=== PATIENT | male | born 1955 | race African-American/Black ===

== ENCOUNTER 2017-09-21 08:28 | Inpatient (IN) | payer OTHER ==
[2017-09-21 09:47] VITALS: BMI 32.2
--- NOTE | 2017-09-21 13:26 | HP ---
CIWA Score - CIWA Score Nausea/Vomitin Muscle Tremors: 3 Anxiety: 3 Agitation: 3 Paroxysmal Sweats: 1-Minimal Palms Moist Orientation: 0-Oriented Tacttile Disturbances: 1-Very Mild Itch/Numbness Auditory Disturbances: 1-Very Mild Visual Disturbances: 0-None Headache: 2-Mild CIWA-Ar Total Score: 17 Admission ROS BHS - HPI Chief Complaint: i need help to stop drinking alcohol Allergies/Adverse Reactions: Allergies Allergy/AdvReac Type Severity Reaction Status Date / Time No Known Allergies Allergy Verified 11/13/15 17:51 History of Present Illness: this 61 years old male with alcohol dependence,seeking detox,withdrawal symptom, last detox unknown 02/23 not completed mmtp 100 mgs /day,last medicated 09/20/17 seen in [place] in 09/19/17 hypertension nicotine dependence schizophrenia and depression longest period of sobriety 7 years Exam Limitations: No Limitations - Ebola screening Have you traveled outside of the country in the last 21 days: No Have you had contact with anyone from an Ebola affected area: No Have you been sick,other than usual withdrawal symptoms: No - Review of Systems Constitutional: Loss of Appetite, Malaise, Night Sweats, Changes in sleep, Weakness, Unintentional Wgt. Loss EENT: reports: Nose Congestion Respiratory: reports: No Symptoms reported Cardiac: reports: No Symptoms Reported GI: reports: Diarrhea, Nausea, Vomiting, Abdominal cramping : reports: No Symptoms Reported Musculoskeletal: reports: Back Pain, Muscle Pain Integumentary: reports: Dryness Neuro: reports: Headache, Tremors Endocrine: reports: No Symptoms Reported Hematology: reports: No Symptoms Reported Psychiatric: reports: No Sypmtoms Reported, Judgement Intact, Mood/Affect Appropiate, Orientated x3, other (schizophrenia with depression) Patient History - Patient Medical History Hx Anemia: No Hx Asthma: No Hx Chronic Obstructive Pulmonary Disease (COPD): No Hx Cancer: No Hx Cardiac Disorders: No Hx Congestive Heart Failure: No Hx Hypertension: Yes (on meds.) Hx Hypercholesterolemia: No Hx Pacemaker: No HX Cerebrovascular Accident: No Hx Seizures: Yes (etoh related last in 2015) Hx Dementia: No Hx Diabetes: No Hx Gastrointestinal Disorders: Yes (acid reflux) Hx Liver Disease: No Hx Genitourinary Disorders: No Hx Sexually Transmitted Disorders: No Hx Renal Disease (ESRD): No Hx Thyroid Disease: No Hx Human Immunodeficiency Virus (HIV): No Hx Hepatitis C: No Hx Depression: Yes Hx Suicide Attempt: No Hx Bipolar Disorder: Yes (hospitalized years) Hx Schizophrenia: Yes Other Medical History: no suicidal,no homicidal - Patient Surgical History Past Surgical History: Yes Hx Neurologic Surgery: No Hx Cataract Extraction: No Hx Cardiac Surgery: No Hx Lung Surgery: No Hx Breast Surgery: No Hx Breast Biopsy: No Hx Abdominal Surgery: No Hx Appendectomy: No Hx Cholecystectomy: No Hx Genitourinary Surgery: No Hx Section: No Hx Orthopedic Surgery: No Other Surgical History: bilateral inguinal hernia repair, AT AGE 22 Anesthesia Reaction: No - PPD History Previous Implant?: Yes Documented Results: Negative w/o proof Implanted On Prior [facility] Admission?: Yes Date: 06/29/15 Results: 0 MM PPD to be Administered?: Yes - Smoking Cessation Smoking history: Current every day smoker Have you smoked in the past 12 months: Yes Aproximately how many cigarettes per day: 20 Hx Chewing Tobacco Use: No Initiated information on smoking cessation: Yes 'Breaking Loose' booklet given: 09/21/17 - Substance & Tx. History Hx Alcohol Use: Yes Hx Substance Use Treatment: Yes (unknown 02/23 not completed) - Substances Abused Alcohol Route: Oral Frequency: Daily Amount used: 2 1/2 [place] Age of first use: 15 Date of Last Use: 09/20/17 Family Disease History - Family Disease History Family Disease History: CA: Brother (four - one cancer), Other: Father ( living, RECOVERING ALCOHOLIC), Mother (living, HTN), Brother, Sister (one ' crib '), Son (four- healthy), Daughter (two -heatlhy) Admission Physical Exam BHS - Vital Signs Vital Signs: Vital Signs - 24 hr 09/21/17 09:42 Temperature 98 F Pulse Rate 75 Respiratory 20 Rate Blood Pressure 133/86 - Physical General Appearance: Yes: Moderate Distress, Tremorous, Irritable, Sweating, Anxious HEENTM: Yes: Normal ENT Inspection, STACEY, Pharynx Normal Respiratory: Yes: Within Normal Limits, Lungs Clear, Normal Breath Sounds Neck: Yes: Within Normal Limits, Supple, Trachea in good position Breast: Yes: Within Normal Limits Cardiology: Yes: Within Normal Limits, Regular Rhythm, Regular Rate, S1, S2 Abdominal: Yes: Within Normal Limits, Normal Bowel Sounds, Flat, Soft Genitourinary: Yes: Within Normal Limits Back: Yes: Within Normal Limits Musculoskeletal: Yes: full range of Motion, Back pain, Muscle Pain Extremities: Yes: Within Normal Limits, Normal Range of Motion, Tremors Neurological: Yes: leasing agent II-XII NML intact, Alert, Motor Strength 5/5 Integumentary: Yes: Dry Lymphatic: Yes: Within Normal Limits - Diagnostic (1) Alcohol dependence with uncomplicated withdrawal Current Visit: Yes Status: Acute (2) Asthma Current Visit: Yes Status: Acute Qualifiers: Asthma severity: mild Asthma persistence: intermittent Asthma complication type: uncomplicated Qualified Code(s): J45.20 - Mild intermittent asthma, uncomplicated (3) Dehydration Current Visit: Yes Status: Acute (4) HTN (hypertension) Current Visit: Yes Status: Chronic Qualifiers: Hypertension type: essential hypertension Qualified Code(s): I10 - Essential (primary) hypertension (5) Methadone maintenance therapy patient Current Visit: Yes Status: Chronic (6) Nicotine dependence Current Visit: Yes Status: Acute Qualifiers: Nicotine product type: cigarettes Substance use status: in withdrawal Qualified Code(s): F17.213 - Nicotine dependence, cigarettes, with withdrawal Cleared for Admission S - Detox or Rehab [facility] Level of Care: Medically Managed Detox Regimen/Protocol: Librium [facility] Breath Alcohol Content Breath Alcohol Content: 0 Urine Drug Screen - Results Drug Screen Negative: No Urine Drug Screen Results: BZO-Benzodiazepines, MTD-Methadone
[2017-09-21] MEDS ORDERED: MENTHOL/PHENOL 1 EACH UD MM PRN (13:36)
[2017-09-21] MEDS ORDERED: P-EPHED 60MG/TRIPROLIDI 2.5MG TABLET PO PRN (13:36)
[2017-09-21] MEDS ORDERED: IBUPROFEN 400 MG TABLET (FP) PO PRN (13:36)
[2017-09-21] MEDS ORDERED: ACETAMINOPHEN 325 MG TABLET (FP) PO PRN (13:36)
[2017-09-21] MEDS ORDERED: LOPERAMIDE HCL 2 MG CAPSULE PO PRN (13:36)
[2017-09-21] MEDS ORDERED: MAGNESIUM HYDROX 2400MG/30ML ORAL SUSPENSION 30 ML CUP PO PRN (13:36)
[2017-09-21] MEDS ORDERED: hydrOXYzine PAMOATE 50 MG CAPSULE (FP) PO PRN (13:36)
[2017-09-21] MEDS ORDERED: MAG HYDROX/AL HYDROX/SIMETH 30 ML UNIT-DOSE CUP PO PRN (13:36)
[2017-09-21] MEDS ORDERED: chlordiazePOXIDE HCL 25 MG CAPSULE PO PRN (13:36)
[2017-09-21] MEDS ORDERED: MAGNESIUM CITRATE 300 ML BOTTLE PO PRN (13:36)
[2017-09-21] MEDS ORDERED: METHADONE HCL 10 MG TABLET PO SCH (13:45)
[2017-09-21] MEDS ORDERED: METHADONE 80 MG, METHADONE 20 MG PO ONE (14:30)
[2017-09-21] MEDS ORDERED: chlordiazePOXIDE HCL 25 MG CAPSULE PO ONE (14:30)
[2017-09-21] MEDS ORDERED: METHADONE HCL 40 MG DISPERSABLE TABLET ONE (14:52)
[2017-09-21] MEDS ORDERED: METHADONE HCL 10 MG TABLET ONE (14:52)
[2017-09-21] MEDS: NICOTINE 21 MG/24 HOURS TOPICAL PATCH TD SCH (15:02)
[2017-09-21] MEDS: guaiFENesin/D-METHORPHAN HB 10 ML UNIT-DOSE CUPS PO PRN (15:02)
--- NOTE | 2017-09-21 17:09 | EKG ---
Test Reason : Blood Pressure : / mmHG Vent. Rate : 068 BPM Atrial Rate : 068 BPM P-R Int : 172 ms QRS Dur : 088 ms QT Int : 408 ms P-R-T Axes : 067 065 047 degrees QTc Int : 433 ms NORMAL SINUS RHYTHM NORMAL ECG NO PREVIOUS ECGS AVAILABLE Confirmed by MD SHELIA, HECTOR ([id number]) on 09/21/2017 5:08:56 PM Referred By: Confirmed By:HECTOR BASS MD
[2017-09-21] MEDS: chlordiazePOXIDE HCL 25 MG CAPSULE PO SCH ×2 (17:42→22:23)
[2017-09-21] MEDS ORDERED: MELATONIN 5 MG TABLETS PO PRN (22:00)
[2017-09-21] MEDS: THIAMINE HCL 100 MG TABLET (FP) PO SCH (22:23)
[2017-09-21 23:16] LABS: URINE APPEARANCE CLEAR; URINE BILIRUBIN NEGATIVE (<2.0 mg/dL); URINE COLOR DKYELLOW; URINE GLUCOSE (UA) NEGATIVE (NEGATIVE); URINE KETONE NEGATIVE (NEGATIVE); URINE LEUK ESTERASE TRACE (NEGATIVE); URINE NITRITE NEGATIVE (NEGATIVE); URINE UROBILINOGEN 4.0 E.U/dl mg/dL (0.2-1.0)
[2017-09-21 23:23] LABS: URINE PROTEIN 1+ (NEGATIVE)
[2017-09-21 23:27] LABS: EPI CELLS RARE /HPF (FEW)
[2017-09-22] MEDS ORDERED: METHADONE HCL 10 MG TABLET ONE (04:43)
[2017-09-22] MEDS ORDERED: METHADONE HCL 40 MG DISPERSABLE TABLET ONE (04:43)
[2017-09-22] MEDS: chlordiazePOXIDE HCL 25 MG CAPSULE PO SCH ×4 (05:18→22:32)
[2017-09-22] MEDS: METHADONE 80 MG, METHADONE 20 MG PO SCH (05:18)
--- NOTE | 2017-09-22 09:59 | CONSULT ---
[facility] Psychiatric Consult - Data Date of interview: 09/22/17 Admission source: Self-referred Identifying data: Mr Chase is a 61 years old Black male, father of 6 children, unemployed on SSI, domiciled seeking detox treatment for alcohol Substance Abuse History: Reports history of alcohol use. Refer to addiction counselor's note for further information Medical History: Significant for history of hypertension, GERD and history of alcohol-related seizue, pancreatitis and bilateral inguinal hernia repair. Patient is on methadone 100 mg/day. Smokes cigarettes 1 ppd Psychiatric History: Patient is known to senior writer from a previous admission in August 2015. History is consistent with previous one provided. Reports history of Paranoid Schizophrenia diagnosed at age 18 and has had multiple psychiatric hospitalizations to various facilities including [facility]( [facility], [facility]. Most recently in 2014 at [facility]. Denies history of suicidal attempt. Reports still seeing a therapist at [facility] in [place], [place] and he is prescribed Zoloft 100 mg po daily, Seroquel 400 mg po HS. At present, reports feeling depressed and sleping poorly Physical/Sexual Abuse/Trauma History: Denies history of emotional, physical or sexual abuse as well as DV relationship Additional Comment: Reports history of 4 previous arrests including one felony conviction. Denies being on parole/probation at present Mental Status Exam - Mental Status Exam Alert and Oriented to: Time, Place, Person Cognitive Function: Fair Patient Appearance: Well Groomed Mood: Depressed Affect: Appropriate Patient Behavior: Cooperative Speech Pattern: Clear Voice Loudness: Normal Thought Process: Intact, Goal Oriented Thought Disorder: Not Present Hallucinations: Denies Suicidal Ideation: Denies Homicidal Ideation: Denies Insight/Judgement: Poor Sleep: Poorly Appetite: Good Muscle strength/Tone: Normal Gait/Station: Normal Psychiatric Findings - Problem List ([place] 1, 2,3) (1) Paranoid schizophrenia Current Visit: No Status: Chronic (2) Alcohol-induced mood disorder Current Visit: Yes Status: Acute (3) Alcohol-induced sleep disorder Current Visit: Yes Status: Acute (4) Alcohol dependence with uncomplicated withdrawal Current Visit: Yes Status: Acute (5) Nicotine dependence Current Visit: Yes Status: Acute Qualifiers: Nicotine product type: cigarettes Substance use status: in withdrawal Qualified Code(s): F17.213 - Nicotine dependence, cigarettes, with withdrawal (6) Opioid dependence on agonist therapy Current Visit: Yes Status: Chronic (7) Obesity (BMI 30.0-34.9) Current Visit: Yes Status: Chronic (8) HTN (hypertension) Current Visit: Yes Status: Chronic Qualifiers: Hypertension type: essential hypertension Qualified Code(s): I10 - Essential (primary) hypertension - Initial Treatment Plan Initial Treatment Plan: 1) Continue Zoloft 100 mg po daily and Seroquel 400 mg po HS. 2) Continue inpatient detoxification
[2017-09-22 10:22] LABS: HEMATOCRIT 46.6 % (35.4-49); HEMOGLOBIN 15.8 GM/dL (11.7-16.9); MCH 34.3 pg (25.7-33.7); MCHC 33.9 g/dl (32.0-35.9); MEAN CELL VOLUME 100.9 fl (80-96); MEAN PLT VOLUME 11.3 fl (7.5-11.1); PLATELET COUNT 110 K/MM3 (134-434); RBC 4.62 M/mm3 (4.00-5.60); RDW 15.4 % (11.9-15.9); WHITE BLOOD COUNT 7.9 K/mm3 (4.0-10.0)
[2017-09-22 10:23] LABS: CHLORIDE 98 mmol/L (98-107); POTASSIUM 4.2 mmol/L (3.5-5.1); SODIUM 141 mmol/L (136-145)
[2017-09-22] MEDS: HYDROCHLOROTHIAZIDE 25 MG TABLET (FP) PO SCH (10:28)
[2017-09-22] MEDS: PRENATAL VITAMINS W/ FOLIC ACID TABLET (FP) PO SCH (10:28)
[2017-09-22] MEDS: NICOTINE 21 MG/24 HOURS TOPICAL PATCH TD SCH (10:28)
[2017-09-22] MEDS: guaiFENesin/D-METHORPHAN HB 10 ML UNIT-DOSE CUPS PO PRN (10:29)
[2017-09-22 11:07] LABS: ALBUMIN 4.3 g/dl (3.4-5.0); ALK PHOS 70 U/L (45-117); ANION GAP 10 (8-16); BILIRUBIN,TOTAL 1.6 mg/dL (0.2-1.0); BLOOD UREA NITROGEN 10 mg/dL (7-18); CALCIUM 9.6 mg/dL (8.5-10.1); CO2 33 mmol/L (21-32); CREATININE 0.8 mg/dL (0.7-1.3); GLUCOSE,RANDOM 104 mg/dL (74-106); SGOT/AST 247 U/L (15-37); SGPT/ALT 104 U/L (12-78)
[2017-09-22] MEDS: SERTRALINE HCL 50 MG TABLET (FP) PO SCH (11:16)
--- NOTE | 2017-09-22 11:30 | PN ---
S CIWA - CIWA Score Nausea/Vomitin-No Nausea/No Vomiting Muscle Tremors: 4-Moderate,w/Arms Extend Anxiety: 4-Mod. Anxious/Guarded Agitation: 4-Moderately Restless Paroxysmal Sweats: 1-Minimal Palms Moist Orientation: 0-Oriented Tacttile Disturbances: 0-None Auditory Disturbances: 0-None Visual Disturbances: 0-None Headache: 0-None Present CIWA-Ar Total Score: 13 BHS Progress Note (SOAP) Subjective: ANXIETY, SWEATS, IRRITABILITY,FATIGUE. OOB AMBULATING WITH STEADY GAIT. Objective: 09/22/17 11:29 Vital Signs 09/22/17 09/22/17 09/22/17 03:30 06:17 06:51 Temperature 97.4 F L Pulse Rate 75 Respiratory 18 18 18 Rate Blood Pressure 140/82 09/22/17 09:40 Temperature Pulse Rate 70 Respiratory 18 Rate Blood Pressure 115/77 Laboratory Tests 09/21/17 09/22/17 09/22/17 23:03 06:00 06:00 WBC 7.9 RBC 4.62 Hgb 15.8 D Hct 46.6 MCV 100.9 H MCH 34.3 H MCHC 33.9 RDW 15.4 Plt Count 110 L D MPV 11.3 H D Sodium 141 Potassium 4.2 Chloride 98 Carbon Dioxide 33 H Anion Gap 10 BUN 10 Creatinine 0.8 Creat Clearance w eGFR > 60 Random Glucose 104 Calcium 9.6 Total Bilirubin 1.6 H D AST 247 H D ALT 104 H Alkaline Phosphatase 70 Total Protein 8.0 D Albumin 4.3 Urine Color Dkyellow Urine Appearance Clear Urine pH 6.0 Ur Specific [place] 1.013 Urine Protein 1+ H Urine Glucose (UA) Negative Urine Ketones Negative Urine Blood Negative Urine Nitrite Negative Urine Bilirubin Negative Urine Urobilinogen 4.0 e.u/dl Ur Leukocyte Esterase Trace Urine WBC (Auto) <1 Urine RBC (Auto) 1 Ur Epithelial Cells Rare Assessment: 09/22/17 11:29 WITHDRAWAL SX Plan: CONTINUE DETOX
[2017-09-22] MEDS: THIAMINE HCL 100 MG TABLET (FP) PO SCH (22:32)
[2017-09-22] MEDS: QUEtiapine FUMARATE 400 MG TABLET PO SCH (22:38)
[2017-09-23] MEDS ORDERED: METHADONE HCL 10 MG TABLET ONE (04:39)
[2017-09-23] MEDS ORDERED: METHADONE HCL 40 MG DISPERSABLE TABLET ONE (04:39)
[2017-09-23] MEDS: chlordiazePOXIDE HCL 25 MG CAPSULE PO SCH ×2 (05:29→10:28)
[2017-09-23] MEDS: METHADONE 80 MG, METHADONE 20 MG PO SCH (05:29)
--- NOTE | 2017-09-23 09:51 | PN ---
S CIWA - CIWA Score Nausea/Vomitin-No Nausea/No Vomiting Muscle Tremors: 4-Moderate,w/Arms Extend Anxiety: 4-Mod. Anxious/Guarded Agitation: 4-Moderately Restless Paroxysmal Sweats: 1-Minimal Palms Moist Orientation: 0-Oriented Tacttile Disturbances: 0-None Auditory Disturbances: 0-None Visual Disturbances: 0-None Headache: 0-None Present CIWA-Ar Total Score: 13 BHS Progress Note (SOAP) Subjective: ANXIETY, SWEATS,FATIGUE. PT REPORTS COUGHING UP GREEN SPUTUM X 2 WEEKS. STATES HE DID NOT SEEK HELP ANY WHERE.STATES " I THOUGHT IT WAS FROM THE ALCOHOL BECAUSE I HAVE BEEN DRINKING SO I DECIDED TO COME TO DETOX". PT IS ALERT O X 3 WITH SLIGHT DROWSINESS. Objective: 09/23/17 09:51 Vital Signs 09/23/17 09/23/17 09/23/17 03:30 05:54 06:30 Temperature 96.7 F L Pulse Rate 68 Respiratory 18 18 18 Rate Blood Pressure 119/78 09/23/17 09:23 Temperature 97.0 F L Pulse Rate 73 Respiratory 20 Rate Blood Pressure 118/69 Laboratory Tests 09/21/17 09/22/17 09/22/17 23:03 06:00 06:00 WBC 7.9 RBC 4.62 Hgb 15.8 D Hct 46.6 MCV 100.9 H MCH 34.3 H MCHC 33.9 RDW 15.4 Plt Count 110 L D MPV 11.3 H D Sodium 141 Potassium 4.2 Chloride 98 Carbon Dioxide 33 H Anion Gap 10 BUN 10 Creatinine 0.8 Creat Clearance w eGFR > 60 Random Glucose 104 Calcium 9.6 Total Bilirubin 1.6 H D AST 247 H D ALT 104 H Alkaline Phosphatase 70 Total Protein 8.0 D Albumin 4.3 Urine Color Dkyellow Urine Appearance Clear Urine pH 6.0 Ur Specific [place] 1.013 Urine Protein 1+ H Urine Glucose (UA) Negative Urine Ketones Negative Urine Blood Negative Urine Nitrite Negative Urine Bilirubin Negative Urine Urobilinogen 4.0 e.u/dl Ur Leukocyte Esterase Trace Urine WBC (Auto) <1 Urine RBC (Auto) 1 Ur Epithelial Cells Rare RPR Titer 09/22/17 06:00 WBC RBC Hgb Hct MCV MCH MCHC RDW Plt Count MPV Sodium Potassium Chloride Carbon Dioxide Anion Gap BUN Creatinine Creat Clearance w eGFR Random Glucose Calcium Total Bilirubin AST ALT Alkaline Phosphatase Total Protein Albumin Urine Color Urine Appearance Urine pH Ur Specific [place] Urine Protein Urine Glucose (UA) Urine Ketones Urine Blood Urine Nitrite Urine Bilirubin Urine Urobilinogen Ur Leukocyte Esterase Urine WBC (Auto) Urine RBC (Auto) Ur Epithelial Cells RPR Titer Nonreactive LUNGS:CLEAR TO AUSCULTATE, NO WHEEZING, CRACKLES OR RHONCHI EKG:NSR NORMAL ECG Assessment: 09/23/17 09:51 WITHDRAWAL SX ACUTE BRONCHITIS Plan: CONTINUE DETOX BACTRIM DS 1 TAB PO BID X 5 DAYS INCREASE PO FLUIDS
[2017-09-23] MEDS: NICOTINE 21 MG/24 HOURS TOPICAL PATCH TD SCH (10:28)
[2017-09-23] MEDS: PRENATAL VITAMINS W/ FOLIC ACID TABLET (FP) PO SCH (10:28)
[2017-09-23] MEDS: HYDROCHLOROTHIAZIDE 25 MG TABLET (FP) PO SCH (10:28)
[2017-09-23] MEDS: SERTRALINE HCL 50 MG TABLET (FP) PO SCH (10:28)
[2017-09-23] MEDS: SULFAMETHOXAZOLE/TRIMETHOPRIM 800MG/160MG D.S. TABLET PO SCH ×2 (10:30→22:22)
[2017-09-23] MEDS: guaiFENesin/D-METHORPHAN HB 10 ML UNIT-DOSE CUPS PO PRN (10:46)
[2017-09-23] MEDS: chlordiazePOXIDE 5 MG CAPSULE PO SCH ×2 (17:41→22:22)
[2017-09-23] MEDS: THIAMINE HCL 100 MG TABLET (FP) PO SCH (22:22)
[2017-09-23] MEDS: QUEtiapine FUMARATE 400 MG TABLET PO SCH (23:02)
[2017-09-24] MEDS ORDERED: METHADONE HCL 10 MG TABLET ONE (04:32)
[2017-09-24] MEDS ORDERED: METHADONE HCL 40 MG DISPERSABLE TABLET ONE (04:32)
[2017-09-24] MEDS: METHADONE 80 MG, METHADONE 20 MG PO SCH (05:25)
[2017-09-24] MEDS: chlordiazePOXIDE 5 MG CAPSULE PO SCH ×2 (05:25→10:20)
[2017-09-24] MEDS: guaiFENesin/D-METHORPHAN HB 10 ML UNIT-DOSE CUPS PO PRN (07:34)
[2017-09-24] MEDS: PRENATAL VITAMINS W/ FOLIC ACID TABLET (FP) PO SCH (10:20)
[2017-09-24] MEDS: SULFAMETHOXAZOLE/TRIMETHOPRIM 800MG/160MG D.S. TABLET PO SCH ×2 (10:20→22:26)
[2017-09-24] MEDS: HYDROCHLOROTHIAZIDE 25 MG TABLET (FP) PO SCH (10:20)
[2017-09-24] MEDS: NICOTINE 21 MG/24 HOURS TOPICAL PATCH TD SCH (10:20)
[2017-09-24] MEDS: SERTRALINE HCL 50 MG TABLET (FP) PO SCH (10:20)
--- NOTE | 2017-09-24 12:03 | PN ---
BHS Progress Note (SOAP) Subjective: ANXIETY, SWEATS AND FATIGUE. PT IS OOB AMBULATING WITH STEADY GAIT. DECREASED TREMORS. Objective: 09/24/17 12:03 Vital Signs 09/24/17 09/24/17 06:15 09:44 Temperature 97.6 F 95.1 F L Pulse Rate 69 85 Respiratory 20 20 Rate Blood Pressure 112/75 120/78 Laboratory Tests 09/21/17 09/22/17 09/22/17 23:03 06:00 06:00 WBC 7.9 RBC 4.62 Hgb 15.8 D Hct 46.6 MCV 100.9 H MCH 34.3 H MCHC 33.9 RDW 15.4 Plt Count 110 L D MPV 11.3 H D Sodium 141 Potassium 4.2 Chloride 98 Carbon Dioxide 33 H Anion Gap 10 BUN 10 Creatinine 0.8 Creat Clearance w eGFR > 60 Random Glucose 104 Calcium 9.6 Total Bilirubin 1.6 H D AST 247 H D ALT 104 H Alkaline Phosphatase 70 Total Protein 8.0 D Albumin 4.3 Urine Color Dkyellow Urine Appearance Clear Urine pH 6.0 Ur Specific [place] 1.013 Urine Protein 1+ H Urine Glucose (UA) Negative Urine Ketones Negative Urine Blood Negative Urine Nitrite Negative Urine Bilirubin Negative Urine Urobilinogen 4.0 e.u/dl Ur Leukocyte Esterase Trace Urine WBC (Auto) <1 Urine RBC (Auto) 1 Ur Epithelial Cells Rare RPR Titer 09/22/17 06:00 WBC RBC Hgb Hct MCV MCH MCHC RDW Plt Count MPV Sodium Potassium Chloride Carbon Dioxide Anion Gap BUN Creatinine Creat Clearance w eGFR Random Glucose Calcium Total Bilirubin AST ALT Alkaline Phosphatase Total Protein Albumin Urine Color Urine Appearance Urine pH Ur Specific [place] Urine Protein Urine Glucose (UA) Urine Ketones Urine Blood Urine Nitrite Urine Bilirubin Urine Urobilinogen Ur Leukocyte Esterase Urine WBC (Auto) Urine RBC (Auto) Ur Epithelial Cells RPR Titer Nonreactive Assessment: 09/24/17 12:03 WITHDRAWAL SX Plan: CONTINUE DETOX
[2017-09-24] MEDS: chlordiazePOXIDE HCL 10 MG CAPSULE PO SCH ×2 (17:45→22:26)
[2017-09-24] MEDS: QUEtiapine FUMARATE 400 MG TABLET PO SCH (22:27)
[2017-09-24] MEDS: THIAMINE HCL 100 MG TABLET (FP) PO SCH (22:27)
--- NOTE | 2017-09-24 23:12 | PN ---
BHS Progress Note Note: Patient schedule for discharge on 09/25 wants to leave at 7 am to ensure getting to their MMTP/OTP program before they close.
[2017-09-25] MEDS: guaiFENesin/D-METHORPHAN HB 10 ML UNIT-DOSE CUPS PO PRN (01:23)
[2017-09-25] MEDS ORDERED: METHADONE HCL 40 MG DISPERSABLE TABLET ONE (03:29)
[2017-09-25] MEDS ORDERED: METHADONE HCL 10 MG TABLET ONE (03:29)
[2017-09-25] MEDS: METHADONE 80 MG, METHADONE 20 MG PO SCH (05:58)
[2017-09-25] MEDS: chlordiazePOXIDE HCL 10 MG CAPSULE PO SCH (05:58)
[2017-09-25 06:17] VITALS: BP 110/69; PULSE 76; TEMP 97.6
--- NOTE | 2017-09-25 19:24 | PN ---
BHS Progress Note (SOAP) Subjective: Patient denies current Detox symptoms and reports that he feels well overall. Objective: PATIENT A & O X 3, OBSERVED AMBULATING ON UNIT. NO ACUTE DISTRESS. 09/25/17 19:23 Vital Signs Temperature 97.6 F 09/25/17 06:16 Pulse Rate 76 09/25/17 06:16 Respiratory Rate 18 09/25/17 06:16 Blood Pressure 110/69 09/25/17 06:16 O2 Sat by Pulse Oximetry (%) Laboratory Tests 09/21/17 09/22/17 09/22/17 23:03 06:00 06:00 WBC 7.9 RBC 4.62 Hgb 15.8 D Hct 46.6 MCV 100.9 H MCH 34.3 H MCHC 33.9 RDW 15.4 Plt Count 110 L D MPV 11.3 H D Sodium 141 Potassium 4.2 Chloride 98 Carbon Dioxide 33 H Anion Gap 10 BUN 10 Creatinine 0.8 Creat Clearance w eGFR > 60 Random Glucose 104 Calcium 9.6 Total Bilirubin 1.6 H D AST 247 H D ALT 104 H Alkaline Phosphatase 70 Total Protein 8.0 D Albumin 4.3 Urine Color Dkyellow Urine Appearance Clear Urine pH 6.0 Ur Specific [place] 1.013 Urine Protein 1+ H Urine Glucose (UA) Negative Urine Ketones Negative Urine Blood Negative Urine Nitrite Negative Urine Bilirubin Negative Urine Urobilinogen 4.0 e.u/dl Ur Leukocyte Esterase Trace Urine WBC (Auto) <1 Urine RBC (Auto) 1 Ur Epithelial Cells Rare RPR Titer 09/22/17 06:00 WBC RBC Hgb Hct MCV MCH MCHC RDW Plt Count MPV Sodium Potassium Chloride Carbon Dioxide Anion Gap BUN Creatinine Creat Clearance w eGFR Random Glucose Calcium Total Bilirubin AST ALT Alkaline Phosphatase Total Protein Albumin Urine Color Urine Appearance Urine pH Ur Specific [place] Urine Protein Urine Glucose (UA) Urine Ketones Urine Blood Urine Nitrite Urine Bilirubin Urine Urobilinogen Ur Leukocyte Esterase Urine WBC (Auto) Urine RBC (Auto) Ur Epithelial Cells RPR Titer Nonreactive LABS NOTED. Assessment: 09/25/17 19:24 COMPLETION OF DETOX REGIMEN. Plan: PATIENT SCHEDULED FOR DISCHARGE FROM DETOX UNIT TODAY.
--- NOTE | 2017-09-25 19:29 | DS ---
[facility] Detox Discharge Summary Admission Date: 09/21/17 Discharge Date: 09/25/17 - History Present History: Alcohol Dependence, Opioid Dependence, MMTP Additional Comments: PATIENT RETURNING TO [facility] ([place] FOR AFTERCARE. PATIENT ALSO ADVISED TO CONSIDER LOCAL 12-STEP / NA/ [facility] OUTPATIENT SUPPORT [facility] PROGRAMS FOR AFTERCARE. Pertinent Past History: Asthma, HTN, MMTP, History of seizure (Due to Withdrawal), Paranoid Schizophrenia, Bipolar Disorder, Depression,, Acid Reflux, Nicotine Dependence. - Physical Exam Results Vital Signs: Vital Signs Temperature 97.6 F 09/25/17 06:16 Pulse Rate 76 09/25/17 06:16 Respiratory Rate 18 09/25/17 06:16 Blood Pressure 110/69 09/25/17 06:16 O2 Sat by Pulse Oximetry (%) Pertinent Admission Physical Exam Findings: WITHDRAWAL SYMPTOMS. Laboratory Tests 09/21/17 09/22/17 09/22/17 23:03 06:00 06:00 WBC 7.9 RBC 4.62 Hgb 15.8 D Hct 46.6 MCV 100.9 H MCH 34.3 H MCHC 33.9 RDW 15.4 Plt Count 110 L D MPV 11.3 H D Sodium 141 Potassium 4.2 Chloride 98 Carbon Dioxide 33 H Anion Gap 10 BUN 10 Creatinine 0.8 Creat Clearance w eGFR > 60 Random Glucose 104 Calcium 9.6 Total Bilirubin 1.6 H D AST 247 H D ALT 104 H Alkaline Phosphatase 70 Total Protein 8.0 D Albumin 4.3 Urine Color Dkyellow Urine Appearance Clear Urine pH 6.0 Ur Specific [place] 1.013 Urine Protein 1+ H Urine Glucose (UA) Negative Urine Ketones Negative Urine Blood Negative Urine Nitrite Negative Urine Bilirubin Negative Urine Urobilinogen 4.0 e.u/dl Ur Leukocyte Esterase Trace Urine WBC (Auto) <1 Urine RBC (Auto) 1 Ur Epithelial Cells Rare RPR Titer 09/22/17 06:00 WBC RBC Hgb Hct MCV MCH MCHC RDW Plt Count MPV Sodium Potassium Chloride Carbon Dioxide Anion Gap BUN Creatinine Creat Clearance w eGFR Random Glucose Calcium Total Bilirubin AST ALT Alkaline Phosphatase Total Protein Albumin Urine Color Urine Appearance Urine pH Ur Specific [place] Urine Protein Urine Glucose (UA) Urine Ketones Urine Blood Urine Nitrite Urine Bilirubin Urine Urobilinogen Ur Leukocyte Esterase Urine WBC (Auto) Urine RBC (Auto) Ur Epithelial Cells RPR Titer Nonreactive LABS NOTED. - Treatment Hospital Course: Detox Protocol Followed, Detoxed Safely, Responded well, Discharged Condition Good Patient has Accepted a Rehab Referral to: [facility] - Medication Discharge Medications: Ambulatory Orders Hydrochlorothiazide [Hctz -] 50 mg PO DAILY 09/21/17 Quetiapine Fumarate [Seroquel -] 400 mg PO HS #30 tablet 09/22/17 Sertraline HCl [Zoloft] 100 mg PO DAILY #30 tablet 09/22/17 - Diagnosis (1) Alcohol dependence with uncomplicated withdrawal Status: Acute (2) Alcohol-induced mood disorder Status: Acute (3) Alcohol-induced sleep disorder Status: Acute (4) Asthma Status: Acute Qualifiers: Asthma severity: mild Asthma persistence: intermittent Asthma complication type: uncomplicated Qualified Code(s): J45.20 - Mild intermittent asthma, uncomplicated (5) Dehydration Status: Acute (6) Nicotine dependence Status: Acute Qualifiers: Nicotine product type: cigarettes Substance use status: in withdrawal Qualified Code(s): F17.213 - Nicotine dependence, cigarettes, with withdrawal (7) HTN (hypertension) Status: Chronic Qualifiers: Hypertension type: essential hypertension Qualified Code(s): I10 - Essential (primary) hypertension (8) Methadone maintenance therapy patient Status: Chronic (9) Obesity (BMI 30.0-34.9) Status: Chronic (10) Opioid dependence on agonist therapy Status: Chronic (11) Paranoid schizophrenia Status: Chronic - AMA Did Patient Leave Against Medical Advice: No
== END 2017-09-25 06:40 | disposition home or self-care (01) | DRG 775 ==
LOC: YASAS 08:28 → Y3N 13:54
PROVIDERS: ADMIT Internal Medicine; ATTEND Internal Medicine
PROC: HZ2ZZZZ Detoxification Services for Substance Abuse Treatment (ICD-10-PCS; principal; 2017-09-21)
DX: F10.230 Alcohol dependence with withdrawal, uncomplicated (principal); F17.210 Nicotine dependence, cigarettes, uncomplicated; F10.24 Alcohol dependence with alcohol-induced mood disorder; F31.9 Bipolar disorder, unspecified; F20.0 Paranoid schizophrenia; I10 Essential (primary) hypertension; J45.20 Mild intermittent asthma, uncomplicated; E86.0 Dehydration; E66.9 Obesity, unspecified; Z68.32 Body mass index [BMI] 32.0-32.9, adult; J40 Bronchitis, not specified as acute or chronic
CPT/HCPCS: 36415; 80053; 81003; 81015; 85027; 86593; 93005; 93010

== ENCOUNTER 2018-07-28 13:28 | Inpatient (IN) | payer OTHER ==
[2018-07-28 15:54] VITALS: BMI 31.9
--- NOTE | 2018-07-28 16:31 | HP ---
CIWA Score Nausea/Vomitin Muscle Tremors: 4-Moderate,w/Arms Extend Anxiety: 4-Mod. Anxious/Guarded Agitation: 1-Slight > Activity Paroxysmal Sweats: No Perspiration Orientation: 0-Oriented Tacttile Disturbances: 0-None Auditory Disturbances: 0-None Visual Disturbances: 0-None Headache: 0-None Present CIWA-Ar Total Score: 15 - Admission Criteria OASAS Guidelines: Admission for Medically Managed Detox: Requires at least one of the followin. CIWA greater than 12 2. Seizures within the past 24 hours 3. Delirium tremens within the past 24 hours 4. Hallucinations within the past 24 hours 5. Acute intervention needed for co occurring medical disorder 6. Acute intervention needed for co occurring psychiatric disorder 7. Severe withdrawal that cannot be handled at a lower level of care (continued vomiting, continued diarrhea, abnormal vital signs) requiring intravenous medication and/or fluids 8. Admission ROS [facility] Chief Complaint: "I Want To Clean Up." Patient is here to Detox from Alcohol. Allergies/Adverse Reactions: Allergies Allergy/AdvReac Type Severity Reaction Status Date / Time No Known Allergies Allergy Verified 07/28/18 17:29 History of Present Illness: Patient is 62 YO male here for Detox from Alcohol. Patient has had several previous Detox / Rehab admissions at [facility] (Last: 09/2017). Patient is a Client at [facility] ([place] Last Day Medicated : 07/27/2018. VERIFICATION PENDING. NOTE: DUE TO TIME OF DAY IN WHICH DETOX ADMISSION H & P IS BEING PERFORMED, RN WILL BE UNABLE TO CONTACT [facility] TO VERIFY PATIENT'S DAILY [facility] DOSE PROGRAM IS CLOSED AT THIS TIME. PATIENT'S LAST DOSE OF METHADONE WAS YESTERDAY, 07/27/2018. PATIENT AWARE THAT HE WILL NOT RECEIVE HIS USUAL MAINTENANCE DOSE OF METHADONE FOR TODAY DOSE DUE TO INABILITY TO VERIFY DOSE A TTHIS TIME. DOSAGE CHAVA BE VERIFIED BY RN TOMORROW AM. PATIENT VERBALIZED UNDERSTANDING OF THIS. Confidential Drug Utilization Report Search Terms: Salvatore Mcdonough, 1955 Search Date: 07/28/2018 04:28:20 PM The Drug Utilization Report below displays all of the controlled substance prescriptions, if any, that your patient has filled in the last twelve months. The information displayed on this report is compiled from pharmacy submissions to the Department, and accurately reflects the information as submitted by the pharmacies. This report was requested by: Chris Thompson | Reference #: [id number] There are no results for the search terms that you entered. Exam Limitations: No Limitations - Ebola screening Have you traveled outside of the country in the last 21 days: No Have you had contact with anyone from an Ebola affected area: No Have you been sick,other than usual withdrawal symptoms: No Do you have a fever: No - Review of Systems Constitutional: Chills, Fever, Loss of Appetite, Malaise, Changes in sleep EENT: reports: Tearing Respiratory: reports: SOB with Exertion Cardiac: reports: No Symptoms Reported GI: reports: Nausea, Poor Appetite, Vomiting, Indigestion, Abdominal cramping : reports: No Symptoms Reported Musculoskeletal: reports: Joint Pain (Right Knee Pain X approx. 3 weeks. Patient denies known history of Previous Injury to Right Knee or of Knee disorder. No Erythema, Swelling, or wounds noted in right Knee area.), Joint Stiffness Integumentary: reports: No Symptoms Reported Neuro: reports: Tremors Endocrine: reports: No Symptoms Reported Hematology: reports: No Symptoms Reported Psychiatric: reports: Judgement Intact, Mood/Affect Appropiate, Orientated x3 Other Systems: Reviewed and Negative Patient History - Patient Medical History Hx Anemia: No Hx Asthma: No Hx Chronic Obstructive Pulmonary Disease (COPD): No Hx Cancer: No Hx Cardiac Disorders: No Hx Congestive Heart Failure: No Hx Hypertension: Yes (Takes HCTZ.) Hx Hypercholesterolemia: Yes (No Meds.) Hx Pacemaker: No HX Cerebrovascular Accident: No Hx Seizures: No Hx Dementia: No Hx Diabetes: No Hx Gastrointestinal Disorders: Yes (acid reflux; Has Taken Zantac in the Past.) Hx Liver Disease: No Hx Genitourinary Disorders: No Hx Sexually Transmitted Disorders: No Hx Renal Disease (ESRD): No Hx Thyroid Disease: No Hx Human Immunodeficiency Virus (HIV): No (Last Tested: Approx. 2 Years ago.) Hx Hepatitis C: No (Last Tested: Approx. 2 Years ago.) Hx Depression: Yes (Takes Seroquel.) Hx Suicide Attempt: No (PATIENT DENEIS CURRENT SI / HI.) Hx Bipolar Disorder: Yes (Takes Seroquel.) Hx Schizophrenia: Yes (No Medication.) Other Medical History: DENIES. - Patient Surgical History Past Surgical History: Yes Hx Neurologic Surgery: No Hx Cataract Extraction: No Hx Cardiac Surgery: No Hx Lung Surgery: No Hx Breast Surgery: No Hx Breast Biopsy: No Hx Abdominal Surgery: No Hx Appendectomy: No Hx Cholecystectomy: No Hx Genitourinary Surgery: No Hx Section: No Hx Orthopedic Surgery: No Other Surgical History: bilateral inguinal hernia repair, AT AGE 22 Anesthesia Reaction: No - PPD History Previous Implant?: Yes Documented Results: Negative w/proof Implanted On Prior [facility] Admission?: Yes Date: 09/23/17 Results: 0 MM PPD to be Administered?: No - Reproductive History Patient is a Female of Child Bearing Age (11 -55 yrs old): No (PATIENT IS MALE.) - Smoking Cessation Smoking history: Current every day smoker Have you smoked in the past 12 months: Yes Aproximately how many cigarettes per day: 10 Cigars Per Day: 0 Hx Chewing Tobacco Use: No Initiated information on smoking cessation: Yes 'Breaking Loose' booklet given: 07/28/18 (GIVEN ON UNIT.) - Substance & Tx. History Hx Alcohol Use: Yes Hx Substance Use: Yes Substance Use Type: Alcohol, Heroin, Prescribed (M.M.T.P. Methadone, 100 mg, Verification Pending.) Hx Substance Use Treatment: Yes (Previous Detox/Rehab at [facility] (Last: 09/24, Completed).) - Substances Abused Alcohol Route: Oral Frequency: Daily Amount used: 2 Pints Vodka. Age of first use: 14 Date of Last Use: 07/28/18 Heroin Route: Inhalation Frequency: Daily Amount used: 1 Bag. Age of first use: 17 Date of Last Use: 07/27/18 Family Disease History - Family Disease History Family Disease History: CA: Brother (Four - one from Throat Cancer), Other: Father (living, RECOVERING ALCOHOLIC), Brother, Sister (One ' crib '), Son (four- healthy), Daughter (two -heatlhy) Admission Physical Exam BHS - Vital Signs Vital Signs: Vital Signs - 24 hr 07/28/18 15:52 Temperature 97.3 F L Pulse Rate 82 Respiratory 18 Rate Blood Pressure 121/69 - Physical General Appearance: Yes: No Apparent Distress, Nourished, Appropriately Dressed , Tremorous, Anxious HEENTM: Yes: Hearing grossly Normal, Normocephalic, Normal Voice, STACEY, Pharynx Normal Respiratory: Yes: Chest Non-Tender, Lungs Clear, No Respiratory Distress, No Accessory Muscle Use Neck: Yes: No masses,lesions,Nodules, Supple, Trachea in good position Breast: Yes: Breast Exam Deferred Cardiology: Yes: Regular Rhythm, Regular Rate, S1, S2 Abdominal: Yes: Normal Bowel Sounds, Non Tender, Soft, Protuberent Genitourinary: Yes: Within Normal Limits Back: Yes: Normal Inspection Musculoskeletal: Yes: Gait Steady, Joint Stiffness (Right Knee, Patient Points Primarily To Patella Area. No erythema, Swelling, or Wounds noted in right Knee area.) Extremities: Yes: Normal Capillary Refill, Tremors Neurological: Yes: Fully Oriented, Alert, Normal Mood/Affect, Normal Response Integumentary: Yes: Normal Color, Dry, Warm Lymphatic: Yes: Within Normal Limits - Diagnostic (1) History of depression Current Visit: Yes Status: Chronic (2) History of bipolar disorder Current Visit: Yes Status: Chronic (3) History of schizophrenia Current Visit: Yes Status: Chronic (4) Right knee pain Current Visit: Yes Status: Acute Qualifiers: Chronicity: acute Qualified Code(s): M25.561 - Pain in right knee (5) Acid reflux Current Visit: Yes Status: Chronic Qualifiers: Esophagitis presence: esophagitis presence not specified Qualified Code(s) : K21.9 - Gastro-esophageal reflux disease without esophagitis (6) Alcohol dependence with uncomplicated withdrawal Current Visit: Yes Status: Acute (7) Nicotine dependence Current Visit: Yes Status: Chronic Qualifiers: Nicotine product type: cigarettes Substance use status: uncomplicated Qualified Code(s): F17.210 - Nicotine dependence, cigarettes, uncomplicated (8) HTN (hypertension) Current Visit: No Status: Chronic Qualifiers: Hypertension type: essential hypertension Qualified Code(s): I10 - Essential (primary) hypertension (9) Methadone maintenance therapy patient Current Visit: Yes Status: Chronic (10) Hypercholesterolemia Current Visit: Yes Status: Suspected Cleared for Admission S - Detox or Rehab [facility] Level of Care: Medically Managed Detox Regimen/Protocol: Librium [facility] Breath Alcohol Content Breath Alcohol Content: 0.138 Urine Drug Screen - Results Drug Screen Negative: No Urine Drug Screen Results: THC-Marijuana, OPI-Opiates, BZO-Benzodiazepines, MTD- Methadone, FEN-Fentanyl Inpatient Rehab Admission - Rehab Decision to Admit Inpatient rehab admission?: No
[2018-07-28] MEDS ORDERED: chlordiazePOXIDE HCL 25 MG CAPSULE PO ONE (17:47)
[2018-07-28] MEDS ORDERED: METHOCARBAMOL 500 MG TABLET PO PRN (17:47)
[2018-07-28] MEDS ORDERED: MAGNESIUM HYDROX 2400MG/30ML ORAL SUSPENSION 30 ML CUP PO PRN (17:47)
[2018-07-28] MEDS ORDERED: MAGNESIUM CITRATE 300 ML BOTTLE PO PRN (17:47)
[2018-07-28] MEDS ORDERED: chlordiazePOXIDE HCL 25 MG CAPSULE PO PRN (17:47)
[2018-07-28] MEDS ORDERED: DICYCLOMINE HCL 10 MG CAPSULE PO PRN (17:47)
[2018-07-28] MEDS ORDERED: MAG HYDROX/AL HYDROX/SIMETH 30 ML UNIT-DOSE CUP PO PRN (17:47)
[2018-07-28] MEDS ORDERED: MENTHOL/PHENOL 1 EACH UD MM PRN (17:47)
[2018-07-28] MEDS ORDERED: BISMUTH SUBSALICYLATE 524 MG/30 ML UD PO PRN (17:47)
[2018-07-28] MEDS ORDERED: NICOTINE POLACRILEX 2 MG GUM BUC PRN (17:47)
[2018-07-28] MEDS ORDERED: ACETAMINOPHEN 325 MG TABLET (FP) PO PRN (17:47)
[2018-07-28] MEDS: NICOTINE 21 MG/24 HOURS TOPICAL PATCH TD SCH (18:44)
[2018-07-28] MEDS: chlordiazePOXIDE HCL 25 MG CAPSULE PO SCH (22:15)
[2018-07-28] MEDS: RANITIDINE HCL 150 MG TABLET (FP) PO SCH (22:15)
[2018-07-28] MEDS: THIAMINE HCL 100 MG TABLET (FP) PO SCH (22:15)
[2018-07-28] MEDS: MELATONIN 5 MG TABLETS PO PRN (22:16)
[2018-07-29] MEDS: chlordiazePOXIDE HCL 25 MG CAPSULE PO SCH ×4 (05:16→22:00)
[2018-07-29] MEDS ORDERED: METHADONE HCL 10 MG TABLET PO ONE (08:32)
[2018-07-29] MEDS ORDERED: METHADONE 80 MG, METHADONE 20 MG PO ONE (08:40)
[2018-07-29] MEDS ORDERED: METHADONE HCL 40 MG DISPERSABLE TABLET ONE (09:17)
[2018-07-29] MEDS ORDERED: METHADONE HCL 10 MG TABLET ONE (09:18)
[2018-07-29] MEDS: PRENATAL VITAMINS W/ FOLIC ACID TABLET (FP) PO SCH (09:25)
[2018-07-29] MEDS: RANITIDINE HCL 150 MG TABLET (FP) PO SCH ×2 (09:25→22:00)
--- NOTE | 2018-07-29 09:40 | CONSULT ---
[facility] Psychiatric Consult - Data Date of interview: 07/29/18 Admission source: [facility] Identifying data: Patient is a 63 year old male, father of six, unemployed, domiciled, and is supported by [facility]. This is one of multiple admissions for patient. Patient admitted to for alcohol and opiate dependence. Substance Abuse History: Smoking Cessation. Smoking history: Current every day smoker. Have you smoked in the past 12 months: Yes. Aproximately how many cigarettes per day: 10. Cigars Per Day: 0. Hx Chewing Tobacco Use: No. Initiated information on smoking cessation: Yes. 'Breaking Loose' booklet given : 07/28/18 (GIVEN ON UNIT.). - Substance & Tx. History. Hx Alcohol Use: Yes. Hx Substance Use: Yes. Substance Use Type: Alcohol, Heroin, Prescribed ( M.M.T.P. Methadone, 100 mg, Verification Pending.). Hx Substance Use Treatment : Yes (Previous Detox/Rehab at [facility] (Last: 09/24, Completed).). - Substances Abused. Alcohol. Route: Oral. Frequency: Daily. Amount used: 2 Pints Vodka. Age of first use: 14. Date of Last Use: 07/28/18. Heroin. Route: Inhalation. Frequency: Daily. Amount used: 1 Bag. Age of first use: 17. Date of Last Use: 07/27/18 Medical History: hypertension, acid reflux, bilateral inguinal hernia repair at age 22 Psychiatric History: Patient reports h/o four psychiatric hospitalizations all at [facility]. Mr. Chase most recent psychiatric hospitalization was over ten years ago. He reports diagnosis of schizophrenia. Patient is asymtompatic, no psychosis noted. Mr. Chase receives outpatient psychiatric care from [facility] in the [place] and reports being prescribed Seroquel 400mg HS. Patient is also on methadone maintenance of 100mg daily. Mr. Chase denies h/o suicide attempt. At present, patient reports feeling fine but is experiencing difficulty sleeping. Physical/Sexual Abuse/Trauma History: denies. Mental Status Exam - Mental Status Exam Alert and Oriented to: Time, Place, Person Cognitive Function: Good Patient Appearance: Well Groomed Mood: Euthymic Affect: Appropriate Patient Behavior: Appropriate, Cooperative Speech Pattern: Clear, Appropriate Voice Loudness: Normal Thought Process: Intact, Goal Oriented Thought Disorder: Not Present Hallucinations: Denies Suicidal Ideation: Denies Homicidal Ideation: Denies Insight/Judgement: Poor Sleep: Poorly Appetite: Fair Muscle strength/Tone: Normal Gait/Station: Normal Psychiatric Findings - Problem List ([place] 1, 2,3) (1) Substance-induced sleep disorder Current Visit: Yes Status: Acute (2) Alcohol dependence with uncomplicated withdrawal Current Visit: Yes Status: Acute (3) Methadone maintenance therapy patient Current Visit: Yes Status: Chronic (4) Nicotine dependence Current Visit: Yes Status: Chronic Qualifiers: Nicotine product type: cigarettes Substance use status: uncomplicated Qualified Code(s): F17.210 - Nicotine dependence, cigarettes, uncomplicated (5) Schizophrenia Current Visit: Yes Status: Suspected Comment: Self reports. Patient is asymptomatic (6) Substance induced mood disorder Current Visit: Yes Status: Acute - Initial Treatment Plan Initial Treatment Plan: Psychoeduction provided. Detoxification in progress. [facility] pharmacy contacted with patient's permission at and able to speak to pharmacist. As per pharmacist patient has no prescription of seroquel. Stated his last prescription was for levoquin in December of 2017. Patient informed that he was never given a prescription of seroquel. Patient requesting assembly instructions writer call pharmacy again. [facility] pharmacy contacted again with patient present. Surplus Property [employer] able to speak to another pharmacy staff who stated patient does not receive seroquel but has received levoquin in december of 2017. Pharmacy staff member able to recall patient and informed assembly instructions writer of 's name which is Ms. Nicolle Frias. Patient also stated that the female whose name is Nicolle Serrano is his . As per the pharmacy staff, patient's is prescribed seroquel 400mg. The prescription is written out to patient's and not to him. After interaction with pharmacy staff, assembly instructions writer made multiple attempts to contact medical staff at [facility] for medication verification but attempts were unsuccessful. At this time it appears patient may be taking his 's seroquel 400mg dosaged which is not his medication. Will order Seroquel 100mg HS.
[2018-07-29] MEDS: NICOTINE 21 MG/24 HOURS TOPICAL PATCH TD SCH (10:08)
[2018-07-29] MEDS: ACETAMINOPHEN 325 MG TABLET (FP) PO PRN ×2 (10:09→17:20)
[2018-07-29 11:30] LABS: HEMATOCRIT 42.9 % (35.4-49); HEMOGLOBIN 14.6 GM/dL (11.7-16.9); MCH 32.7 pg (25.7-33.7); PLATELET COUNT 168 K/MM3 (134-434); RBC 4.47 M/mm3 (4.00-5.60); RDW 16.5 % (11.9-15.9); WHITE BLOOD COUNT 5.7 K/mm3 (4.0-10.0)
[2018-07-29 11:48] LABS: ALBUMIN 3.9 g/dl (3.4-5.0); ALK PHOS 76 U/L (45-117); ANION GAP 7 MMOL/L (8-16); BILIRUBIN,TOTAL 0.9 mg/dL (0.2-1); BLOOD UREA NITROGEN 9 mg/dL (7-18); CALCIUM 8.9 mg/dL (8.5-10.1); CHLORIDE 97 mmol/L (98-107); CO2 32 mmol/L (21-32); CREATININE 0.7 mg/dL (0.55-1.3); GLUCOSE,RANDOM 90 mg/dL (74-106); POTASSIUM 3.6 mmol/L (3.5-5.1); SGOT/AST 98 U/L (15-37); SGPT/ALT 78 U/L (13-61); SODIUM 136 mmol/L (136-145); TOT PROT 7.2 g/dl (6.4-8.2)
[2018-07-29 12:05] LABS: SICKLE CELL SCREEN NEGATIVE (NEGATIVE)
--- NOTE | 2018-07-29 14:23 | PN ---
S CIWA - CIWA Score Nausea/Vomitin Muscle Tremors: 2 Anxiety: 2 Agitation: 2 Paroxysmal Sweats: 2 Orientation: 0-Oriented Tacttile Disturbances: 1-Very Mild Itch/Numbness Auditory Disturbances: 1-Very Mild Visual Disturbances: 0-None Headache: 2-Mild CIWA-Ar Total Score: 14 S Progress Note (SOAP) Subjective: alert,irritable,anxious,interrupted sleep,tremor Objective: 07/29/18 14:22 Vital Signs Temperature 97.0 F L 07/29/18 13:50 Pulse Rate 106 H 07/29/18 13:50 Respiratory Rate 18 07/29/18 13:50 Blood Pressure 138/82 07/29/18 13:50 O2 Sat by Pulse Oximetry (%) 07/29/18 14:23 Laboratory Last Values WBC 5.7 K/mm3 (4.0-10.0) 07/29/18 07:00 RBC 4.47 M/mm3 (4.00-5.60) 07/29/18 07:00 Hgb 14.6 GM/dL (11.7-16.9) 07/29/18 07:00 Hct 42.9 % (35.4-49) 07/29/18 07:00 MCV 96.0 fl (80-96) 07/29/18 07:00 MCH 32.7 pg (25.7-33.7) 07/29/18 07:00 MCHC 34.0 g/dl (32.0-35.9) 07/29/18 07:00 RDW 16.5 % (11.9-15.9) H 07/29/18 07:00 Plt Count 168 K/MM3 (134-434) D 07/29/18 07:00 MPV 9.0 fl (7.5-11.1) D 07/29/18 07:00 Sickle Cell Screen Negative (NEGATIVE) 07/29/18 07:00 Sodium 136 mmol/L (136-145) 07/29/18 07:00 Potassium 3.6 mmol/L (3.5-5.1) 07/29/18 07:00 Chloride 97 mmol/L (98-107) L 07/29/18 07:00 Carbon Dioxide 32 mmol/L (21-32) 07/29/18 07:00 Anion Gap 7 MMOL/L (8-16) L 07/29/18 07:00 BUN 9 mg/dL (7-18) 07/29/18 07:00 Creatinine 0.7 mg/dL (0.55-1.3) 07/29/18 07:00 Creat Clearance w eGFR 115.04 (>60) 07/29/18 07:00 Random Glucose 90 mg/dL (74-106) 07/29/18 07:00 Calcium 8.9 mg/dL (8.5-10.1) 07/29/18 07:00 Total Bilirubin 0.9 mg/dL (0.2-1) 07/29/18 07:00 AST 98 U/L (15-37) H 07/29/18 07:00 ALT 78 U/L (13-61) H 07/29/18 07:00 Alkaline Phosphatase 76 U/L (45-117) 07/29/18 07:00 Total Protein 7.2 g/dl (6.4-8.2) 07/29/18 07:00 Albumin 3.9 g/dl (3.4-5.0) 07/29/18 07:00 RPR Titer Nonreactive (NONREACTIVE) 07/29/18 07:00 Assessment: 07/29/18 14:23 withdrawal symptom Plan: continue detox
[2018-07-29] MEDS: THIAMINE HCL 100 MG TABLET (FP) PO SCH (22:00)
[2018-07-29] MEDS: MELATONIN 5 MG TABLETS PO PRN (22:00)
[2018-07-29] MEDS: QUEtiapine FUMARATE 100 MG TABLET (FP) PO SCH (22:00)
[2018-07-30] MEDS ORDERED: METHADONE HCL 40 MG DISPERSABLE TABLET ONE (05:18)
[2018-07-30] MEDS ORDERED: METHADONE HCL 10 MG TABLET ONE (05:18)
[2018-07-30] MEDS: METHADONE 80 MG, METHADONE 20 MG PO SCH (05:47)
[2018-07-30] MEDS: chlordiazePOXIDE HCL 25 MG CAPSULE PO SCH ×3 (05:48→17:12)
[2018-07-30] MEDS ORDERED: METHADONE HCL 10 MG TABLET PO SCH (06:00)
[2018-07-30] MEDS: NICOTINE 21 MG/24 HOURS TOPICAL PATCH TD SCH (10:09)
[2018-07-30] MEDS: PRENATAL VITAMINS W/ FOLIC ACID TABLET (FP) PO SCH (10:10)
[2018-07-30] MEDS: RANITIDINE HCL 150 MG TABLET (FP) PO SCH ×2 (10:10→22:13)
--- NOTE | 2018-07-30 16:40 | PN ---
S CIWA - CIWA Score Nausea/Vomitin-No Nausea/No Vomiting Muscle Tremors: 2 Anxiety: 0-No Anxiety, at Ease Agitation: 0-Normal Activity Paroxysmal Sweats: 3 Orientation: 0-Oriented Tacttile Disturbances: 0-None Auditory Disturbances: 0-None Visual Disturbances: 0-None Headache: 0-None Present CIWA-Ar Total Score: 5 BHS Progress Note (SOAP) Subjective: no complaints offered Objective: 07/30/18 16:37 In bed sleeping but arousable to verbal stimuli No acute distress noted Vital Signs - 24 hr 07/29/18 07/29/18 07/30/18 17:59 22:17 00:30 Temperature 97.9 F 98.1 F Pulse Rate 64 72 Respiratory 18 18 18 Rate Blood Pressure 138/73 144/89 07/30/18 07/30/18 07/30/18 06:00 09:33 13:29 Temperature 97.7 F 97.0 F L 98.3 F Pulse Rate 73 83 85 Respiratory 18 18 18 Rate Blood Pressure 139/80 120/78 122/80 bp readings noted Assessment: 07/30/18 16:39 withdrawal sx Plan: continue detox HCTZ 50mg ordered from hx in view of pt's fluctuating Bp readings
[2018-07-30] MEDS ORDERED: HYDROCHLOROTHIAZIDE 50 MG TABLET PO SCH (16:45)
[2018-07-30] MEDS: IBUPROFEN 400 MG TABLET (FP) PO PRN (18:57)
[2018-07-30] MEDS: QUEtiapine FUMARATE 100 MG TABLET (FP) PO SCH (22:13)
[2018-07-30] MEDS: THIAMINE HCL 100 MG TABLET (FP) PO SCH (22:13)
[2018-07-30] MEDS: chlordiazePOXIDE HCL 10 MG CAPSULE PO SCH (22:13)
[2018-07-30] MEDS ORDERED: chlordiazePOXIDE HCL 10 MG CAPSULE PO PRN (23:00)
[2018-07-31] MEDS ORDERED: METHADONE HCL 40 MG DISPERSABLE TABLET ONE (03:05)
[2018-07-31] MEDS ORDERED: METHADONE HCL 10 MG TABLET ONE (03:05)
[2018-07-31] MEDS: METHADONE 80 MG, METHADONE 20 MG PO SCH (06:04)
[2018-07-31] MEDS: chlordiazePOXIDE HCL 10 MG CAPSULE PO SCH ×4 (06:04→22:17)
[2018-07-31] MEDS: NICOTINE 21 MG/24 HOURS TOPICAL PATCH TD SCH (10:12)
[2018-07-31] MEDS: RANITIDINE HCL 150 MG TABLET (FP) PO SCH ×2 (10:12→22:17)
[2018-07-31] MEDS: PRENATAL VITAMINS W/ FOLIC ACID TABLET (FP) PO SCH (10:12)
[2018-07-31] MEDS: HYDROCHLOROTHIAZIDE 25 MG TABLET (FP) PO SCH (10:12)
--- NOTE | 2018-07-31 15:38 | PN ---
BHS Progress Note (SOAP) Subjective: Tremor, interrupted sleep Objective: 07/31/18 15:37 Last Vital Signs Temp Pulse Resp BP Pulse Ox 98.3 F 110 H 18 128/82 07/31/18 13:12 07/31/18 13:12 07/31/18 13:12 07/31/18 13:12 Laboratory Tests 07/29/18 07/29/18 07/29/18 07:00 07:00 07:00 WBC 5.7 RBC 4.47 Hgb 14.6 Hct 42.9 MCV 96.0 MCH 32.7 MCHC 34.0 RDW 16.5 H Plt Count 168 D MPV 9.0 D Sickle Cell Screen Negative Sodium 136 Potassium 3.6 Chloride 97 L Carbon Dioxide 32 Anion Gap 7 L BUN 9 Creatinine 0.7 Creat Clearance w eGFR 115.04 Random Glucose 90 Calcium 8.9 Total Bilirubin 0.9 AST 98 H ALT 78 H Alkaline Phosphatase 76 Total Protein 7.2 Albumin 3.9 RPR Titer Nonreactive Labs reviewed Assessment: 07/31/18 15:37 Withdrawal symptoms Plan: Continue detox Encouraged PO water hydration
[2018-07-31] MEDS: IBUPROFEN 400 MG TABLET (FP) PO PRN (17:19)
[2018-07-31] MEDS: QUEtiapine FUMARATE 100 MG TABLET (FP) PO SCH (22:17)
[2018-07-31] MEDS: THIAMINE HCL 100 MG TABLET (FP) PO SCH (22:17)
[2018-07-31] MEDS: MELATONIN 5 MG TABLETS PO PRN (22:19)
[2018-08-01] MEDS ORDERED: METHADONE HCL 40 MG DISPERSABLE TABLET ONE (02:48)
[2018-08-01] MEDS ORDERED: METHADONE HCL 10 MG TABLET ONE (02:49)
[2018-08-01] MEDS: METHADONE 80 MG, METHADONE 20 MG PO SCH (05:15)
[2018-08-01 06:48] VITALS: TEMP 97.9
[2018-08-01 09:43] VITALS: BP 111/86; PULSE 86
[2018-08-01] MEDS: HYDROCHLOROTHIAZIDE 25 MG TABLET (FP) PO SCH (10:08)
[2018-08-01] MEDS: chlordiazePOXIDE HCL 10 MG CAPSULE PO SCH (10:08)
[2018-08-01] MEDS: RANITIDINE HCL 150 MG TABLET (FP) PO SCH (10:08)
[2018-08-01] MEDS: PRENATAL VITAMINS W/ FOLIC ACID TABLET (FP) PO SCH (10:08)
[2018-08-01] MEDS: NICOTINE 21 MG/24 HOURS TOPICAL PATCH TD SCH (10:09)
--- NOTE | 2018-08-01 15:49 | DS ---
[facility] Detox Discharge Summary Admission Date: 07/28/18 Discharge Date: 08/01/18 - History Present History: Alcohol Dependence, Opioid Dependence, MMTP Additional Comments: PATIENT GOING TO [facility] ([place], [place]) FOR AFTERCARE. PATIENT WAS DISCHARGED FROM DETOX UNIT TO BE TAKEN OVER TO REHAB UNIT IN STABLE MEDICAL CONDITION. Pertinent Past History: HTN, G.E.R.D., Hypercholesterolemia, M.M.T.P., History of Depression, History of Bipolar Disorder, History of Schizophrenia, Right Knee Pain, Nicotine Dependence. - Physical Exam Results Vital Signs: Vital Signs Temperature 97.9 F 08/01/18 09:42 Pulse Rate 86 08/01/18 09:42 Respiratory Rate 18 08/01/18 09:42 Blood Pressure 111/86 08/01/18 09:42 O2 Sat by Pulse Oximetry (%) Pertinent Admission Physical Exam Findings: WITHDRAWAL SYMPTOMS. Laboratory Tests 07/29/18 07/29/18 07/29/18 07:00 07:00 07:00 WBC 5.7 RBC 4.47 Hgb 14.6 Hct 42.9 MCV 96.0 MCH 32.7 MCHC 34.0 RDW 16.5 H Plt Count 168 D MPV 9.0 D Sickle Cell Screen Negative Sodium 136 Potassium 3.6 Chloride 97 L Carbon Dioxide 32 Anion Gap 7 L BUN 9 Creatinine 0.7 Creat Clearance w eGFR 115.04 Random Glucose 90 Calcium 8.9 Total Bilirubin 0.9 AST 98 H ALT 78 H Alkaline Phosphatase 76 Total Protein 7.2 Albumin 3.9 RPR Titer Nonreactive LABS NOTED. - Treatment Hospital Course: Detox Protocol Followed, Detoxed Safely, Responded well, Discharged Condition Good, Rehab Referral Accepted Patient has Accepted a Rehab Referral to: [facility] ([place], [place]). - Medication Discharge Medications: Ambulatory Orders Hydrochlorothiazide [Hctz -] 50 mg PO DAILY 09/21/17 Quetiapine Fumarate [Seroquel -] 400 mg PO HS #30 tablet 09/22/17 hydrOXYzine PAMOATE [Vistaril -] 50 mg PO BID 07/28/18 Albuterol Sulfate Inhaler - [Ventolin Hfa Inhaler -] 2 inh PO PRN 08/01/18 Ranitidine HCl [Zantac] 150 mg PO BID 08/01/18 - Diagnosis (1) History of depression Status: Chronic (2) History of bipolar disorder Status: Chronic (3) History of schizophrenia Status: Suspected (4) Right knee pain Status: Acute Qualifiers: Chronicity: acute Qualified Code(s): M25.561 - Pain in right knee (5) Acid reflux Status: Chronic Qualifiers: Esophagitis presence: esophagitis presence not specified Qualified Code(s) : K21.9 - Gastro-esophageal reflux disease without esophagitis (6) Alcohol dependence with uncomplicated withdrawal Status: Acute (7) Nicotine dependence Status: Chronic Qualifiers: Nicotine product type: cigarettes Substance use status: uncomplicated Qualified Code(s): F17.210 - Nicotine dependence, cigarettes, uncomplicated (8) HTN (hypertension) Status: Chronic Qualifiers: Hypertension type: essential hypertension Qualified Code(s): I10 - Essential (primary) hypertension (9) Methadone maintenance therapy patient Status: Chronic (10) Hypercholesterolemia Status: Suspected (11) Substance induced mood disorder Status: Acute (12) Substance-induced sleep disorder Status: Acute - AMA Did Patient Leave Against Medical Advice: No
== END 2018-08-01 14:42 | disposition other institution (70) | DRG 773 ==
LOC: YASAS 13:28 → Y6N 18:04
PROVIDERS: ADMIT Surgery; ATTEND Surgery
PROC: HZ2ZZZZ Detoxification Services for Substance Abuse Treatment (ICD-10-PCS; principal; 2018-07-28)
DX: F10.230 Alcohol dependence with withdrawal, uncomplicated (principal); F11.20 Opioid dependence, uncomplicated; F17.223 Nicotine dependence, chewing tobacco, with withdrawal; F19.24 Other psychoactive substance dependence with psychoactive substance-induced mood disorder; F19.282 Other psychoactive substance dependence with psychoactive substance-induced sleep disorder; I10 Essential (primary) hypertension; K21.9 Gastro-esophageal reflux disease without esophagitis; E78.00 Pure hypercholesterolemia, unspecified; M25.561 Pain in right knee; Z86.59 Personal history of other mental and behavioral disorders
CPT/HCPCS: 36415; 73564-TC-RT-FY; 80053; 85027; 85660; 86593

== ENCOUNTER 2018-08-01 14:47 | Inpatient (IN) | payer OTHER ==
[2018-08-01] MEDS ORDERED: MAGNESIUM CITRATE 300 ML BOTTLE PO PRN (15:51)
[2018-08-01] MEDS ORDERED: LOPERAMIDE HCL 2 MG CAPSULE PO PRN (15:51)
[2018-08-01] MEDS ORDERED: IBUPROFEN 400 MG TABLET (FP) PO PRN (15:51)
[2018-08-01] MEDS ORDERED: NICOTINE POLACRILEX 2 MG GUM BUC PRN (15:51)
[2018-08-01] MEDS ORDERED: P-EPHED 60MG/TRIPROLIDI 2.5MG TABLET PO PRN (15:51)
[2018-08-01] MEDS ORDERED: MAG HYDROX/AL HYDROX/SIMETH 30 ML UNIT-DOSE CUP PO PRN (15:51)
[2018-08-01] MEDS ORDERED: MAGNESIUM HYDROX 2400MG/30ML ORAL SUSPENSION 30 ML CUP PO PRN (15:51)
[2018-08-01] MEDS ORDERED: ALBUTEROL SO4 8 GM HFA INHALER IH PRN (15:52)
--- NOTE | 2018-08-01 16:00 | HP ---
[facility] Rehab Assess/Revision - Admission History Admitted to Rehab from: [facility] Date of Admission to Rehab: 08/01/2018 - Vital signs Vital Signs: NOTED; STABLE. - Findings Detox History & Physical reviewed: Yes Concur with findings: Yes Comments/Additional Findings: PATIENT'S MEDICAL / MEDICATION HISTORY REVIEWED PRIOR TO DISCHARGE FROM DETOX UNIT. PATIENT WAS DISCHARGED FROM DETOX UNIT TO BE TAKEN OVER TO REHAB UNIT IN STABLE MEDICAL CONDITION. Inpatient Rehab Admission - Rehab Decision to Admit Inpatient rehab admission?: Yes - Initial Determination Are CD services needed?: Yes Free of communicable disease: Yes Not in need of hospitalization: Yes - Rehab Admission Criteria Previous failed treatment: Yes Poor recovery environment: No Comorbidities: Yes Lacks judgement: Yes Patient is meeting Inpatient Rehab admission criteria:: Yes
[2018-08-01] MEDS: MELATONIN 5 MG TABLETS PO PRN (21:56)
[2018-08-01] MEDS: RANITIDINE HCL 150 MG TABLET (FP) PO SCH (21:56)
[2018-08-01] MEDS: THIAMINE HCL 100 MG TABLET (FP) PO SCH (21:56)
[2018-08-02] MEDS ORDERED: METHADONE HCL 10 MG TABLET PO SCH (06:00)
[2018-08-02] MEDS ORDERED: METHADONE HCL 10 MG TABLET ONE (06:36)
[2018-08-02] MEDS: METHADONE 80 MG, METHADONE 20 MG PO SCH (06:36)
[2018-08-02] MEDS ORDERED: METHADONE HCL 40 MG DISPERSABLE TABLET ONE (06:36)
[2018-08-02] MEDS: PRENATAL VITAMINS W/ FOLIC ACID TABLET (FP) PO SCH (10:31)
[2018-08-02] MEDS: NICOTINE 21 MG/24 HOURS TOPICAL PATCH TD SCH (10:31)
[2018-08-02] MEDS: RANITIDINE HCL 150 MG TABLET (FP) PO SCH ×2 (10:31→21:43)
[2018-08-02] MEDS: HYDROCHLOROTHIAZIDE 25 MG TABLET (FP) PO SCH (10:31)
--- NOTE | 2018-08-02 14:31 | CONSULT ---
[facility] Psychiatric Consult - Data Date of interview: 08/02/18 Admission source: 6N Identifying data: Mr Mcdonough is a 62 years old Black male, father of 6 children, unemployed receiving SSI, domiciled seeking inpatient rehab treatment for alcohol and opioid Substance Abuse History: Reports history of alcohol and heroin use. Refer to addiction counselor's summary for further information Medical History: Significant for history of hypertension, dyslipidemia, GERD and history of alcohol-related seizue, pancreatitis and bilateral inguinal hernia repair. Patient is on methadone 100 mg/day([facility]). Smokes 10 cigarettes Psychiatric History: Patient is known to investigative writer from a previous admission in August 2015. History is consistent with previous one provided. Reports history of Paranoid Schizophrenia diagnosed at age 18 and has had multiple psychiatric hospitalizations to various facilities including [facility]( [facility], [facility]. Most recently in 2014 at [facility]. Denies history of suicidal attempt. Reports still seeing a therapist at [facility] in the [place], [place] and he is prescribed Zoloft 100 mg po daily, Seroquel 400 mg po HS. At present, reports feeling depressed and sleping poorly Physical/Sexual Abuse/Trauma History: Denies history of emotional, physical or sexual abuse as well as DV relationship Additional Comment: Reports history of 4 previous arrests including one felony conviction. Denies being on parole/probation Mental Status Exam - Mental Status Exam Alert and Oriented to: Time, Place, Person Cognitive Function: Fair Patient Appearance: Well Groomed Mood: Irritable Affect: Appropriate Patient Behavior: Cooperative Speech Pattern: Clear Voice Loudness: Normal Thought Process: Intact Thought Disorder: Not Present Hallucinations: Denies Suicidal Ideation: Denies Homicidal Ideation: Denies Insight/Judgement: Fair Sleep: Poorly Appetite: Good Muscle strength/Tone: Normal Gait/Station: Normal Psychiatric Findings - Problem List ([place] 1, 2,3) (1) Paranoid schizophrenia Current Visit: No Status: Chronic (2) Substance induced mood disorder Current Visit: Yes Status: Acute (3) Substance-induced sleep disorder Current Visit: Yes Status: Acute (4) Alcohol dependence Current Visit: Yes Status: Acute (5) Opioid dependence on agonist therapy Current Visit: No Status: Chronic (6) Nicotine dependence Current Visit: No Status: Chronic Qualifiers: Nicotine product type: cigarettes Substance use status: uncomplicated Qualified Code(s): F17.210 - Nicotine dependence, cigarettes, uncomplicated (7) Asthma Current Visit: No Status: Chronic Qualifiers: Asthma severity: mild Asthma persistence: intermittent Asthma complication type: uncomplicated Qualified Code(s): J45.20 - Mild intermittent asthma, uncomplicated (8) Acid reflux Current Visit: No Status: Chronic Qualifiers: Esophagitis presence: esophagitis presence not specified Qualified Code(s) : K21.9 - Gastro-esophageal reflux disease without esophagitis (9) HTN (hypertension) Current Visit: No Status: Chronic Qualifiers: Hypertension type: essential hypertension Qualified Code(s): I10 - Essential (primary) hypertension (10) Obesity (BMI 30.0-34.9) Current Visit: No Status: Chronic (11) Hypercholesterolemia Current Visit: No Status: Chronic - Initial Treatment Plan Initial Treatment Plan: 1) Continue Seroquel 100 mg po HS pending verification of patient prescripton by staff at [facility]. 2) Continue inpatient rehabilitation
[2018-08-02] MEDS: guaiFENesin 200 MG/10 ML 10 ML UNIT-DOSE CUPS PO PRN (19:02)
[2018-08-02] MEDS: THIAMINE HCL 100 MG TABLET (FP) PO SCH (21:43)
[2018-08-02] MEDS: MELATONIN 5 MG TABLETS PO PRN (21:44)
[2018-08-03] MEDS ORDERED: METHADONE HCL 10 MG TABLET ONE (04:33)
[2018-08-03] MEDS ORDERED: METHADONE HCL 40 MG DISPERSABLE TABLET ONE (04:33)
[2018-08-03] MEDS: METHADONE 80 MG, METHADONE 20 MG PO SCH (06:15)
[2018-08-03] MEDS: guaiFENesin 200 MG/10 ML 10 ML UNIT-DOSE CUPS PO PRN (07:28)
[2018-08-03] MEDS: HYDROCHLOROTHIAZIDE 25 MG TABLET (FP) PO SCH (10:46)
[2018-08-03] MEDS: RANITIDINE HCL 150 MG TABLET (FP) PO SCH ×2 (10:46→21:29)
[2018-08-03] MEDS: NICOTINE 21 MG/24 HOURS TOPICAL PATCH TD SCH (10:46)
[2018-08-03] MEDS: PRENATAL VITAMINS W/ FOLIC ACID TABLET (FP) PO SCH (10:46)
--- NOTE | 2018-08-03 13:51 | PN ---
[facility] Progress Note Note: Patient's OPD, [facility] in [place]([phone] was contacted regarding information on patient's medications. Talked to VICE PRESIDENT INVESTOR RELATIONS, Sheldon Godoy, patient provider, he told card writer hand that he last saw patient on 06/03/18 and prescribed him Zoloft 200 mg po daily, Seroquel 400 mg po HS, Buspar 10 mg po BID and Vistaril 50 mg po BID. Will resume patient medications
[2018-08-03] MEDS ORDERED: hydrOXYzine PAMOATE 50 MG CAPSULE (FP) PO PRN (13:53)
[2018-08-03] MEDS: SERTRALINE HCL 50 MG TABLET (FP) PO SCH (14:19)
[2018-08-03] MEDS: busPIRone HCL 10 MG TABLET (FP) PO SCH ×2 (14:19→21:29)
[2018-08-03] MEDS: THIAMINE HCL 100 MG TABLET (FP) PO SCH (21:29)
[2018-08-03] MEDS: QUEtiapine FUMARATE 400 MG TABLET PO SCH (21:29)
[2018-08-03] MEDS ORDERED: QUEtiapine FUMARATE 100 MG TABLET (FP) PO SCH (22:00)
[2018-08-04] MEDS ORDERED: METHADONE HCL 10 MG TABLET ONE (03:31)
[2018-08-04] MEDS ORDERED: METHADONE HCL 40 MG DISPERSABLE TABLET ONE (03:32)
[2018-08-04] MEDS: METHADONE 80 MG, METHADONE 20 MG PO SCH (06:12)
[2018-08-04] MEDS: NICOTINE 21 MG/24 HOURS TOPICAL PATCH TD SCH (10:05)
[2018-08-04] MEDS: RANITIDINE HCL 150 MG TABLET (FP) PO SCH ×2 (10:05→21:46)
[2018-08-04] MEDS: HYDROCHLOROTHIAZIDE 25 MG TABLET (FP) PO SCH (10:05)
[2018-08-04] MEDS: PRENATAL VITAMINS W/ FOLIC ACID TABLET (FP) PO SCH (10:05)
[2018-08-04] MEDS: SERTRALINE HCL 50 MG TABLET (FP) PO SCH (10:05)
[2018-08-04] MEDS: busPIRone HCL 10 MG TABLET (FP) PO SCH ×2 (10:05→21:47)
[2018-08-04] MEDS: THIAMINE HCL 100 MG TABLET (FP) PO SCH (21:46)
[2018-08-04] MEDS: QUEtiapine FUMARATE 400 MG TABLET PO SCH (21:47)
[2018-08-04] MEDS: MELATONIN 5 MG TABLETS PO PRN (21:48)
[2018-08-05] MEDS ORDERED: METHADONE HCL 10 MG TABLET ONE (03:59)
[2018-08-05] MEDS ORDERED: METHADONE HCL 40 MG DISPERSABLE TABLET ONE (03:59)
[2018-08-05] MEDS: ACETAMINOPHEN 325 MG TABLET (FP) PO PRN (05:57)
[2018-08-05] MEDS: METHADONE 80 MG, METHADONE 20 MG PO SCH (05:58)
[2018-08-05] MEDS ORDERED: ALBUTEROL SO4 2.5/IPRATROPIUM 0.5 INH SOL 3 ML VIAL.NEB. NEB ONE (09:24)
[2018-08-05] MEDS ORDERED: ALBUTEROL SO4 2.5/IPRATROPIUM 0.5 INH SOL 3 ML VIAL.NEB. NEB PRN (09:25)
[2018-08-05] MEDS ORDERED: AMOX TR/POT CLAV 875MG/125MG TABLETS (FP) PO ONE (09:28)
--- NOTE | 2018-08-05 09:36 | PN ---
[facility] Progress Note (SOAP) Subjective: NURSE INFORMED THIS MARINE RIGGER ABOUT PT WITH FEVER AND DIFFICULTY BREATHING WHILE IN BED AND A LOT OF CONGESTION YESTERDAY AND LAST NIGHT. PT WAS SEEN THIS MORNING IN DAY ROOM. OOB AMBULATING Objective: 08/05/18 09:32 Vital Signs (72 hours) 08/03/18 08/03/18 08/03/18 00:30 03:30 06:58 Temperature 98.2 F Pulse Rate 94 H Respiratory 18 18 18 Rate Blood Pressure 121/76 08/03/18 08/04/18 08/04/18 10:00 00:30 03:30 Temperature Pulse Rate 80 Respiratory 18 18 Rate Blood Pressure 112/64 08/04/18 08/05/18 08/05/18 07:26 03:30 06:35 Temperature 98.8 F 101.3 F H Pulse Rate 111 H 111 H Respiratory 18 18 18 Rate Blood Pressure 127/74 132/67 08/05/18 07:22 Temperature 100.4 F H Pulse Rate Respiratory Rate Blood Pressure CARDIAC S1 S2 LUNGS:BILATERAL EXPIRATORY RHONCHI EXTREMITIES:NO SWELLING OR REDNESS; PEDAL PULES PRESENT (+2) Assessment: 08/05/18 09:36 ACUTE BRONCHITIS HX ASTHMA R/O PNEUMONIA Plan: PLAN:CXR TODAY R/O PNEUMONIA DO CBC, CMP,UA TODAY AUGMENTIN 875 MG PO BID X 10 DAYS, FIRST DOSE NOW. RESULTS OF CXR PENDING
[2018-08-05] MEDS: RANITIDINE HCL 150 MG TABLET (FP) PO SCH ×2 (09:49→21:33)
[2018-08-05] MEDS: SERTRALINE HCL 50 MG TABLET (FP) PO SCH (09:49)
[2018-08-05] MEDS: PRENATAL VITAMINS W/ FOLIC ACID TABLET (FP) PO SCH (09:49)
[2018-08-05] MEDS: HYDROCHLOROTHIAZIDE 25 MG TABLET (FP) PO SCH (09:50)
[2018-08-05] MEDS: busPIRone HCL 10 MG TABLET (FP) PO SCH ×2 (09:50→21:33)
[2018-08-05] MEDS: NICOTINE 21 MG/24 HOURS TOPICAL PATCH TD SCH (10:12)
[2018-08-05 12:05] LABS: ALBUMIN 3.6 g/dl (3.4-5.0); ALK PHOS 63 U/L (45-117); ANION GAP 8 MMOL/L (8-16); BILIRUBIN,TOTAL 0.5 mg/dL (0.2-1); BLOOD UREA NITROGEN 13 mg/dL (7-18); CALCIUM 8.8 mg/dL (8.5-10.1); CHLORIDE 94 mmol/L (98-107); CO2 30 mmol/L (21-32); CREATININE 0.9 mg/dL (0.55-1.3); GLUCOSE,RANDOM 131 mg/dL (74-106); POTASSIUM 3.7 mmol/L (3.5-5.1); SGOT/AST 36 U/L (15-37); SGPT/ALT 56 U/L (13-61); SODIUM 131 mmol/L (136-145); TOT PROT 7.4 g/dl (6.4-8.2)
[2018-08-05 12:08] LABS: HEMATOCRIT 41.4 % (35.4-49); HEMOGLOBIN 13.5 GM/dL (11.7-16.9); MCH 30.9 pg (25.7-33.7); MCHC 32.5 g/dl (32.0-35.9); MEAN CELL VOLUME 95.1 fl (80-96); MEAN PLT VOLUME 9.1 fl (7.5-11.1); PLATELET COUNT 230 K/MM3 (134-434); RBC 4.35 M/mm3 (4.00-5.60); RDW 15.4 % (11.9-15.9); WHITE BLOOD COUNT 9.4 K/mm3 (4.0-10.0)
[2018-08-05] MEDS: ALBUTEROL SO4 2.5/IPRATROPIUM 0.5 INH SOL 3 ML VIAL.NEB. NEB SCH ×3 (13:13→21:34)
[2018-08-05] MEDS: AMOX TR/POT CLAV 875MG/125MG TABLETS (FP) PO SCH (17:08)
[2018-08-05 17:19] LABS: URINE APPEARANCE CLEAR; URINE BILIRUBIN NEGATIVE (NEGATIVE); URINE COLOR DK YELLOW; URINE GLUCOSE (UA) NEGATIVE (NEGATIVE); URINE KETONE NEGATIVE (NEGATIVE); URINE LEUK ESTERASE NEGATIVE (NEGATIVE); URINE NITRITE NEGATIVE (NEGATIVE); URINE PROTEIN NEGATIVE (NEGATIVE)
[2018-08-05] MEDS: THIAMINE HCL 100 MG TABLET (FP) PO SCH (21:33)
[2018-08-05] MEDS: QUEtiapine FUMARATE 400 MG TABLET PO SCH (21:33)
[2018-08-06] MEDS ORDERED: METHADONE HCL 10 MG TABLET ONE (03:58)
[2018-08-06] MEDS ORDERED: METHADONE HCL 40 MG DISPERSABLE TABLET ONE (03:58)
[2018-08-06] MEDS: METHADONE 80 MG, METHADONE 20 MG PO SCH (06:15)
[2018-08-06] MEDS: AMOX TR/POT CLAV 875MG/125MG TABLETS (FP) PO SCH ×2 (07:08→17:54)
[2018-08-06] MEDS: ALBUTEROL SO4 2.5/IPRATROPIUM 0.5 INH SOL 3 ML VIAL.NEB. NEB SCH ×4 (07:09→20:39)
[2018-08-06] MEDS: busPIRone HCL 10 MG TABLET (FP) PO SCH ×2 (10:02→21:21)
[2018-08-06] MEDS: PRENATAL VITAMINS W/ FOLIC ACID TABLET (FP) PO SCH (10:03)
[2018-08-06] MEDS: SERTRALINE HCL 50 MG TABLET (FP) PO SCH (10:03)
[2018-08-06] MEDS: RANITIDINE HCL 150 MG TABLET (FP) PO SCH ×2 (10:03→21:20)
[2018-08-06] MEDS: HYDROCHLOROTHIAZIDE 25 MG TABLET (FP) PO SCH (10:03)
[2018-08-06] MEDS: NICOTINE 21 MG/24 HOURS TOPICAL PATCH TD SCH (10:03)
[2018-08-06] MEDS: QUEtiapine FUMARATE 400 MG TABLET PO SCH (21:20)
[2018-08-06] MEDS: THIAMINE HCL 100 MG TABLET (FP) PO SCH (21:20)
[2018-08-06] MEDS: MELATONIN 5 MG TABLETS PO PRN (21:21)
[2018-08-07] MEDS ORDERED: METHADONE HCL 40 MG DISPERSABLE TABLET ONE (03:37)
[2018-08-07] MEDS ORDERED: METHADONE HCL 10 MG TABLET ONE (03:37)
[2018-08-07] MEDS: ACETAMINOPHEN 325 MG TABLET (FP) PO PRN (04:25)
[2018-08-07] MEDS: METHADONE 80 MG, METHADONE 20 MG PO SCH (06:18)
[2018-08-07] MEDS: AMOX TR/POT CLAV 875MG/125MG TABLETS (FP) PO SCH ×2 (07:01→18:07)
[2018-08-07] MEDS: ALBUTEROL SO4 2.5/IPRATROPIUM 0.5 INH SOL 3 ML VIAL.NEB. NEB SCH ×4 (08:11→20:13)
[2018-08-07] MEDS: NICOTINE 21 MG/24 HOURS TOPICAL PATCH TD SCH (10:09)
[2018-08-07] MEDS: RANITIDINE HCL 150 MG TABLET (FP) PO SCH ×2 (10:09→21:53)
[2018-08-07] MEDS: SERTRALINE HCL 50 MG TABLET (FP) PO SCH (10:09)
[2018-08-07] MEDS: busPIRone HCL 10 MG TABLET (FP) PO SCH ×2 (10:09→21:53)
[2018-08-07] MEDS: HYDROCHLOROTHIAZIDE 25 MG TABLET (FP) PO SCH (10:09)
[2018-08-07] MEDS: PRENATAL VITAMINS W/ FOLIC ACID TABLET (FP) PO SCH (10:10)
[2018-08-07] MEDS: QUEtiapine FUMARATE 400 MG TABLET PO SCH (21:53)
[2018-08-07] MEDS: THIAMINE HCL 100 MG TABLET (FP) PO SCH (21:53)
[2018-08-07] MEDS: guaiFENesin 200 MG/10 ML 10 ML UNIT-DOSE CUPS PO PRN (21:55)
[2018-08-08] MEDS ORDERED: METHADONE HCL 10 MG TABLET ONE (04:13)
[2018-08-08] MEDS ORDERED: METHADONE HCL 40 MG DISPERSABLE TABLET ONE (04:13)
[2018-08-08] MEDS: METHADONE 80 MG, METHADONE 20 MG PO SCH (06:42)
[2018-08-08] MEDS: AMOX TR/POT CLAV 875MG/125MG TABLETS (FP) PO SCH ×2 (07:29→16:51)
[2018-08-08] MEDS: guaiFENesin 200 MG/10 ML 10 ML UNIT-DOSE CUPS PO PRN (08:53)
[2018-08-08] MEDS: ALBUTEROL SO4 2.5/IPRATROPIUM 0.5 INH SOL 3 ML VIAL.NEB. NEB SCH ×4 (09:34→21:50)
[2018-08-08] MEDS: SERTRALINE HCL 50 MG TABLET (FP) PO SCH (10:47)
[2018-08-08] MEDS: HYDROCHLOROTHIAZIDE 25 MG TABLET (FP) PO SCH (10:47)
[2018-08-08] MEDS: busPIRone HCL 10 MG TABLET (FP) PO SCH ×2 (10:47→21:49)
[2018-08-08] MEDS: PRENATAL VITAMINS W/ FOLIC ACID TABLET (FP) PO SCH (10:47)
[2018-08-08] MEDS: NICOTINE 21 MG/24 HOURS TOPICAL PATCH TD SCH (10:48)
[2018-08-08] MEDS: RANITIDINE HCL 150 MG TABLET (FP) PO SCH ×2 (10:48→21:49)
[2018-08-08] MEDS: MENTHOL/PHENOL 1 EACH UD MM PRN (13:09)
--- NOTE | 2018-08-08 13:55 | PN ---
[facility] Progress Note Note: CXR RESULT: PROMINENT RADHA WITH SOME INCREASED MARKINGS AT THE LEFT BASE SUGGESTIVE OF POSSIBLE EARLY INFILTRATE. AFEBRILE. Vital Signs (72 hours) 08/06/18 08/06/18 08/06/18 00:30 03:30 06:55 Temperature 98.1 F Pulse Rate 91 H Respiratory 18 18 20 Rate Blood Pressure 119/68 O2 Sat by Pulse Oximetry (%) 08/06/18 08/06/18 08/07/18 08:58 13:13 00:30 Temperature Pulse Rate 91 H 85 Respiratory 18 Rate Blood Pressure 105/66 O2 Sat by Pulse 89 L Oximetry (%) 08/07/18 08/07/18 08/07/18 03:30 06:44 08:50 Temperature 98.3 F Pulse Rate 86 85 Respiratory 18 18 Rate Blood Pressure 106/58 L 101/67 O2 Sat by Pulse Oximetry (%) 08/07/18 08/08/18 08/08/18 11:37 00:30 03:30 Temperature Pulse Rate 84 Respiratory 18 18 Rate Blood Pressure O2 Sat by Pulse 89 L Oximetry (%) 08/08/18 08/08/18 07:12 10:04 Temperature 97.9 F Pulse Rate 80 84 Respiratory 18 Rate Blood Pressure 122/74 O2 Sat by Pulse Oximetry (%) Laboratory Tests 08/05/18 08/05/18 08/05/18 10:00 10:25 11:00 WBC 9.4 RBC 4.35 Hgb 13.5 Hct 41.4 MCV 95.1 MCH 30.9 MCHC 32.5 RDW 15.4 Plt Count 230 D MPV 9.1 Sodium 131 L Potassium 3.7 Chloride 94 L Carbon Dioxide 30 Anion Gap 8 BUN 13 Creatinine 0.9 Creat Clearance w eGFR 86.08 Random Glucose 131 H Calcium 8.8 Total Bilirubin 0.5 AST 36 ALT 56 Alkaline Phosphatase 63 Total Protein 7.4 Albumin 3.6 Urine Color Dk yellow Urine Appearance Clear Urine pH 5.0 Ur Specific [place] 1.018 Urine Protein Negative Urine Glucose (UA) Negative Urine Ketones Negative Urine Blood Negative Urine Nitrite Negative Urine Bilirubin Negative Urine Urobilinogen 1.0 Ur Leukocyte Esterase Negative A:LEFT BASE INFILTRATE PLAN:CONTINUE WITH AUGMENTIN 875 MG PO BID DIRECTED AND PRESENT RESPIRATORY CARE.
[2018-08-08] MEDS: QUEtiapine FUMARATE 400 MG TABLET PO SCH (21:49)
[2018-08-08] MEDS: THIAMINE HCL 100 MG TABLET (FP) PO SCH (21:49)
[2018-08-09] MEDS: guaiFENesin 200 MG/10 ML 10 ML UNIT-DOSE CUPS PO PRN ×3 (01:13→21:50)
[2018-08-09] MEDS ORDERED: METHADONE HCL 10 MG TABLET ONE (03:19)
[2018-08-09] MEDS ORDERED: METHADONE HCL 40 MG DISPERSABLE TABLET ONE (03:19)
[2018-08-09] MEDS: METHADONE 80 MG, METHADONE 20 MG PO SCH (06:34)
[2018-08-09] MEDS: MENTHOL/PHENOL 1 EACH UD MM PRN (06:37)
[2018-08-09] MEDS: ALBUTEROL SO4 2.5/IPRATROPIUM 0.5 INH SOL 3 ML VIAL.NEB. NEB SCH ×4 (07:15→21:19)
[2018-08-09] MEDS: AMOX TR/POT CLAV 875MG/125MG TABLETS (FP) PO SCH ×2 (07:15→17:33)
[2018-08-09] MEDS: busPIRone HCL 10 MG TABLET (FP) PO SCH ×2 (10:41→21:49)
[2018-08-09] MEDS: SERTRALINE HCL 50 MG TABLET (FP) PO SCH (10:41)
[2018-08-09] MEDS: RANITIDINE HCL 150 MG TABLET (FP) PO SCH ×2 (10:41→21:49)
[2018-08-09] MEDS: PRENATAL VITAMINS W/ FOLIC ACID TABLET (FP) PO SCH (10:41)
[2018-08-09] MEDS: HYDROCHLOROTHIAZIDE 25 MG TABLET (FP) PO SCH (10:41)
[2018-08-09] MEDS: NICOTINE 21 MG/24 HOURS TOPICAL PATCH TD SCH (10:42)
[2018-08-09] MEDS: QUEtiapine FUMARATE 400 MG TABLET PO SCH (21:49)
[2018-08-09] MEDS: THIAMINE HCL 100 MG TABLET (FP) PO SCH (21:49)
[2018-08-09] MEDS: MELATONIN 5 MG TABLETS PO PRN (21:50)
[2018-08-10] MEDS: MENTHOL/PHENOL 1 EACH UD MM PRN ×3 (01:53→21:34)
[2018-08-10] MEDS ORDERED: METHADONE HCL 40 MG DISPERSABLE TABLET ONE (04:21)
[2018-08-10] MEDS ORDERED: METHADONE HCL 10 MG TABLET ONE (04:21)
[2018-08-10] MEDS: METHADONE 80 MG, METHADONE 20 MG PO SCH (06:19)
[2018-08-10] MEDS: AMOX TR/POT CLAV 875MG/125MG TABLETS (FP) PO SCH ×2 (07:10→16:50)
[2018-08-10] MEDS: ALBUTEROL SO4 2.5/IPRATROPIUM 0.5 INH SOL 3 ML VIAL.NEB. NEB SCH ×4 (08:05→21:32)
[2018-08-10] MEDS: busPIRone HCL 10 MG TABLET (FP) PO SCH ×2 (10:30→21:32)
[2018-08-10] MEDS: HYDROCHLOROTHIAZIDE 25 MG TABLET (FP) PO SCH (10:30)
[2018-08-10] MEDS: guaiFENesin 200 MG/10 ML 10 ML UNIT-DOSE CUPS PO PRN ×2 (10:30→21:34)
[2018-08-10] MEDS: NICOTINE 21 MG/24 HOURS TOPICAL PATCH TD SCH (10:30)
[2018-08-10] MEDS: RANITIDINE HCL 150 MG TABLET (FP) PO SCH ×2 (10:30→21:32)
[2018-08-10] MEDS: PRENATAL VITAMINS W/ FOLIC ACID TABLET (FP) PO SCH (10:30)
[2018-08-10] MEDS: SERTRALINE HCL 50 MG TABLET (FP) PO SCH (10:30)
--- NOTE | 2018-08-10 16:10 | PN ---
[facility] Progress Note Note: PT REPORTS "I'M FEELING MUCH BETTER". PT IS COUGHING LESS THAN BEFORE AND PRODUCTIVE. PT IS OOB AMBULATING WITH STEADY GAIT WITH ASSISTANCE OF A CANE. DENIES ANY DISCOMFORT OR SOB. ALERT O X 3. Home Medications Medication Instructions Recorded Quetiapine Fumarate [Seroquel -] 400 mg PO HS #30 tablet 09/22/17 hydrOXYzine PAMOATE [Vistaril -] 50 mg PO BID 07/28/18 Albuterol Sulfate Inhaler - 2 inh PO PRN #1 inhaler 08/10/18 [Ventolin HFA Inhaler -] Amox-Tr/K Cl [Augmentin 875-125mg 1 tab PO BID@0800,1730 #5 tablet 08/10/18 Tablet -] Hydrochlorothiazide [Hctz -] 25 mg PO DAILY #30 tablet 08/10/18 Ranitidine HCl [Zantac] 150 mg PO BID #30 tablet 08/10/18 Vital Signs - 24 hr 08/10/18 08/10/18 08/10/18 00:30 03:30 07:06 Temperature 97.7 F Pulse Rate 67 Respiratory 18 18 18 Rate Blood Pressure 123/67 Laboratory Tests 08/05/18 08/05/18 08/05/18 10:00 10:25 11:00 WBC 9.4 RBC 4.35 Hgb 13.5 Hct 41.4 MCV 95.1 MCH 30.9 MCHC 32.5 RDW 15.4 Plt Count 230 D MPV 9.1 Sodium 131 L Potassium 3.7 Chloride 94 L Carbon Dioxide 30 Anion Gap 8 BUN 13 Creatinine 0.9 Creat Clearance w eGFR 86.08 Random Glucose 131 H Calcium 8.8 Total Bilirubin 0.5 AST 36 ALT 56 Alkaline Phosphatase 63 Total Protein 7.4 Albumin 3.6 Urine Color Dk yellow Urine Appearance Clear Urine pH 5.0 Ur Specific [place] 1.018 Urine Protein Negative Urine Glucose (UA) Negative Urine Ketones Negative Urine Blood Negative Urine Nitrite Negative Urine Bilirubin Negative Urine Urobilinogen 1.0 Ur Leukocyte Esterase Negative LUNGS:CLEAR TO A/P;NO WHEEZING, RHONCHI OR CRACKLES. PLAN:PT MIGHT BE SCHEDULED TO DISCHARGE ON Wednesday08/12/18. HOME MEDS AND AUGMENTIN ELECTRONICALLY SENT TO PREFERRED PHARMACY FOR PORTFOLIO ACCOUNTANT AFTER DISCHARGE.
[2018-08-10] MEDS: QUEtiapine FUMARATE 400 MG TABLET PO SCH (21:32)
[2018-08-10] MEDS: THIAMINE HCL 100 MG TABLET (FP) PO SCH (21:32)
[2018-08-11] MEDS ORDERED: METHADONE HCL 40 MG DISPERSABLE TABLET ONE (03:33)
[2018-08-11] MEDS ORDERED: METHADONE HCL 10 MG TABLET ONE (03:33)
[2018-08-11] MEDS: METHADONE 80 MG, METHADONE 20 MG PO SCH (06:29)
[2018-08-11] MEDS: AMOX TR/POT CLAV 875MG/125MG TABLETS (FP) PO SCH ×2 (08:01→17:50)
[2018-08-11] MEDS: ALBUTEROL SO4 2.5/IPRATROPIUM 0.5 INH SOL 3 ML VIAL.NEB. NEB SCH ×4 (08:30→21:43)
[2018-08-11] MEDS: RANITIDINE HCL 150 MG TABLET (FP) PO SCH ×2 (10:14→21:42)
[2018-08-11] MEDS: SERTRALINE HCL 50 MG TABLET (FP) PO SCH (10:14)
[2018-08-11] MEDS: busPIRone HCL 10 MG TABLET (FP) PO SCH ×2 (10:14→21:42)
[2018-08-11] MEDS: PRENATAL VITAMINS W/ FOLIC ACID TABLET (FP) PO SCH (10:14)
[2018-08-11] MEDS: HYDROCHLOROTHIAZIDE 25 MG TABLET (FP) PO SCH (10:14)
[2018-08-11] MEDS: NICOTINE 21 MG/24 HOURS TOPICAL PATCH TD SCH (10:15)
[2018-08-11] MEDS: MELATONIN 5 MG TABLETS PO PRN (21:42)
[2018-08-11] MEDS: THIAMINE HCL 100 MG TABLET (FP) PO SCH (21:42)
[2018-08-11] MEDS: QUEtiapine FUMARATE 400 MG TABLET PO SCH (21:42)
[2018-08-12] MEDS ORDERED: METHADONE HCL 40 MG DISPERSABLE TABLET ONE (05:57)
[2018-08-12] MEDS ORDERED: METHADONE HCL 10 MG TABLET ONE (05:57)
[2018-08-12] MEDS: METHADONE 80 MG, METHADONE 20 MG PO SCH (06:11)
[2018-08-12 07:05] VITALS: BP 109/75; PULSE 77; TEMP 97.8
[2018-08-12] MEDS: AMOX TR/POT CLAV 875MG/125MG TABLETS (FP) PO SCH (07:51)
[2018-08-12] MEDS: ALBUTEROL SO4 2.5/IPRATROPIUM 0.5 INH SOL 3 ML VIAL.NEB. NEB SCH (07:51)
[2018-08-12] MEDS: HYDROCHLOROTHIAZIDE 25 MG TABLET (FP) PO SCH (10:02)
[2018-08-12] MEDS: SERTRALINE HCL 50 MG TABLET (FP) PO SCH (10:02)
[2018-08-12] MEDS: RANITIDINE HCL 150 MG TABLET (FP) PO SCH (10:02)
[2018-08-12] MEDS: NICOTINE 21 MG/24 HOURS TOPICAL PATCH TD SCH (10:02)
[2018-08-12] MEDS: busPIRone HCL 10 MG TABLET (FP) PO SCH (10:02)
[2018-08-12] MEDS: PRENATAL VITAMINS W/ FOLIC ACID TABLET (FP) PO SCH (10:02)
--- NOTE | 2018-08-12 12:37 | PN ---
[facility] Progress Note Note: REHAB DISCHARGE NOTE: PATIENT COMPLETED REHAB TODAY AND DISCHARGED TO [facility]. AFTERCARE ARRANGED FOR HEALTH HOMES AT [facility]. PATIENT DID NOT WAIT TO SEE PROVIDER PRIOR TO DISCHARGE. DISCHARGE INSTRUCTIONS PROVIDED BY NURSING STAFF. Laboratory Tests 08/05/18 08/05/18 08/05/18 10:00 10:25 11:00 WBC 9.4 RBC 4.35 Hgb 13.5 Hct 41.4 MCV 95.1 MCH 30.9 MCHC 32.5 RDW 15.4 Plt Count 230 D MPV 9.1 Sodium 131 L Potassium 3.7 Chloride 94 L Carbon Dioxide 30 Anion Gap 8 BUN 13 Creatinine 0.9 Creat Clearance w eGFR 86.08 Random Glucose 131 H Calcium 8.8 Total Bilirubin 0.5 AST 36 ALT 56 Alkaline Phosphatase 63 Total Protein 7.4 Albumin 3.6 Urine Color Dk yellow Urine Appearance Clear Urine pH 5.0 Ur Specific [place] 1.018 Urine Protein Negative Urine Glucose (UA) Negative Urine Ketones Negative Urine Blood Negative Urine Nitrite Negative Urine Bilirubin Negative Urine Urobilinogen 1.0 Ur Leukocyte Esterase Negative Vital Signs Temperature 97.8 F 08/12/18 07:05 Pulse Rate 77 08/12/18 07:05 Respiratory Rate 20 08/12/18 07:05 Blood Pressure 109/75 08/12/18 07:05 Home Medications Medication Instructions Recorded Quetiapine Fumarate [Seroquel -] 400 mg PO HS #30 tablet 09/22/17 hydrOXYzine PAMOATE [Vistaril -] 50 mg PO BID 07/28/18 Albuterol Sulfate Inhaler - 2 inh PO PRN #1 inhaler 08/10/18 [Ventolin HFA Inhaler -] Amox-Tr/K Cl [Augmentin 875-125mg 1 tab PO BID@0800,1730 #5 tablet 08/10/18 Tablet -] Hydrochlorothiazide [Hctz -] 25 mg PO DAILY #30 tablet 08/10/18 Ranitidine HCl [Zantac] 150 mg PO BID #30 tablet 08/10/18
== END 2018-08-12 10:20 | disposition home or self-care (01) | DRG 772 ==
LOC: YASAS 14:47 → Y5N 14:48
PROVIDERS: ADMIT Neuromusculoskeletal Medicine & OMM; ATTEND Neuromusculoskeletal Medicine & OMM
PROC: HZ42ZZZ Group Counseling for Substance Abuse Treatment, Cognitive-Behavioral (ICD-10-PCS; principal; 2018-08-01)
DX: F10.20 Alcohol dependence, uncomplicated (principal); F11.20 Opioid dependence, uncomplicated; F17.210 Nicotine dependence, cigarettes, uncomplicated; F20.0 Paranoid schizophrenia; F19.282 Other psychoactive substance dependence with psychoactive substance-induced sleep disorder; F19.24 Other psychoactive substance dependence with psychoactive substance-induced mood disorder; I10 Essential (primary) hypertension; J20.9 Acute bronchitis, unspecified; E78.00 Pure hypercholesterolemia, unspecified; K21.9 Gastro-esophageal reflux disease without esophagitis; E66.9 Obesity, unspecified; Z68.35 Body mass index [BMI] 35.0-35.9, adult
CPT/HCPCS: 36415; 71046-TC-FY; 80053; 81003; 85027; 94640

== ENCOUNTER 2019-03-06 13:25 | Inpatient (IN) | payer OTHER ==
--- NOTE | 2019-03-06 14:33 | PDOC ---
History of Present Illness - General Chief Complaint: Pain, Acute Stated Complaint: ABD PAIN Time Seen by Provider: 03/06/19 14:01 - History of Present Illness Initial Comments: 03/06/19 14:41 63M sent from [facility] for evaluation of new hernia and abdominal pain for the past 2 weeks. Worsening abdominal pain over the past 2 week due to hernia. As per [facility] :"PMH of alcohol dependence with withdrawals, heroin dependence on MAT on methadone 100mg daily was on higher dose in the past. He drinks 1 pint of vodka daily, blacked out day before yesterday, last drank at 5:00Am this morning. He has has withdrawal seizures 2 days ago. He is still using heroin 2 bags of heroin intranasally but refuses to increase the dose of methadone. He smokes cigarettes less than 1 ppd for many years, smoked this morning. He denies other substances of abuse but occasionally smokes marijuana" PMH: Abdominal hernia, HTN, HLD, Asthma, GERD Psurg: Right and LEft inguinal herniorrhaphies in 1974 and 1977 Past History - Past Medical History Allergies/Adverse Reactions: Allergies Allergy/AdvReac Type Severity Reaction Status Date / Time No Known Allergies Allergy Verified 03/06/19 13:41 Home Medications: Ambulatory Orders Quetiapine Fumarate [Seroquel -] 400 mg PO HS #30 tablet 09/22/17 Albuterol Sulfate Inhaler - [Ventolin HFA Inhaler -] 2 inh NEB PRN 03/06/19 Hydrochlorothiazide [Hctz -] 25 mg PO BID 03/06/19 Anemia: No Asthma: Yes Cancer: No Cardiac Disorders: No CVA: No COPD: No CHF: No Dementia: No Diabetes: No GI Disorders: Yes (Acid reflux.) Disorders: No HTN: Yes (Takes HCTZ.) Hypercholesterolemia: Yes (No Meds.) Kidney Stones: No Liver Disease: No Seizures: No Thyroid Disease: No - Surgical History Abdominal Surgery: No Appendectomy: No Cardiac Surgery: No Cholecystectomy: No Lung Surgery: No Neurologic Surgery: No Orthopedic Surgery: No - Reproductive History Testicular Surgery: No - Psycho Social/Smoking Cessation Hx Smoking History: Current every day smoker Have you smoked in the past 12 months: Yes Number of Cigarettes Smoked Daily: 30 Cigars Per Day: 0 Information on smoking cessation initiated: No 'Breaking Loose' booklet given: 03/06/19 Hx Alcohol Use: Yes Drug/Substance Use Hx: Yes Substance Use Type: Alcohol, Heroin, Prescribed (M.M.T.P. Methadone, 100 mg, Verification Pending.) Hx Substance Use Treatment: Yes (Previous Detox/Rehab at [facility] (Last: 09/24, Completed).) Abd/GI Specific PMHX - Complaint Specific PMHX Hepatitis: No Pancreatitis: No Review of Systems - Review of Systems Able to Perform ROS?: No (intoxicated.) *Physical Exam - Vital Signs Last Vital Signs Temp Pulse Resp BP Pulse Ox 97.8 F 84 18 136/84 99 03/06/19 13:44 03/06/19 13:44 03/06/19 13:44 03/06/19 13:44 03/06/19 13:44 - Physical Exam General Appearance: Yes: Intoxicated HEENT: positive: EOMI, STACEY, Normal ENT Inspection Respiratory/Chest: positive: Lungs Clear, Normal Breath Sounds. negative: Chest Tender, Respiratory Distress Cardiovascular: positive: Regular Rhythm, Regular Rate, S1, S2 Gastrointestinal/Abdominal: positive: Normal Bowel Sounds, Tender ( periumbilical. Bulge present. ), Protuberent, Hernia (umbilical) Musculoskeletal: positive: Normal Inspection. negative: CVA Tenderness Extremity: positive: Normal Capillary Refill, Normal Inspection, Normal Range of Motion Neurologic: positive: Fully Oriented, Alert, Normal Mood/Affect, Normal Response , Motor Strength 5/5 ED Treatment Course - LABORATORY CBC & Chemistry Diagram: 03/06/19 15:00 03/06/19 15:00 Medical Decision Making - Medical Decision Making 03/06/19 18:57 63M sent from [facility] for evaluation of umbilical hernia for the past 2 weeks. Presurgery labs ordered. Surgery consyult by Dr. Plunkett who came to evaluate the patient. Was able to reduce it temporarily. Lactate 2.4 Ct abdomen read: approximately 6 x 5 x 3 cm. Mild linear soft tissue stranding is seen within the herniated fat. No evidence of pneumoperitoneum, free intraperitoneal fluid, abscess or bowel obstruction. There is possible mild concentric fat accumulation along the length of the colon (aside from the rectum) - ? history of colitis. As per Dr. lPunkett, no urgent surgery needed. Will repeat lactate and admit, 03/06/19 19:[address] Mojica who asked for Dr. Tsang/hospitalist to take the patient. 03/06/19 20:47 EKG: Normal sinus rhythm, septal infarct age undetermined. New Q waves seen compared to old EKG Will check trop and send chest xray to r/o chf As patient was starting to withdraw with worsening tongue fasciculations, gave 50 of librium. Discharge - Discharge Information Problems reviewed: Yes Clinical Impression/Diagnosis: Umbilical hernia Qualifiers: Obstruction and gangrene presence: without obstruction or gangrene Qualified Code(s): K42.9 - Umbilical hernia without obstruction or gangrene - Admission Yes - Follow up/Referral - Patient Discharge Instructions - Post Discharge Activity
--- NOTE | 2019-03-06 14:59 | CONSULT ---
Consult Consult Specialty:: General Surgery Reason for Consultation:: abdominal pain and umbilical hernia - History of Present Illness Chief Complaint: abdominal pain History of Present Illness: 63yo male PMH HTN, obesity, HLD, EtOH abuse sent here today from [facility] for a pain around his abdominal hernia. Patient states he has had an abdominal hernia in the past has been intermittently causing pain denies any nausea or vomiting states he drinks vodka daily he blacked out yesterday when he woke he presented to [facility] for detox. Patient states he is having significant pain around the periumbilical area but denies any nausea or vomiting states that he does take medications for his hypertension but cannot remember their names. We were called to assess. - History Source History Provided By: Patient, Medical Record Limitations to Obtaining History: Intoxication - Past Medical History Cardio/Vascular: Yes: HTN, Hyperlipdemia Pulmonary: Yes: Asthma Gastrointestinal: Yes: GERD - Alcohol/Substance Use Hx Alcohol Use: Yes - Smoking History Smoking history: Current every day smoker Have you smoked in the past 12 months: Yes Aproximately how many cigarettes per day: 30 - Social History Place of : [facility] History of Recent Travel: No Home Medications - Allergies Allergies/Adverse Reactions: Allergies Allergy/AdvReac Type Severity Reaction Status Date / Time No Known Allergies Allergy Verified 03/06/19 13:41 - Home Medications Home Medications: Ambulatory Orders Quetiapine Fumarate [Seroquel -] 400 mg PO HS #30 tablet 09/22/17 Albuterol Sulfate Inhaler - [Ventolin HFA Inhaler -] 2 inh NEB PRN 03/06/19 Hydrochlorothiazide [Hctz -] 25 mg PO BID 03/06/19 Family Medical History Family History: Denies Review of Systems - Review of Systems Constitutional: denies: Chills, Lethargy Eyes: denies: Blind Spots, Recent Change in Vision HENT: denies: Difficult Swallowing, Throat Pain Neck: denies: Decreased ROM, Pain on Movement Cardiovascular: denies: Chest Pain, Palpitations Respiratory: denies: Cough, SOB Gastrointestinal: reports: Abdominal Pain, Bloating, Vomiting Genitourinary: denies: Discharge, Dysuria Breasts: reports: No Symptoms Reported. denies: Pain Musculoskeletal: denies: Crepitus, Muscle Pain, Muscle Cramps Integumentary: denies: Lesions, Pallor, Rash Neurological: denies: Syncope, Tremors Endocrine: denies: Unexplained Weight Gain, Unexplained Weight Loss Hematology/Lymphatic: denies: Easily Bruised, Excessive Bleeding Psychiatric: denies: Anxiety, Depression Physical Exam Vital Signs: Vital Signs Temperature 97.8 F 03/06/19 13:44 Pulse Rate 84 03/06/19 13:44 Respiratory Rate 18 03/06/19 13:44 Blood Pressure 136/84 03/06/19 13:44 O2 Sat by Pulse Oximetry (%) 99 03/06/19 13:44 Constitutional: Yes: Well Nourished, No Distress, Calm, Obese Eyes: Yes: Conjunctiva Clear, EOM Intact HENT: Yes: Atraumatic, Normocephalic Neck: Yes: Supple, Trachea Midline Cardiovascular: Yes: Regular Rate and Rhythm, S1, S2 Respiratory: Yes: Regular, CTA Bilaterally Gastrointestinal: Yes: Normal Bowel Sounds, Soft, Abdomen, Obese, Hernia ( infraumbilical hernia defect 2cm, reducible), Tenderness (tender on resduction of the loops,) ...Rectal Exam: Yes: Deferred Renal/: No: CVA Tenderness - Left, CVA Tenderness - Right Breast(s): No: Mass, Skin Changes Musculoskeletal: No: Muscle Pain, Muscle Weakness Extremities: No: Cool, Cyanosis Edema: No Peripheral Pulses WNL: Yes Neurological: Yes: Alert, Oriented Psychiatric: Yes: Alert, Oriented Imaging - Results Cat Scan: Report Reviewed, Image Reviewed Problem List - Problems (1) Umbilical hernia Assessment/Plan: 63yo male MMP including etOH abuse presents with reducible umbilical hernia chronically incarcerated only fat containg per CT scan. No need for acute surgical intervention. He can return to rehab for treatment. Diet as tolerated IVF hydration, LA 2.6 adequate analgesia labs for evaluation of liver function and ascites [marino carter 7 (marino B) & MELD 6] He can return for elective repair when discharged from rehab Thank you for the opportunity to participate in the care of this patient. Problems reviewed: Yes Code(s): K42.9 - UMBILICAL HERNIA WITHOUT OBSTRUCTION OR GANGRENE Qualifiers: Obstruction and gangrene presence: without obstruction or gangrene Qualified Code(s): K42.9 - Umbilical hernia without obstruction or gangrene (2) Alcohol dependence with uncomplicated withdrawal Problems reviewed: Yes Code(s): F10.230 - ALCOHOL DEPENDENCE WITH WITHDRAWAL, UNCOMPLICATED (3) HTN (hypertension) Problems reviewed: Yes Code(s): I10 - ESSENTIAL (PRIMARY) HYPERTENSION Qualifiers: (4) Hypercholesterolemia Problems reviewed: Yes Code(s): E78.00 - PURE HYPERCHOLESTEROLEMIA, UNSPECIFIED (5) Obesity (BMI 30.0-34.9) Problems reviewed: Yes Code(s): E66.9 - OBESITY, UNSPECIFIED
[2019-03-06 15:47] LABS: BASO % 0.5 % (0-2.0); EOS % 2.9 % (0-4.5); HEMATOCRIT 46.4 % (35.4-49); HEMOGLOBIN 15.3 GM/dL (11.7-16.9); LYMPH % 37.4 % (8-40); MCH 33.2 pg (25.7-33.7); MCHC 32.9 g/dl (32.0-35.9); MEAN CELL VOLUME 100.9 fl (80-96); MEAN PLT VOLUME 9.2 fl (7.5-11.1); MONO % 5.4 % (3.8-10.2); NEUT % 53.8 % (42.8-82.8); PLATELET COUNT 213 K/MM3 (134-434); RDW 13.1 % (11.9-15.9); WHITE BLOOD COUNT 6.9 K/mm3 (4.0-10.0)
--- NOTE | 2019-03-06 15:55 | PDOC ---
Attending Attestation - Resident Resident Name: Ashutosh Camp - ED Attending Attestation I have performed the following: I have examined & evaluated the patient, The case was reviewed & discussed with the resident, I agree w/resident's findings & plan, Exceptions are as noted - HPI HPI: 03/06/19 15:53 63-year-old male history of hypertension hyperlipidemia EtOH abuse sent here today from [facility] for a pain around his abdominal hernia. Patient states he has had an abdominal hernia in the past has been intermittently causing pain denies any nausea or vomiting states he drinks vodka daily he blacked out yesterday when he woke he presented to [facility] for detox. Patient states he is having significant pain around the periumbilical area but denies any nausea or vomiting states that he does take medications for his hypertension but cannot remember their names - Physicial Exam PE: 03/06/19 15:54 Awake alert no acute distress lungs are clear bilaterally heart is regular with any murmurs rubs or gallops abdomen is soft there is noted to be a umbilical hernia which is tender to palpation nonreducible by my exam extremities are warm well perfused neurologically the patient is awake alert - Medical Decision Making 03/06/19 15:54 63-year-old male history of EtOH abuse hypertension hyperlipidemia with a potentially incarcerated abdominal umbilical hernia. Plan surgery consult CT abdomen pelvis labs including tox levels reassess Patient is a very difficult historian unable to answer various questions and somewhat uncooperative with my physical exam patient was evaluated Dr. Loaiza in the ED. Recommended CT abdomen pelvis tox levels are pending 03/06/19 18:50 pt with fat containing umbilical hernia on CT post reduction at bedside by dr waggoner. told to admit med/ surg. no emergenct surgical intervention necessary currently as pt still intoxicated. will reassess in hospital. admit to m/s/
[2019-03-06] MEDS ORDERED: LACTATED RINGERS SOLUTION 1000 ML INFUS.BAG IV ONE (15:57)
[2019-03-06 16:04] LABS: ACTIVATED PTT 36.8 SECONDS (25.2-36.5)
[2019-03-06 16:14] LABS: INR 0.99 (0.83-1.09); PROTHROMBIN TIME (PATIENT) 11.7 SEC (9.7-13.0)
[2019-03-06 16:15] LABS: ALBUMIN 4.1 g/dl (3.4-5.0); BILIRUBIN,TOTAL 0.3 mg/dL (0.2-1); BLOOD UREA NITROGEN 9.7 mg/dL (7-18); CALCIUM 8.9 mg/dL (8.5-10.1); CREATININE 0.8 mg/dL (0.55-1.3); TOT PROT 7.5 g/dl (6.4-8.2)
[2019-03-06] MEDS ORDERED: LACTATED RINGERS SOLUTION 1,000 ML/1,000 ML INFUS.BAG IV STA (17:28)
[2019-03-06] MEDS ORDERED: chlordiazePOXIDE HCL 25 MG CAPSULE PO ONE (19:55)
[2019-03-06] MEDS ORDERED: chlordiazePOXIDE HCL 25 MG CAPSULE ONE (19:56)
--- NOTE | 2019-03-06 20:01 | PN ---
Teaching Attending Note Name of Resident: Fadia West ATTENDING PHYSICIAN STATEMENT I saw and evaluated the patient. I reviewed the resident's note and discussed the case with the resident. I agree with the resident's findings and plan as documented. SUBJECTIVE: Patient is a 63 year old man with PMH of Alcohol abuse, Heroin Abuse (on methadone), Schizophrenia, Tobacco use, Acid reflux disease, Pancreatitis, Hypertension and Hyperlipidemia sent from [facility] for a pain around his abdominal hernia. Patient states he has had an abdominal hernia in the past intermittently causing pain. Denies any nausea or vomiting states he drinks vodka daily. He blacked out yesterday when he woke he presented to [facility] for detox. Patient states he is having significant pain around the periumbilical area but denies any fever, chills, diarrhea, dysuria, frequency and hematuria. Still using heroin. OBJECTIVE: Alert Vital Signs Period Temp Pulse Resp BP Sys/Mesa Pulse Ox Last 24 Hr 97.8 F-98.2 F 66-84 18-18 101-136/56-84 90-99 HEENT: No Jaundice, eye redness or discharge, PERRLA, EOMI. Normocephalic, atraumatic. External ears are normal and hearing is grossly intact. No nasal discharge. Neck: Supple, nontender. No palpable adenopathy or thyromegaly. No JVD Chest: Good effort. Clear to auscultation and percussion. Heart: Regular. No S3, rub or murmur Abdomen: Not distended, soft, periumbilical tenderness and no HSM. No rebound or guarding. Normal bowel sounds. Ext: Peripheral pulses intact. No leg edema. Skin: Warm and dry. No petechiae, rash or ecchymosis. Neuro: Alert. Oriented x3. CN 2-12 grossly intact. Sensation grossly intact in all four extremities and DTR are symmetric. Psych: Appropriate mood and affect. Good insight. Home Medications Medication Instructions Recorded Quetiapine Fumarate [Seroquel -] 400 mg PO HS #30 tablet 09/22/17 Albuterol Sulfate Inhaler - 2 inh NEB PRN 03/06/19 [Ventolin HFA Inhaler -] Hydrochlorothiazide [Hctz -] 25 mg PO BID 03/06/19 Abnormal Lab Results 03/06/19 03/06/19 03/06/19 15:00 15:00 15:00 MCV 100.9 H PTT (Actin FS) 36.8 H Lactic Acid AST Alcohol, Quantitative 168.9 H 03/06/19 03/06/19 03/06/19 15:00 15:07 18:35 MCV PTT (Actin FS) Lactic Acid 2.4 H* 2.7 H* AST 55 H Alcohol, Quantitative ASSESSMENT AND PLAN: 1. Alcohol intoxication/Umblical hernia - CT scan of the abdomen/pelvis with IV contrast showed umblical hernia, hepatic steatosis, L4-5, L5-S1 degenerative disc changes and dilated common bile duct. Surgery consulted. Dr. Plunkett came to evaluate the patient and reduced the hernia. Will keep him NPO, give IV banana bag and use tylenol for pain control. Patient will be monitored closely for heroin withdrawal and continue methadone. Implement [facility] alcohol withdrawal protocol and do neurochecks. Implement seizure, fall and aspiration precautions. Treat with thiamine and folic acid and monitor electrolytes (Ca,Mg,K,P). Counseled patient about abstaining from alcohol and heroin. Will consult information specialist and refer to alcohol/drug detox upon discharge. Will continue comprehensive care for all of patients comorbid conditions. 2. Tobacco Use Counseled on risks associated with tobacco use. We will provide patient all the necessary assistance to facilitate smoking cessation and prescribe Nicotine patch. 3. Obesity Counseled on the risks associated with obesity. Will provide patient all the necessary assistance, counseling and positive reinforcement to facilitate weight loss. Consult chain hooker. 4. Hypertension - Restart suitable outpatient antihypertensive drugs when clinically appropriate. Revise regimen to ensure [id number] excellent BP control and activities counselor patient on the injurious effects of uncontrolled hypertension. Nonpharmacologic measures to control hypertension like weight loss , salt restriction and exercise discussed. Importance of adherence to treatment regimen and attainment of normotension emphasized. 5. DVT prophylaxis - SCD for now since he may be going for surgery. 6. Advance directives - Full code
[2019-03-06] MEDS ORDERED: FOLIC ACID INJECTION - 1 MG, THIAMINE HCL 100 MG, MULTIVIT INJECTION ADULT 10 ML in SOD... IVPB ONE ×2 (20:42→22:27)
--- NOTE | 2019-03-06 22:03 | HP ---
CHIEF COMPLAINT: abdominal pain PCP: Dr Wan HISTORY OF PRESENT ILLNESS: 63 y/o unemployed M with PMH of HTN, HLD, GERD (not on any meds), pancreatitis, b/l inguinal hernia s/p repair in and , paranoid schizophrenia, and polysubstance abuse who came into the ED from [facility] because of abdominal pain for the past 4 weeks around his umbilical hernia. Patient describes the pain as sharp, nonradiating in the periumbilical region, intermittent in nature and rating 8/10 in severity. Nothing makes the pain better or worse; although patient admits to drinking and avoids being sober as the pain is unbearable and the alcohol numbs it out. The pain is associated with chills, nausea, vomiting and diarrhea (pt never assess stool therefore he is unaware if there has been any blood or change in color). For the past couple of months, the patient noticed that he has to stop after one flight of stairs in order to catch his breath. He denies any shortness of breath on supine position or waking up in the middle of the night gasping for air. He blacked out yesterday when he woke he presented to [facility] for detox as he feels like he is now ready to "quit drinking and foing drugs". Pt last acoholic beverage was this morning at 5 am with last withdrawal seizures couple of days ago. ER course was notable for: (1)CBC and CMP remarkable remarkable AST of 55. PT/PTT/INR 11.5/36.8/0.99. ETOH level 168.9.Librium 50mg once for withdrawal (2)Lactic acid of 2.4 -> 2.7, 2 bags of LR with one banana bag bolus. (3) CT abdo/pelvis remarkable umblical hernia, hepatic steatosis, L4-5, L5-S1 degenerative disc changes and dilated common bile duct. CRX ordered Recent Travel: none PAST MEDICAL HISTORY: as above PAST SURGICAL HISTORY: as above FAMILY HX: parents alive and well Social History: Smoking:about 10 cigarettes a day when he is using drugs Alcohol: 1 pint of vodka daily. last drink this morning Drugs: heroin on methadone 100/d. last use was yesterday and 1 bag. occasional marijuana Allergies No Known Allergies Allergy (Verified 03/06/19 13:41) HOME MEDICATIONS: Home Medications Medication Instructions Recorded Quetiapine Fumarate [Seroquel -] 400 mg PO HS #30 tablet 09/22/17 Albuterol Sulfate Inhaler - 2 inh NEB PRN 03/06/19 [Ventolin HFA Inhaler -] Hydrochlorothiazide [Hctz -] 25 mg PO BID 03/06/19 REVIEW OF SYSTEMS CONSTITUTIONAL: chills Absent: fever , diaphoresis, generalized weakness, malaise, loss of appetite, weight change HEENT: Absent: rhinorrhea, nasal congestion, throat pain, throat swelling, difficulty swallowing, mouth swelling, ear pain, eye pain, visual changes CARDIOVASCULAR: Absent: chest pain, syncope, palpitations, irregular heart rate, lightheadedness , peripheral edema RESPIRATORY: shortness of breath Absent: cough, dyspnea with exertion, orthopnea, wheezing, stridor, hemoptysis GASTROINTESTINAL:abdominal pain,abdominal distension, nausea, vomiting, diarrhea Absent: constipation, melena, hematochezia GENITOURINARY: Absent: dysuria, frequency, urgency, hesitancy, hematuria, flank pain, genital pain MUSCULOSKELETAL: Absent: myalgia, arthralgia, joint swelling, back pain, neck pain SKIN: Absent: rash, itching, pallor HEMATOLOGIC/IMMUNOLOGIC: Absent: easy bleeding, easy bruising, lymphadenopathy, frequent infections ENDOCRINE: Absent: unexplained weight gain, unexplained weight loss, heat intolerance, cold intolerance NEUROLOGIC: Absent: headache, focal weakness or paresthesias, dizziness, unsteady gait, seizure, mental status changes, bladder or bowel incontinence PSYCHIATRIC: Absent: anxiety, depression, suicidal or homicidal ideation, hallucinations. PHYSICAL EXAMINATION Vital Signs - 24 hr 03/06/19 03/06/19 03/06/19 13:44 17:31 20:34 Temperature 97.8 F 98.2 F 98.0 F Pulse Rate 84 Pulse Rate [ 66 71 Left Radial] Respiratory 18 18 18 Rate Blood Pressure 136/84 Blood Pressure 101/56 L 136/87 [Left Arm] O2 Sat by Pulse 99 90 L 91 L Oximetry (%) GENERAL: Awake, alert, and fully oriented, in no acute distress. HEAD: Normal with no signs of trauma. EYES: Pupils equal, round and reactive to light, extraocular movements intact, sclera anicteric, conjunctiva clear. No lid lag. EARS, NOSE, THROAT: nares patent, oropharynx clear without exudates. Moist mucous membranes. NECK: Normal range of motion, supple without lymphadenopathy, JVD, or masses. LUNGS: Breath sounds equal, clear to auscultation bilaterally. No wheezes, and no crackles. No accessory muscle use. HEART: Regular rate and rhythm, normal S1 and S2 without murmur, rub or gallop. ABDOMEN: Soft, preiumbilical tenderness, mod distended, normoactive bowel sounds , no guarding, no rebound, no masses. No hepatomegaly or splenomegaly. No fluid wave or shifting dullness. MUSCULOSKELETAL: Normal range of motion at all joints. No bony deformities or tenderness. No CVA tenderness. UPPER EXTREMITIES: 2+ pulses, warm, well-perfused. No cyanosis. No clubbing. No peripheral edema. LOWER EXTREMITIES: 2+ pulses, warm, well-perfused. No calf tenderness. No peripheral edema. NEUROLOGICAL: Cranial nerves II-XII intact. Normal speech. b/l hand tremors PSYCHIATRIC: Cooperative. Good eye contact. Appropriate mood and affect. no hallucinations or disorganized thoughts SKIN: Warm, dry, normal turgor, no rashes or lesions noted, normal capillary refill. Laboratory Results - last 24 hr 03/06/19 03/06/19 03/06/19 15:00 15:00 15:00 WBC 6.9 RBC 4.60 Hgb 15.3 Hct 46.4 MCV 100.9 H MCH 33.2 MCHC 32.9 RDW 13.1 D Plt Count 213 MPV 9.2 Absolute Neuts (auto) 3.7 Neutrophils % 53.8 Lymphocytes % 37.4 Monocytes % 5.4 Eosinophils % 2.9 Basophils % 0.5 Nucleated RBC % 0 PT with INR 11.70 INR 0.99 PTT (Actin FS) 36.8 H Sodium Potassium Chloride Carbon Dioxide Anion Gap BUN Creatinine Est GFR (CKD-EPI)AfAm Est GFR (CKD-EPI)NonAf Random Glucose Lactic Acid Calcium Total Bilirubin AST ALT Alkaline Phosphatase Troponin I Total Protein Albumin Alcohol, Quantitative 168.9 H Blood Type Antibody Screen 03/06/19 03/06/19 03/06/19 15:00 15:00 15:07 WBC RBC Hgb Hct MCV MCH MCHC RDW Plt Count MPV Absolute Neuts (auto) Neutrophils % Lymphocytes % Monocytes % Eosinophils % Basophils % Nucleated RBC % PT with INR INR PTT (Actin FS) Sodium 140 Potassium 4.0 Chloride 102 Carbon Dioxide 29 Anion Gap 10 BUN 9.7 Creatinine 0.8 Est GFR (CKD-EPI)AfAm 111.74 Est GFR (CKD-EPI)NonAf 96.41 Random Glucose 81 Lactic Acid 2.4 H* Calcium 8.9 Total Bilirubin 0.3 AST 55 H ALT 30 Alkaline Phosphatase 80 Troponin I Total Protein 7.5 Albumin 4.1 Alcohol, Quantitative Blood Type O POSITIVE Antibody Screen Negative 03/06/19 03/06/19 18:35 20:45 WBC RBC Hgb Hct MCV MCH MCHC RDW Plt Count MPV Absolute Neuts (auto) Neutrophils % Lymphocytes % Monocytes % Eosinophils % Basophils % Nucleated RBC % PT with INR INR PTT (Actin FS) Sodium Potassium Chloride Carbon Dioxide Anion Gap BUN Creatinine Est GFR (CKD-EPI)AfAm Est GFR (CKD-EPI)NonAf Random Glucose Lactic Acid 2.7 H* Calcium Total Bilirubin AST ALT Alkaline Phosphatase Troponin I < 0.02 Total Protein Albumin Alcohol, Quantitative Blood Type Antibody Screen ASSESSMENT/PLAN: 63 y/o unemployed M with PMH of HTN, HLD, GERD (not on any meds), pancreatitis, b/l inguinal hernia s/p repair in and , paranoid schizophrenia, and polysubstance abuse who came into the ED from [facility] because of abdominal pain for the past 4 weeks around his umbilical hernia. admitted for reducible umbilical hernia repair and alcohol intoxication. Reducible umbilical hernia. child carter score of 5, Meld score of 6, DUDLEY score 0.1, RCRI score 0 CT abdo/pelvis remarkable umblical hernia, hepatic steatosis, L4-5, L5-S1 degenerative disc changes and dilated common bile duct Surgery Dr Plunkett consulted. will consider urgent repair once sober. NG tube to decompress if vomiting resume pre-op labs ordered NPO except for meds Lactic acid 2.4->2.7 due to acute alcohol intoxication and poss due to reduced perfusion to herniated bowel segment continue to trend. pending repeat hydration s/p 2 LR bags and 1 bolus of banana bag continue maintenance fluid with banana bag zofran Q4h for nausea pain control with tylenol 650mg Q6h. pain elicited by palpation. narcotics if worsens. Lactic acidemia Lactic acid 2.4->2.7 due to acute alcohol intoxication and poss due to reduced perfusion to herniated bowel segment continue to trend cont hydration Alcohol withdrawal with hx of seizures. blood alcohol level 168.9 on admission pt had a CIWA score of 12 by the time of encounter patient had a CIWA of 9 librium protocol initiated. received 50 mg in the ED due to early manifestations of tremors b/l fall and seizure precautions head of bed elevated to prevent aspirations 1 banana bag bolused. continue as maintenance supplemental thiamine, folate and multivitamins monitor lytes Polysubstance abuse Pt on methadone 100/d which is reduced from previous doses per patient with continued use Dr Moody consulted will continue methadone 100/d for now UA and Utox sent educated on alcohol and drug abuse cessation alcohol detox on Discharge DVT SCDs for poss procedure tomorrow Visit type - Emergency Visit Emergency Visit: Yes ED Registration Date: 03/06/19 Care time: The patient presented to the Emergency Department on the above date and was hospitalized for further evaluation of their emergent condition. - New Patient This patient is new to me today: Yes Date on this admission: 03/07/19 - Critical Care Critical Care patient: No ATTENDING PHYSICIAN STATEMENT I saw and evaluated the patient. I reviewed the resident's note and discussed the case with the resident. I agree with the resident's findings and plan as documented. SUBJECTIVE: OBJECTIVE: ASSESSMENT AND PLAN:
[2019-03-06] MEDS ORDERED: ACETAMINOPHEN 325 MG TABLET (FP) PO PRN (22:15)
[2019-03-06] MEDS ORDERED: ONDANSETRON 4 MG/2 ML VIAL IVPUSH PRN (23:00)
[2019-03-07] MEDS ORDERED: chlordiazePOXIDE HCL 25 MG CAPSULE PO PRN (00:02)
[2019-03-07 04:20] LABS: PH,URINE 5.5 (5.0-8.0); URINE APPEARANCE CLEAR; URINE BILIRUBIN NEGATIVE (NEGATIVE); URINE COLOR YELLOW; URINE GLUCOSE (UA) NEGATIVE (NEGATIVE); URINE KETONE NEGATIVE (NEGATIVE); URINE LEUK ESTERASE NEGATIVE (NEGATIVE); URINE NITRITE NEGATIVE (NEGATIVE); URINE PROTEIN NEGATIVE (NEGATIVE)
[2019-03-07 04:58] LABS: COCAINE, UR NEGATIVE ng/ml (CUTOFF=300); PHENCYCLIDINE,URINE NEGATIVE ng/ml (CUTOFF=25); URINE AMPHETAMINES NEGATIVE ng/ml (CUTOFF=500); URINE BARBITURATES NEGATIVE ng/ml (CUTOFF=200); URINE BENZODIAZEPINES NEGATIVE ng/ml (CUTOFF=200)
[2019-03-07 05:14] LABS: METHADONE, UR POSITIVE ng/ml (CUTOFF=300); OPIATES, URI POSITIVE ng/ml (CUTOFF=300)
[2019-03-07] MEDS: chlordiazePOXIDE HCL 25 MG CAPSULE PO SCH ×2 (05:28→11:17)
[2019-03-07 07:53] VITALS: BMI 31.3
[2019-03-07 08:33] LABS: BASO % 0.5 % (0-2.0); HEMOGLOBIN 14.4 GM/dL (11.7-16.9); LYMPH % 40.3 % (8-40); MCH 33.2 pg (25.7-33.7); MCHC 32.7 g/dl (32.0-35.9); MEAN CELL VOLUME 101.5 fl (80-96); MEAN PLT VOLUME 9.1 fl (7.5-11.1); MONO % 6.6 % (3.8-10.2); NEUT % 48.6 % (42.8-82.8); PLATELET COUNT 199 K/MM3 (134-434); RBC 4.33 M/mm3 (4.00-5.60); RDW 13.4 % (11.9-15.9); WHITE BLOOD COUNT 6.3 K/mm3 (4.0-10.0)
[2019-03-07 09:02] LABS: ALBUMIN 3.4 g/dl (3.4-5.0); BILIRUBIN,TOTAL 0.7 mg/dL (0.2-1); BLOOD UREA NITROGEN 8.4 mg/dL (7-18); CALCIUM 8.3 mg/dL (8.5-10.1); CREATININE 0.7 mg/dL (0.55-1.3); MAGNESIUM 1.7 mg/dL (1.8-2.4); PHOSPHOROUS 3.8 mg/dL (2.5-4.9); POTASSIUM 4.2 mmol/L (3.5-5.1); TOT PROT 6.4 g/dl (6.4-8.2)
[2019-03-07] MEDS ORDERED: PT OWN MED DRAWER 7, Y5N ONE (09:25)
[2019-03-07] MEDS ORDERED: FOLIC ACID 1 MG TABLET (FP) PO SCH (10:00)
[2019-03-07] MEDS ORDERED: THIAMINE HCL 100 MG TABLET (FP) PO SCH (10:00)
[2019-03-07] MEDS ORDERED: MULTIVITAMINS (DAILY MVI) TABLET (FP) PO SCH (10:00)
--- NOTE | 2019-03-07 11:05 | EKG ---
Test Reason : Blood Pressure : / mmHG Vent. Rate : 069 BPM Atrial Rate : 069 BPM P-R Int : 184 ms QRS Dur : 088 ms QT Int : 400 ms P-R-T Axes : 078 081 067 degrees QTc Int : 428 ms NORMAL SINUS RHYTHM SEPTAL INFARCT , AGE UNDETERMINED ABNORMAL ECG WHEN COMPARED WITH ECG OF 21-SEP-2017 15:14, SEPTAL INFARCT IS NOW PRESENT Confirmed by Festus Orozco MD ([id number]) on 03/07/2019 11:04:51 AM Referred By: Confirmed By:Festus Orozco MD
--- NOTE | 2019-03-07 13:10 | DS ---
Physical Exam: SUBJECTIVE: Patient seen and examined. No acute events overnight. Denies fevers , nausea, vomiting, chills. OBJECTIVE: Vital Signs Period Temp Pulse Resp BP Sys/Mesa Pulse Ox Last 24 Hr 97.8 F-98.6 F 58-84 18-18 101-136/56-87 90-99 PHYSICAL EXAM GENERAL: The patient is awake, alert, and fully oriented, in no acute distress. HEAD: Normal with no signs of trauma. EYES: PERRL, extraocular movements intact, sclera anicteric, conjunctiva clear. ENT: Ears normal, nares patent, oropharynx clear without exudates, moist mucous membranes. NECK: Trachea midline, full range of motion, supple. LUNGS: Breath sounds equal, clear to auscultation bilaterally, no wheezes, no crackles, no accessory muscle use. HEART: Regular rate and rhythm, S1, S2 without murmur, rub or gallop. ABDOMEN: Mildly distended, soft, normoactive bowel sounds, no guarding, no rebound, no hepatosplenomegaly, no masses. Reducible umbilical hernia, no tenderness. EXTREMITIES: 2+ pulses, warm, well-perfused, no edema. NEUROLOGICAL: Cranial nerves II through XII grossly intact. Normal speech, gait not observed. PSYCH: Normal mood, normal affect. SKIN: Warm, dry, normal turgor, no rashes or lesions noted. LABS Laboratory Results - last 24 hr CBC, BMP 03/07/19 07:40 03/07/19 07:40 HOSPITAL COURSE: Date of Admission:03/06/19 63 y/o unemployed M with PMH of HTN, HLD, GERD (not on any meds), pancreatitis, b/l inguinal hernia s/p repair in and , paranoid schizophrenia, and polysubstance abuse who came into the ED from [facility] because of abdominal pain for the past 4 weeks around his umbilical hernia. CT of his abd/pelvis showed an umbilical hernia containing fat only, no acute intraabdominal pathology. Surgery/GI was consulted and evaluated the patient. Determined there is no need for immediate surgical intervention at this time and pt can follow up as outpatient. When patient was admitted, his CIWA score was 12, alcohol level 168.9 with positive opiates and heroin in urine. He was started on librium protocol, supplemented with thiamine and folate, banana bag, and monitored closely for withdrawal/seizures. His vitals are stable and he is clinically stable to be discharged back to [facility] to complete detox. Imaging: CTAP: umbilical hernia containing fat only Date of Discharge: 03/07/19 Minutes to complete discharge: 35 Discharge Summary Problems reviewed: Yes Reason For Visit: UMBILICAL HERNIA Current Active Problems Alcohol dependence with uncomplicated withdrawal (Acute) Umbilical hernia (Acute) Acid reflux (Chronic) Asthma (Chronic) HTN (hypertension) (Chronic) History of depression (Chronic) Hypercholesterolemia (Chronic) Nicotine dependence (Chronic) Obesity (BMI 30.0-34.9) (Chronic) Opioid dependence on agonist therapy (Chronic) Condition: Stable - Instructions Diet, Activity, Other Instructions: You were admitted to the hospital for abdominal pain and vomiting and found to have an umbilical hernia. A CAT scan of your abdomen showed that your hernia is not diseased at this time. A surgeon, Dr. Plunkett, saw you and does not see a need for immediate surgery. You should follow up with him in his clinic in 1 week to consider possible surgery. Your blood labs are normal and you are stable to be discharged back to [facility] to complete your detox. Follow up: >>Dr. Plunkett, surgery, in one week to evaluate your hernia. We provided you with a referral. >>Your primary care provider in one week. You may follow up at the resident medical clinic at [facility]. Please call [phone] to schedule an appointment with Dr. Lindsey. Medications: >>Resume all of your home medications as prescribed. Return to the emergency department if you experience any increased abdominal pain, nausea, vomiting, fevers or any other symptoms. Referrals: [facility] [place] [Provider Group] Dave Plunkett MD [Staff Physician] - Disposition: TRANSFER ACUTE CARE/OTHER HOSP - Home Medications Comprehensive Discharge Medication List: Ambulatory Orders Quetiapine Fumarate [Seroquel -] 400 mg PO HS #30 tablet 09/22/17 Albuterol Sulfate Inhaler - [Ventolin HFA Inhaler -] 2 inh NEB PRN 03/06/19 Atorvastatin Ca [Lipitor] 40 mg PO HS 03/07/19 Buspirone HCl [Buspar -] 10 mg PO BID 03/07/19 Fluticasone/Vilanterol [Breo Ellipta 100-25 Mcg INH] 1 each IH DAILY 03/07/19 Folic Acid - 1 mg PO DAILY tablet 03/07/19 Hydroxyzine HCl 50 mg PO BID 03/07/19 Multivitamins [Multivit ([facility] Formulary)] 1 tab PO DAILY tab 03/07/19 Omeprazole 20 mg PO DAILY 03/07/19 Thiamine HCl [Vitamin B1 -] 100 mg PO DAILY tablet 03/07/19 Varenicline Tartrate [Chantix] 1 each PO DAILY 03/07/19 This patient is new to me today: Yes Date on this admission: 03/07/19 Emergency Visit: No Critical Care patient: No - Discharge Referral Referred to [facility] Med P.C.: No ATTENDING PHYSICIAN STATEMENT I saw and evaluated the patient. I reviewed the resident's note and discussed the case with the resident. I agree with the resident's findings and plan as documented. SUBJECTIVE: OBJECTIVE: ASSESSMENT AND PLAN:
--- NOTE | 2019-03-07 13:52 | PN ---
Teaching Attending Note Name of Resident: Mary Ellen Carrillo ATTENDING PHYSICIAN STATEMENT I saw and evaluated the patient. I reviewed the resident's note and discussed the case with the resident. I agree with the resident's findings and plan as documented. SUBJECTIVE: Some ongoing abdominal discomfort. No nausea/vomiting/diarrhea/ melena/hematochezia. No fever/chills. OBJECTIVE: Afebrile, Hemodynamically Stable. No evidence of withdrawals. Last Vital Signs Temp Pulse Resp BP Pulse Ox 98.6 F 60 18 123/77 94 L 03/07/19 09:56 03/07/19 09:56 03/07/19 09:56 03/07/19 09:56 03/07/19 00:09 HEENT - Atraumatic, Normocephalic. Heart - S1, S2, RRR Lungs - clear to auscultation Abdomen - High BMI. Soft, reducible, tender morgan-umbilical hernia. No guarding/ rebound. Bowel sounds normal. Extremities - no edema/calf tenderness. Laboratory Results - last 24 hr 03/06/19 03/06/19 03/06/19 07:40 15:00 15:00 WBC RBC Hgb Hct MCV MCH MCHC RDW Plt Count MPV Absolute Neuts (auto) Neutrophils % Lymphocytes % Monocytes % Eosinophils % Basophils % Nucleated RBC % PT with INR 11.70 INR 0.99 PTT (Actin FS) 36.8 H Sodium Potassium Chloride Carbon Dioxide Anion Gap BUN Creatinine Est GFR (CKD-EPI)AfAm Est GFR (CKD-EPI)NonAf Random Glucose Lactic Acid Calcium Phosphorus Magnesium Total Bilirubin AST ALT Alkaline Phosphatase Troponin I Total Protein Albumin Urine Color Urine Appearance Urine pH Ur Specific [place] Urine Protein Urine Glucose (UA) Urine Ketones Urine Blood Urine Nitrite Urine Bilirubin Urine Urobilinogen Ur Leukocyte Esterase Opiates Screen Methadone Screen Barbiturate Screen Phencyclidine Screen Ur Amphetamines Screen MDMA (Ecstasy) Screen Benzodiazepines Screen Cocaine Screen U Marijuana (THC) Screen Alcohol, Quantitative 168.9 H Blood Type O POSITIVE Antibody Screen 03/06/19 03/06/19 03/06/19 15:00 15:00 15:00 WBC 6.9 RBC 4.60 Hgb 15.3 Hct 46.4 MCV 100.9 H MCH 33.2 MCHC 32.9 RDW 13.1 D Plt Count 213 MPV 9.2 Absolute Neuts (auto) 3.7 Neutrophils % 53.8 Lymphocytes % 37.4 Monocytes % 5.4 Eosinophils % 2.9 Basophils % 0.5 Nucleated RBC % 0 PT with INR INR PTT (Actin FS) Sodium 140 Potassium 4.0 Chloride 102 Carbon Dioxide 29 Anion Gap 10 BUN 9.7 Creatinine 0.8 Est GFR (CKD-EPI)AfAm 111.74 Est GFR (CKD-EPI)NonAf 96.41 Random Glucose 81 Lactic Acid Calcium 8.9 Phosphorus Magnesium Total Bilirubin 0.3 AST 55 H ALT 30 Alkaline Phosphatase 80 Troponin I Total Protein 7.5 Albumin 4.1 Urine Color Urine Appearance Urine pH Ur Specific [place] Urine Protein Urine Glucose (UA) Urine Ketones Urine Blood Urine Nitrite Urine Bilirubin Urine Urobilinogen Ur Leukocyte Esterase Opiates Screen Methadone Screen Barbiturate Screen Phencyclidine Screen Ur Amphetamines Screen MDMA (Ecstasy) Screen Benzodiazepines Screen Cocaine Screen U Marijuana (THC) Screen Alcohol, Quantitative Blood Type O POSITIVE Antibody Screen Negative 03/06/19 03/06/19 03/06/19 15:07 18:35 20:45 WBC RBC Hgb Hct MCV MCH MCHC RDW Plt Count MPV Absolute Neuts (auto) Neutrophils % Lymphocytes % Monocytes % Eosinophils % Basophils % Nucleated RBC % PT with INR INR PTT (Actin FS) Sodium Potassium Chloride Carbon Dioxide Anion Gap BUN Creatinine Est GFR (CKD-EPI)AfAm Est GFR (CKD-EPI)NonAf Random Glucose Lactic Acid 2.4 H* 2.7 H* Calcium Phosphorus Magnesium Total Bilirubin AST ALT Alkaline Phosphatase Troponin I < 0.02 Total Protein Albumin Urine Color Urine Appearance Urine pH Ur Specific [place] Urine Protein Urine Glucose (UA) Urine Ketones Urine Blood Urine Nitrite Urine Bilirubin Urine Urobilinogen Ur Leukocyte Esterase Opiates Screen Methadone Screen Barbiturate Screen Phencyclidine Screen Ur Amphetamines Screen MDMA (Ecstasy) Screen Benzodiazepines Screen Cocaine Screen U Marijuana (THC) Screen Alcohol, Quantitative Blood Type Antibody Screen 03/06/19 03/07/19 03/07/19 22:50 03:49 03:49 WBC RBC Hgb Hct MCV MCH MCHC RDW Plt Count MPV Absolute Neuts (auto) Neutrophils % Lymphocytes % Monocytes % Eosinophils % Basophils % Nucleated RBC % PT with INR INR PTT (Actin FS) Sodium Potassium Chloride Carbon Dioxide Anion Gap BUN Creatinine Est GFR (CKD-EPI)AfAm Est GFR (CKD-EPI)NonAf Random Glucose Lactic Acid 1.5 Calcium Phosphorus Magnesium Total Bilirubin AST ALT Alkaline Phosphatase Troponin I Total Protein Albumin Urine Color Yellow Urine Appearance Clear Urine pH 5.5 Ur Specific [place] 1.033 Urine Protein Negative Urine Glucose (UA) Negative Urine Ketones Negative Urine Blood Negative Urine Nitrite Negative Urine Bilirubin Negative Urine Urobilinogen 1.0 Ur Leukocyte Esterase Negative Opiates Screen Positive A* Methadone Screen Positive A* Barbiturate Screen Negative Phencyclidine Screen Negative Ur Amphetamines Screen Negative MDMA (Ecstasy) Screen Negative Benzodiazepines Screen Negative Cocaine Screen Negative U Marijuana (THC) Screen Positive A* Alcohol, Quantitative Blood Type Antibody Screen 03/07/19 03/07/19 07:40 07:40 WBC 6.3 RBC 4.33 Hgb 14.4 Hct 44.0 MCV 101.5 H MCH 33.2 MCHC 32.7 RDW 13.4 Plt Count 199 MPV 9.1 Absolute Neuts (auto) 3.1 Neutrophils % 48.6 Lymphocytes % 40.3 H Monocytes % 6.6 Eosinophils % 4.0 Basophils % 0.5 Nucleated RBC % 0 PT with INR INR PTT (Actin FS) Sodium 142 Potassium 4.2 Chloride 104 Carbon Dioxide 31 Anion Gap 7 L BUN 8.4 Creatinine 0.7 Est GFR (CKD-EPI)AfAm 118.05 Est GFR (CKD-EPI)NonAf 101.85 Random Glucose 74 Lactic Acid Calcium 8.3 L Phosphorus 3.8 Magnesium 1.7 L Total Bilirubin 0.7 AST 47 H ALT 27 Alkaline Phosphatase 65 Troponin I Total Protein 6.4 Albumin 3.4 Urine Color Urine Appearance Urine pH Ur Specific [place] Urine Protein Urine Glucose (UA) Urine Ketones Urine Blood Urine Nitrite Urine Bilirubin Urine Urobilinogen Ur Leukocyte Esterase Opiates Screen Methadone Screen Barbiturate Screen Phencyclidine Screen Ur Amphetamines Screen MDMA (Ecstasy) Screen Benzodiazepines Screen Cocaine Screen U Marijuana (THC) Screen Alcohol, Quantitative Blood Type Antibody Screen Current Medications Generic Name Dose Route Start Last Admin Trade Name Freq PRN Reason Stop Dose Admin Acetaminophen 650 mg 03/06/19 22:15 03/07/19 09:47 Tylenol - PO 650 mg Q4H PRN Administration PAIN LEVEL 1-5 Chlordiazepoxide HCl 10 mg 03/09/19 05:00 Librium - PO 03/09/19 23:01 [id number] JOHANNY Chlordiazepoxide HCl 10 mg 03/10/19 05:00 Librium - PO 11/01/19 17:01 Q12H JOHANNY Chlordiazepoxide HCl 10 mg 03/09/19 00:00 Librium - PO 03/10/19 00:00 Q4H PRN WITHDRAWAL(CONT SUBST) Chlordiazepoxide HCl 10 mg 03/11/19 05:00 Librium - PO 03/11/19 05:01 ONCE@0500 ONE Chlordiazepoxide HCl 50 mg 03/07/19 05:00 03/07/19 11:17 Librium - PO 03/07/19 23:01 50 mg [id number] JOHANNY Administration Chlordiazepoxide HCl 25 mg 03/08/19 05:00 Librium - PO 03/08/19 23:01 [id number] JOHANNY Chlordiazepoxide HCl 25 mg 03/07/19 00:02 Librium - PO 03/08/19 23:59 Q4H PRN WITHDRAWAL(CONT SUBST) Folic Acid 1 mg 03/07/19 10:00 03/07/19 09:48 Folic Acid - PO 1 mg DAILY JOHANNY Administration Multivitamins/Minerals/Vitamin C 1 tab 03/07/19 10:00 03/07/19 09:48 Tab-A-Vit - PO 1 tab DAILY JOHANNY Administration Ondansetron HCl 4 mg 03/06/19 23:00 Zofran Injection IVPUSH Q6H PRN NAUSEA Quetiapine Fumarate 400 mg 03/07/19 22:00 Seroquel - PO HS [facility] Thiamine HCl 100 mg 03/07/19 10:00 03/07/19 09:47 Vitamin B1 - PO 100 mg DAILY JOHANNY Administration Home Medications Medication Instructions Recorded Quetiapine Fumarate [Seroquel -] 400 mg PO HS #30 tablet 09/22/17 Albuterol Sulfate Inhaler - 2 inh NEB PRN 03/06/19 [Ventolin HFA Inhaler -] Atorvastatin Ca [Lipitor] 40 mg PO HS 03/07/19 Buspirone HCl [Buspar -] 10 mg PO BID 03/07/19 Fluticasone/Vilanterol [Breo 1 each IH DAILY 03/07/19 Ellipta 100-25 Mcg INH] Folic Acid - 1 mg PO DAILY tablet 03/07/19 Hydroxyzine HCl 50 mg PO BID 03/07/19 Multivitamins [Multivit ([facility] 1 tab PO DAILY tab 03/07/19 Formulary)] Omeprazole 20 mg PO DAILY 03/07/19 Thiamine HCl [Vitamin B1 -] 100 mg PO DAILY tablet 03/07/19 Varenicline Tartrate [Chantix] 1 each PO DAILY 03/07/19 ASSESSMENT/PLAN: 63 year old male with history of COPD, HLD, GERD, Pancreatitis, bilateral inguinal hernia repair, Schizophrenia, Polysubstance Abuse ( ), transferred to ED from [facility] with 1 month history of increasing abdominal pain associated with para-umbilical hernia. CT A/P - umbilical hernia containing fat. DJD LS Spine. 1. Umbilical Hernia, fat containing, reducible, non-surgical Evaluated by surgery - reduced. No need for surgery on this admission, can follow for elective procedure as out-patient. Lactate normalized. If tolerated oral intake, can be transferred back to [facility] to complete detox. 2. Acute Alcohol Withdrawal On Librium withdrawal protocol For transfer to to complete detox. Thiamine. folate supplemention 3. Polysubstance Abuse - continue Methadone Utox - Opiate, MJ, Methadone + Addiction medicine contacted for transfer back to 4. Macrocytosis, likely sec to alc excess. B12/Folate added to AM labs. 5. Schizophrenia - Stable, no active psychosis. Home meds - Hydroxyzine, Seroquel, Buspirone 6. HLD - continue Statin. Medicaly optimized for transfer to for ongoing detox once tolerates oral intake with Surgery out-patient follow up.
[2019-03-07 15:44] VITALS: BP 141/73; PULSE 66; TEMP 98.1
[2019-03-07] MEDS ORDERED: QUEtiapine FUMARATE 200 MG TABLET PO SCH (22:00)
[2019-03-08] MEDS ORDERED: chlordiazePOXIDE HCL 25 MG CAPSULE PO SCH (05:00)
[2019-03-09] MEDS ORDERED: chlordiazePOXIDE HCL 10 MG CAPSULE PO PRN
[2019-03-09] MEDS ORDERED: chlordiazePOXIDE HCL 10 MG CAPSULE PO SCH (05:00)
[2019-03-10] MEDS ORDERED: chlordiazePOXIDE HCL 10 MG CAPSULE PO SCH (05:00)
[2019-03-11] MEDS ORDERED: chlordiazePOXIDE HCL 10 MG CAPSULE PO ONE (05:00)
== END 2019-03-07 15:30 | disposition other institution (70) | DRG 254 ==
LOC: JER 13:25 → JERBED 18:50 → J5S 23:50
PROVIDERS: ADMIT Internal Medicine
PROC: HZ2ZZZZ Detoxification Services for Substance Abuse Treatment (ICD-10-PCS; principal; 2019-03-06)
DX: K42.9 Umbilical hernia without obstruction or gangrene (principal); I10 Essential (primary) hypertension; F10.230 Alcohol dependence with withdrawal, uncomplicated; E78.5 Hyperlipidemia, unspecified; K21.9 Gastro-esophageal reflux disease without esophagitis; F12.20 Cannabis dependence, uncomplicated; J45.909 Unspecified asthma, uncomplicated; E66.8 Other obesity; Z68.31 Body mass index [BMI] 31.0-31.9, adult; F11.20 Opioid dependence, uncomplicated; M51.36 Other intervertebral disc degeneration, lumbar region; K82.8 Other specified diseases of gallbladder; K76.0 Fatty (change of) liver, not elsewhere classified; E87.2 Acidosis; F20.0 Paranoid schizophrenia; R11.10 Vomiting, unspecified; F17.210 Nicotine dependence, cigarettes, uncomplicated; R25.8 Other abnormal involuntary movements; K86.1 Other chronic pancreatitis; D75.89 Other specified diseases of blood and blood-forming organs
CPT/HCPCS: 36415; 71045-TC-FY; 74177-TC; 80053; 80307; 81003; 82607; 82746; 83605; 83735; 84100; 84484; 85025; 85610; 85730; 86850; 86900; 86901; 93005; 93010; 97116-GP; 97161-GP; 99285-25; J7030

== ENCOUNTER 2019-03-07 15:33 | Inpatient (IN) | payer OTHER ==
[2019-03-07 16:19] VITALS: BMI 31.4
--- NOTE | 2019-03-07 17:08 | HP ---
CIWA Score Nausea/Vomitin-Mild Nausea/No Vomiting Muscle Tremors: 3 Anxiety: 2 Agitation: 3 Paroxysmal Sweats: 2 Orientation: 0-Oriented Tacttile Disturbances: 0-None Auditory Disturbances: 0-None Visual Disturbances: 0-None Headache: 0-None Present CIWA-Ar Total Score: 11 - Admission Criteria OASAS Guidelines: Admission for Medically Managed Detox: Requires at least one of the followin. CIWA greater than 12 2. Seizures within the past 24 hours 3. Delirium tremens within the past 24 hours 4. Hallucinations within the past 24 hours 5. Acute intervention needed for co occurring medical disorder 6. Acute intervention needed for co occurring psychiatric disorder 7. Severe withdrawal that cannot be handled at a lower level of care (continued vomiting, continued diarrhea, abnormal vital signs) requiring intravenous medication and/or fluids 8. Admitting History and Physical - Past Medical History Cardiovascular: Yes: HTN, Hyperlipdemia Pulmonary: Yes: Asthma Gastrointestinal: Yes: GERD - Smoking History Smoking history: Current every day smoker Have you smoked in the past 12 months: Yes Aproximately how many cigarettes per day: 30 - Alcohol/Substance Use Hx Alcohol Use: Yes - Social History History of Recent Travel: No Admission ROS [facility] Chief Complaint: detox alcohol Allergies/Adverse Reactions: Allergies Allergy/AdvReac Type Severity Reaction Status Date / Time No Known Allergies Allergy Verified 03/06/19 13:41 History of Present Illness: 63 year old male with history of alcohol and heroin dependence on 100mg methadone daily ([facility]) here for alcohol detox. Was in hospital yesterday for umbilical hernia evaluation, deemed not incarcerated, and sent back for detox. Alcohol: 2 pint vodka daily, starts in ht morning, has had withdrawal seizures Heroin: formerly 2 bags intranasally [facility] Cigarettes: 1ppd many years PMH: abdominal hernia, HTN, HLD, Asthma, Gerd Psurg: Right and Left inguinal herniorrhaphies in 1974 and 1977 Family Hx: mother and father alive with htn; brother had throat cancer (passed 6 -8 months ago), 3 other brothers alive; lives with who is also dependent on opioids - Ebola screening Have you traveled outside of the country in the last 21 days: No Have you had contact with anyone from an Ebola affected area: No Patient History - Patient Medical History Hx Anemia: No Hx Asthma: Yes Hx Chronic Obstructive Pulmonary Disease (COPD): No Hx Cancer: No Hx Cardiac Disorders: No Hx Congestive Heart Failure: No Hx Hypertension: Yes (Takes HCTZ.) Hx Hypercholesterolemia: Yes (No Meds.) Hx Pacemaker: No HX Cerebrovascular Accident: No Hx Seizures: No Hx Dementia: No Hx Diabetes: No Hx Gastrointestinal Disorders: Yes (Acid reflux.) Hx Liver Disease: No Hx Genitourinary Disorders: No Hx Sexually Transmitted Disorders: No Hx Renal Disease (ESRD): No Hx Thyroid Disease: No Hx Human Immunodeficiency Virus (HIV): No (Last Tested: Approx. 2 Years ago.) Hx Hepatitis C: No (Last Tested: Approx. 2 Years ago.) Hx Depression: Yes (Takes Seroquel.) Hx Suicide Attempt: No (PATIENT DENEIS CURRENT SI / HI.) Hx Bipolar Disorder: Yes (Takes Seroquel.) Hx Schizophrenia: Yes (No Medication.) - Patient Surgical History Past Surgical History: Yes Hx Neurologic Surgery: No Hx Cataract Extraction: No Hx Cardiac Surgery: No Hx Lung Surgery: No Hx Breast Surgery: No Hx Breast Biopsy: No Hx Abdominal Surgery: No Hx Appendectomy: No Hx Cholecystectomy: No Hx Genitourinary Surgery: No Hx Section: No Hx Orthopedic Surgery: No Other Surgical History: bilateral inguinal hernia repair, AT AGE 22 Anesthesia Reaction: No - PPD History Date: 09/23/17 Results: 0 mm. - Smoking Cessation Smoking history: Current every day smoker Have you smoked in the past 12 months: Yes Aproximately how many cigarettes per day: 30 Cigars Per Day: 0 Hx Chewing Tobacco Use: No Initiated information on smoking cessation: Yes 'Breaking Loose' booklet given: 03/07/19 - Substances abused Heroin Substance route: Inhalation Frequency: Daily Amount used: 3 bags Age of first use: 17 Date of last use: 03/05/19 Alcohol Substance route: Oral Frequency: Daily Amount used: 2 pints Age of first use: 14 Date of last use: 03/06/19 Admission Physical Exam [facility] - Vital Signs Vital Signs: Vital Signs - 24 hr 03/07/19 03/07/19 16:12 16:37 Temperature 98.2 F 98.2 F Pulse Rate 67 67 Respiratory 20 20 Rate Blood Pressure 144/82 144/82 - Physical General Appearance: Yes: No Apparent Distress, Nourished HEENTM: Yes: EOMI Respiratory: Yes: Chest Non-Tender, Lungs Clear Breast: Yes: Within Normal Limits, Axillae without masses Cardiology: Yes: Regular Rhythm, Regular Rate Abdominal: Yes: Normal Bowel Sounds, Non Tender, Flat, Soft Neurological: Yes: air deodorizer servicer II-XII NML intact, Fully Oriented, Alert, Motor Strength 5/5, Normal Mood/Affect Integumentary: Yes: Dry, Warm - Diagnostic (1) Alcohol dependence with uncomplicated withdrawal Current Visit: No Status: Acute (2) HTN (hypertension) Current Visit: No Status: Chronic Qualifiers: (3) History of depression Current Visit: No Status: Chronic (4) Nicotine dependence Current Visit: No Status: Chronic Qualifiers: Nicotine product type: cigarettes Substance use status: uncomplicated Qualified Code(s): F17.210 - Nicotine dependence, cigarettes, uncomplicated (5) Obesity (BMI 30.0-34.9) Current Visit: No Status: Chronic (6) Umbilical hernia Current Visit: No Status: Acute Qualifiers: Obstruction and gangrene presence: without obstruction or gangrene Qualified Code(s): K42.9 - Umbilical hernia without obstruction or gangrene Cleared for Admission S - Detox or Rehab [facility] Level of Care: Medically Managed Breathalyzer - Breathalyzer Breathalyzer: 0 Urine Drug Screen - Test Device Lot number: [id number] Expiration date: 11/06/20 - Control Is test valid?: Yes - Results Drug screen NEGATIVE: No Urine drug screen results: THC-Marijuana, MOP-Opiates, MTD-Methadone, BZO- Benzodiazepines Inpatient Rehab Admission - Rehab Decision to Admit Inpatient rehab admission?: No
[2019-03-07] MEDS ORDERED: chlordiazePOXIDE HCL 25 MG CAPSULE PO PRN (17:11)
[2019-03-07] MEDS ORDERED: IBUPROFEN 400 MG TABLET (FP) PO PRN (17:11)
[2019-03-07] MEDS ORDERED: ACETAMINOPHEN 325 MG TABLET (FP) PO PRN ×2 (17:11)
[2019-03-07] MEDS ORDERED: MELATONIN 5 MG TABLETS PO PRN (17:11)
[2019-03-07] MEDS ORDERED: BISMUTH SUBSALICYLATE 524 MG/30 ML UD PO PRN (17:11)
[2019-03-07] MEDS ORDERED: MAGNESIUM CITRATE 300 ML BOTTLE PO PRN (17:11)
[2019-03-07] MEDS ORDERED: METHOCARBAMOL 500 MG TABLET PO PRN (17:11)
[2019-03-07] MEDS ORDERED: MAGNESIUM HYDROX 2400MG/30ML ORAL SUSPENSION 30 ML CUP PO PRN (17:11)
[2019-03-07] MEDS ORDERED: MAG HYDROX/AL HYDROX/SIMETH 30 ML UNIT-DOSE CUP PO PRN (17:11)
[2019-03-07] MEDS ORDERED: MENTHOL/PHENOL 1 EACH UD MM PRN (17:11)
[2019-03-07] MEDS ORDERED: hydrOXYzine PAMOATE 25 MG CAPSULE (FP) PO PRN (17:11)
[2019-03-07] MEDS ORDERED: METHADONE HCL 10 MG TABLET PO ONE (17:28)
[2019-03-07] MEDS ORDERED: METHADONE HCL 10 MG TABLET PO SCH (17:30)
[2019-03-07] MEDS ORDERED: chlordiazePOXIDE HCL 25 MG CAPSULE PO ONE (19:00)
[2019-03-07] MEDS ORDERED: METHADONE 80 MG, METHADONE 20 MG PO ONE (19:00)
[2019-03-07] MEDS ORDERED: METHADONE HCL 10 MG TABLET ONE (19:01)
[2019-03-07] MEDS ORDERED: METHADONE HCL 40 MG DISPERSABLE TABLET ONE (19:02)
[2019-03-07] MEDS: NICOTINE 21 MG/24 HOURS TOPICAL PATCH TD SCH (19:10)
[2019-03-07] MEDS ORDERED: QUEtiapine FUMARATE 400 MG TABLET PO SCH (22:00)
[2019-03-07] MEDS: busPIRone HCL 10 MG TABLET (FP) PO SCH (22:07)
[2019-03-07] MEDS: chlordiazePOXIDE HCL 25 MG CAPSULE PO SCH (22:07)
[2019-03-07] MEDS: ATORVASTATIN CA 40 MG TABLET (FP) PO SCH (22:08)
[2019-03-07] MEDS: BUDESONIDE/FORMETEROL FUMARATE 80/4.5 mcg INHALER IH SCH (22:09)
[2019-03-07] MEDS: THIAMINE HCL 100 MG TABLET (FP) PO SCH (22:10)
[2019-03-08] MEDS ORDERED: METHADONE HCL 40 MG DISPERSABLE TABLET ONE (04:25)
[2019-03-08] MEDS ORDERED: METHADONE HCL 10 MG TABLET ONE (04:25)
[2019-03-08] MEDS: METHADONE 80 MG, METHADONE 20 MG PO SCH (05:36)
[2019-03-08] MEDS: chlordiazePOXIDE HCL 25 MG CAPSULE PO SCH ×4 (05:36→22:44)
--- NOTE | 2019-03-08 08:45 | CONSULT ---
[facility] Psychiatric Consult - Data Date of interview: 03/08/19 Admission source: Self-referred Identifying data: Mr Mcdonough is a 62 years old Black male, father of 6 children, unemployed receiving SSI, domiciled seeking inpatient rehab treatment for alcohol and opioid Substance Abuse History: Reports history of alcohol and heroin use. Refer to addiction counselor's summary for further information Medical History: Significant for history of hypertension, dyslipidemia, GERD and history of alcohol-related seizue, pancreatitis and bilateral inguinal hernia repair. Patient is on methadone 100 mg/day([facility]). Smokes 10 cigarettes Psychiatric History: Patient is known to rewriter from a previous admissions to this facility and most recently in July 2018. Historical narrative remains consistent. Reports that his first psychiaric contact occured at age 18 when he was admitted to [facility] and diagnosed with Paranoid Schizophrenia. He was kept for 15 days and started on Haldol. Reports multiple subsequent psychiatric hospitalizations at various facilities including [facility]), [facility], [facility], [facility]. Most recent admission was in 2014 to [facility]. Denies history of suicidal attempt. Reports that he still receives outpatient psychiatric treatment at [facility] in the [place], [place] where he sees a therapist and a psychiatrist. He is currently prescribed Zoloft 100 mg/day, Seroquel 400 mg/hs. Denies previous suicidal attempt. At present, denies experiencing psychotic, manic symptoms. However, reports feeling depressed and sleping poorly Physical/Sexual Abuse/Trauma History: Denies history of emotional, physical or sexual abuse as well as DV relationship Additional Comment: Reports history of 4 previous arrests including one felony conviction. Denies being on parole/probation Mental Status Exam - Mental Status Exam Alert and Oriented to: Time, Place, Person Cognitive Function: Fair Patient Appearance: Disheveled Mood: Depressed Affect: Appropriate Patient Behavior: Sedated (mildly), Cooperative Speech Pattern: Clear Voice Loudness: Normal Thought Process: Intact, Goal Oriented Thought Disorder: Not Present Suicidal Ideation: Denies Homicidal Ideation: Denies Insight/Judgement: Poor Sleep: Poorly Appetite: Fair Muscle strength/Tone: Normal Gait/Station: Normal Psychiatric Findings - Problem List ([place] 1, 2,3) (1) Paranoid schizophrenia Current Visit: Yes Status: Chronic (2) Substance induced mood disorder Current Visit: No Status: Acute (3) Substance-induced sleep disorder Current Visit: No Status: Acute (4) Opioid dependence on agonist therapy Current Visit: Yes Status: Chronic (5) Alcohol dependence with uncomplicated withdrawal Current Visit: No Status: Acute (6) Nicotine dependence Current Visit: No Status: Chronic Qualifiers: Nicotine product type: cigarettes Substance use status: uncomplicated Qualified Code(s): F17.210 - Nicotine dependence, cigarettes, uncomplicated (7) Acid reflux Current Visit: No Status: Chronic Qualifiers: Esophagitis presence: esophagitis presence not specified Qualified Code(s) : K21.9 - Gastro-esophageal reflux disease without esophagitis (8) HTN (hypertension) Current Visit: No Status: Chronic Qualifiers: (9) Hypercholesterolemia Current Visit: No Status: Chronic (10) Bronchial asthma Current Visit: Yes Status: Chronic (11) Obesity (BMI 30.0-34.9) Current Visit: No Status: Chronic (12) Umbilical hernia Current Visit: No Status: Chronic Qualifiers: Obstruction and gangrene presence: without obstruction or gangrene Qualified Code(s): K42.9 - Umbilical hernia without obstruction or gangrene - Initial Treatment Plan Initial Treatment Plan: 1) Continue Zoloft 100 mg po daily. 2) Discontinue Seroquel 400 mg po HS ordered by medical transport specialist due to oversedation. 3) Start Seroquel 200 mg po HS. 4) Continue inpatient detoxification
[2019-03-08 10:08] LABS: HEMATOCRIT 42.6 % (35.4-49); HEMOGLOBIN 13.9 GM/dL (11.7-16.9); MCH 33.2 pg (25.7-33.7); MCHC 32.7 g/dl (32.0-35.9); MEAN CELL VOLUME 101.3 fl (80-96); PLATELET COUNT 203 K/MM3 (134-434)
[2019-03-08] MEDS: BUDESONIDE/FORMETEROL FUMARATE 80/4.5 mcg INHALER IH SCH ×2 (10:09→22:45)
[2019-03-08] MEDS: SERTRALINE HCL 50 MG TABLET (FP) PO SCH (10:10)
[2019-03-08] MEDS: PRENATAL VITAMINS W/ FOLIC ACID TABLET (FP) PO SCH (10:10)
[2019-03-08] MEDS: busPIRone HCL 10 MG TABLET (FP) PO SCH ×2 (10:10→22:45)
[2019-03-08] MEDS: NICOTINE 21 MG/24 HOURS TOPICAL PATCH TD SCH (10:10)
[2019-03-08 10:18] LABS: ALBUMIN 3.6 g/dl (3.4-5.0); BILIRUBIN,TOTAL 0.3 mg/dL (0.2-1); BLOOD UREA NITROGEN 10.5 mg/dL (7-18); CALCIUM 8.9 mg/dL (8.5-10.1); CREATININE 0.7 mg/dL (0.55-1.3); POTASSIUM 4.1 mmol/L (3.5-5.1); TOT PROT 6.4 g/dl (6.4-8.2)
--- NOTE | 2019-03-08 11:43 | PN ---
[facility] CIWA - CIWA Score Nausea/Vomitin-No Nausea/No Vomiting Muscle Tremors: 3 Anxiety: 2 Agitation: 2 Paroxysmal Sweats: 3 Orientation: 0-Oriented Tacttile Disturbances: 0-None Auditory Disturbances: 0-None Visual Disturbances: 0-None Headache: 0-None Present CIWA-Ar Total Score: 10 S Progress Note (SOAP) Subjective: sweats mild shakes interrupted sleep agitation Objective: 03/08/19 11:42 Vital Signs Temperature 97.7 F 03/08/19 09:28 Pulse Rate 56 L 03/08/19 09:28 Respiratory Rate 18 03/08/19 09:28 Blood Pressure 104/69 03/08/19 09:28 O2 Sat by Pulse Oximetry (%) Laboratory Tests 03/08/19 03/08/19 03/08/19 08:00 08:00 08:00 WBC 7.0 RBC 4.20 Hgb 13.9 Hct 42.6 MCV 101.3 H MCH 33.2 MCHC 32.7 RDW 13.0 Plt Count 203 MPV 9.0 Sodium 141 Potassium 4.1 Chloride 105 Carbon Dioxide 29 Anion Gap 6 L BUN 10.5 Creatinine 0.7 Est GFR (CKD-EPI)AfAm 118.05 Est GFR (CKD-EPI)NonAf 101.85 Random Glucose 96 Calcium 8.9 Total Bilirubin 0.3 AST 29 ALT 23 Alkaline Phosphatase 73 Total Protein 6.4 Albumin 3.6 RPR Titer Nonreactive labs noted aaox3 ambulating no acute distress Assessment: 03/08/19 11:42 withdrawals Plan: continue detox increase fluids
[2019-03-08] MEDS: QUEtiapine FUMARATE 200 MG TABLET PO SCH (22:44)
[2019-03-08] MEDS: ATORVASTATIN CA 40 MG TABLET (FP) PO SCH (22:44)
[2019-03-08] MEDS: THIAMINE HCL 100 MG TABLET (FP) PO SCH (22:45)
[2019-03-09] MEDS ORDERED: METHADONE HCL 10 MG TABLET ONE (04:22)
[2019-03-09] MEDS ORDERED: METHADONE HCL 40 MG DISPERSABLE TABLET ONE (04:24)
[2019-03-09] MEDS: METHADONE 80 MG, METHADONE 20 MG PO SCH (05:34)
[2019-03-09] MEDS: chlordiazePOXIDE HCL 25 MG CAPSULE PO SCH ×4 (05:35→22:14)
[2019-03-09] MEDS: BUDESONIDE/FORMETEROL FUMARATE 80/4.5 mcg INHALER IH SCH ×2 (10:29→22:15)
[2019-03-09] MEDS: busPIRone HCL 10 MG TABLET (FP) PO SCH ×2 (10:30→22:14)
[2019-03-09] MEDS: PRENATAL VITAMINS W/ FOLIC ACID TABLET (FP) PO SCH (10:30)
[2019-03-09] MEDS: SERTRALINE HCL 50 MG TABLET (FP) PO SCH (10:30)
[2019-03-09] MEDS: NICOTINE 21 MG/24 HOURS TOPICAL PATCH TD SCH (10:32)
[2019-03-09] MEDS ORDERED: ONDANSETRON *ODT* 4 MG TABLET SL PRN (10:44)
--- NOTE | 2019-03-09 10:44 | PN ---
S CIWA - CIWA Score Nausea/Vomitin-No Nausea/No Vomiting Muscle Tremors: 3 Anxiety: 2 Agitation: 2 Paroxysmal Sweats: 2 Orientation: 0-Oriented Tacttile Disturbances: 0-None Auditory Disturbances: 0-None Visual Disturbances: 0-None Headache: 0-None Present CIWA-Ar Total Score: 9 BHS Progress Note (SOAP) Subjective: sweats shakes constipation nausea Objective: 03/09/19 10:42 Vital Signs Temperature 97.3 F L 03/09/19 09:33 Pulse Rate 73 03/09/19 09:33 Respiratory Rate 17 03/09/19 09:33 Blood Pressure 104/68 03/09/19 09:33 O2 Sat by Pulse Oximetry (%) Laboratory Tests 03/08/19 03/08/19 03/08/19 08:00 08:00 08:00 WBC 7.0 RBC 4.20 Hgb 13.9 Hct 42.6 MCV 101.3 H MCH 33.2 MCHC 32.7 RDW 13.0 Plt Count 203 MPV 9.0 Sodium 141 Potassium 4.1 Chloride 105 Carbon Dioxide 29 Anion Gap 6 L BUN 10.5 Creatinine 0.7 Est GFR (CKD-EPI)AfAm 118.05 Est GFR (CKD-EPI)NonAf 101.85 Random Glucose 96 Calcium 8.9 Total Bilirubin 0.3 AST 29 ALT 23 Alkaline Phosphatase 73 Total Protein 6.4 Albumin 3.6 RPR Titer Nonreactive labs noted aaox3 ambulating no acute distress Assessment: 03/09/19 10:42 withdrawals Plan: continue detox increase fluids
[2019-03-09] MEDS: ATORVASTATIN CA 40 MG TABLET (FP) PO SCH (22:14)
[2019-03-09] MEDS: QUEtiapine FUMARATE 200 MG TABLET PO SCH (22:14)
[2019-03-09] MEDS: THIAMINE HCL 100 MG TABLET (FP) PO SCH (22:15)
[2019-03-10] MEDS ORDERED: chlordiazePOXIDE HCL 10 MG CAPSULE PO PRN
[2019-03-10] MEDS ORDERED: METHADONE HCL 10 MG TABLET ONE (05:03)
[2019-03-10] MEDS ORDERED: METHADONE HCL 40 MG DISPERSABLE TABLET ONE (05:03)
[2019-03-10] MEDS: chlordiazePOXIDE HCL 10 MG CAPSULE PO SCH ×4 (05:40→22:04)
[2019-03-10] MEDS: METHADONE 80 MG, METHADONE 20 MG PO SCH (05:40)
[2019-03-10] MEDS: busPIRone HCL 10 MG TABLET (FP) PO SCH ×2 (10:09→22:04)
[2019-03-10] MEDS: SERTRALINE HCL 50 MG TABLET (FP) PO SCH (10:09)
[2019-03-10] MEDS: BUDESONIDE/FORMETEROL FUMARATE 80/4.5 mcg INHALER IH SCH ×2 (10:09→22:05)
[2019-03-10] MEDS: NICOTINE 21 MG/24 HOURS TOPICAL PATCH TD SCH (10:09)
[2019-03-10] MEDS: PRENATAL VITAMINS W/ FOLIC ACID TABLET (FP) PO SCH (10:09)
--- NOTE | 2019-03-10 12:02 | PN ---
S CIWA - CIWA Score Nausea/Vomitin-No Nausea/No Vomiting Muscle Tremors: 2 Anxiety: 1-Mildly Anxious Agitation: 1-Slight > Activity Paroxysmal Sweats: 1-Minimal Palms Moist Orientation: 0-Oriented Tacttile Disturbances: 0-None Auditory Disturbances: 0-None Visual Disturbances: 0-None Headache: 0-None Present CIWA-Ar Total Score: 5 BHS Progress Note (SOAP) Subjective: sweats mild shakes restless Objective: 03/10/19 12:01 Vital Signs Temperature 97.2 F L 03/10/19 09:41 Pulse Rate 69 03/10/19 09:41 Respiratory Rate 20 03/10/19 09:41 Blood Pressure 123/68 03/10/19 09:41 O2 Sat by Pulse Oximetry (%) aaox3 ambulating no acute distress Assessment: 03/10/19 12:01 mild withdrawals Plan: continue detox increase fluids
[2019-03-10] MEDS: THIAMINE HCL 100 MG TABLET (FP) PO SCH (22:04)
[2019-03-10] MEDS: ATORVASTATIN CA 40 MG TABLET (FP) PO SCH (22:04)
[2019-03-10] MEDS: QUEtiapine FUMARATE 200 MG TABLET PO SCH (22:04)
[2019-03-11] MEDS ORDERED: METHADONE HCL 10 MG TABLET ONE (04:23)
[2019-03-11] MEDS ORDERED: METHADONE HCL 40 MG DISPERSABLE TABLET ONE (04:24)
[2019-03-11] MEDS: chlordiazePOXIDE HCL 10 MG CAPSULE PO SCH ×2 (05:23→17:21)
[2019-03-11] MEDS: METHADONE 80 MG, METHADONE 20 MG PO SCH (05:23)
[2019-03-11] MEDS: busPIRone HCL 10 MG TABLET (FP) PO SCH ×2 (10:23→22:21)
[2019-03-11] MEDS: SERTRALINE HCL 50 MG TABLET (FP) PO SCH (10:23)
[2019-03-11] MEDS: NICOTINE 21 MG/24 HOURS TOPICAL PATCH TD SCH (10:23)
[2019-03-11] MEDS: BUDESONIDE/FORMETEROL FUMARATE 80/4.5 mcg INHALER IH SCH ×2 (10:23→22:23)
[2019-03-11] MEDS: PRENATAL VITAMINS W/ FOLIC ACID TABLET (FP) PO SCH (10:23)
--- NOTE | 2019-03-11 11:42 | PN ---
S CIWA - CIWA Score Nausea/Vomitin-No Nausea/No Vomiting Muscle Tremors: None Anxiety: 1-Mildly Anxious Agitation: 1-Slight > Activity Paroxysmal Sweats: 1-Minimal Palms Moist Orientation: 0-Oriented Tacttile Disturbances: 0-None Auditory Disturbances: 0-None Visual Disturbances: 0-None Headache: 0-None Present CIWA-Ar Total Score: 3 BHS Progress Note (SOAP) Subjective: body aches little sweats Objective: 03/11/19 11:41 Vital Signs Temperature 96.8 F L 03/11/19 09:30 Pulse Rate 92 H 03/11/19 09:30 Respiratory Rate 18 03/11/19 09:30 Blood Pressure 156/70 03/11/19 09:30 O2 Sat by Pulse Oximetry (%) aaox3 ambulating no acute distress Assessment: 03/11/19 11:42 mild withdrawals Plan: continue detox d/c in am
[2019-03-11] MEDS: THIAMINE HCL 100 MG TABLET (FP) PO SCH (22:21)
[2019-03-11] MEDS: QUEtiapine FUMARATE 200 MG TABLET PO SCH (22:21)
[2019-03-11] MEDS: ATORVASTATIN CA 40 MG TABLET (FP) PO SCH (22:21)
[2019-03-12] MEDS ORDERED: METHADONE HCL 10 MG TABLET ONE (04:53)
[2019-03-12] MEDS ORDERED: METHADONE HCL 40 MG DISPERSABLE TABLET ONE (04:53)
[2019-03-12] MEDS ORDERED: chlordiazePOXIDE HCL 10 MG CAPSULE PO ONE (05:00)
[2019-03-12] MEDS: METHADONE 80 MG, METHADONE 20 MG PO SCH (05:21)
[2019-03-12 09:46] VITALS: BP 138/67; PULSE 87; TEMP 96.6
--- NOTE | 2019-03-12 15:31 | DS ---
[facility] Detox Discharge Summary Admission Date: 03/07/19 Discharge Date: 03/12/19 - History Present History: Alcohol Dependence, Opioid Dependence, MMTP Additional Comments: Patient completed detox successfully and discharged safely. Patient instructed to follow up with PCP within 1-2 weeks or sooner if needs Rx. Pertinent Past History: HTN HLD Asthma GERD - Physical Exam Results Vital Signs: Vital Signs Temperature 96.6 F L 03/12/19 09:45 Pulse Rate 87 03/12/19 09:45 Respiratory Rate 20 03/12/19 09:45 Blood Pressure 138/67 03/12/19 09:45 O2 Sat by Pulse Oximetry (%) Pertinent Admission Physical Exam Findings: Withdrawal sxs Laboratory Tests 03/08/19 03/08/19 03/08/19 08:00 08:00 08:00 WBC 7.0 RBC 4.20 Hgb 13.9 Hct 42.6 MCV 101.3 H MCH 33.2 MCHC 32.7 RDW 13.0 Plt Count 203 MPV 9.0 Sodium 141 Potassium 4.1 Chloride 105 Carbon Dioxide 29 Anion Gap 6 L BUN 10.5 Creatinine 0.7 Est GFR (CKD-EPI)AfAm 118.05 Est GFR (CKD-EPI)NonAf 101.85 Random Glucose 96 Calcium 8.9 Total Bilirubin 0.3 AST 29 ALT 23 Alkaline Phosphatase 73 Total Protein 6.4 Albumin 3.6 RPR Titer Nonreactive Labs reviewed - Treatment Hospital Course: Detox Protocol Followed, Detoxed Safely, Responded well, Discharged Condition Good - Medication Discharge Medications: Ambulatory Orders Quetiapine Fumarate [Seroquel -] 400 mg PO HS #30 tablet 09/22/17 Albuterol Sulfate Inhaler - [Ventolin HFA Inhaler -] 2 inh NEB PRN 03/06/19 Atorvastatin Ca [Lipitor] 40 mg PO HS 03/07/19 Buspirone HCl [Buspar -] 10 mg PO BID 03/07/19 Fluticasone/Vilanterol [Breo Ellipta 100-25 Mcg INH] 1 each IH DAILY 03/07/19 Folic Acid - 1 mg PO DAILY tablet 03/07/19 Hydroxyzine HCl 50 mg PO BID 03/07/19 Multivitamins [Multivit ([facility] Formulary)] 1 tab PO DAILY tab 03/07/19 Omeprazole 20 mg PO DAILY 03/07/19 Thiamine HCl [Vitamin B1 -] 100 mg PO DAILY tablet 03/07/19 Varenicline Tartrate [Chantix] 1 each PO DAILY 03/07/19 - Diagnosis (1) Alcohol dependence with uncomplicated withdrawal Status: Acute (2) Acid reflux Status: Chronic Qualifiers: Esophagitis presence: esophagitis presence not specified Qualified Code(s) : K21.9 - Gastro-esophageal reflux disease without esophagitis (3) Asthma Status: Chronic Qualifiers: Asthma severity: mild Asthma persistence: intermittent Asthma complication type: uncomplicated Qualified Code(s): J45.20 - Mild intermittent asthma, uncomplicated (4) HTN (hypertension) Status: Chronic Qualifiers: (5) Hypercholesterolemia Status: Chronic (6) Nicotine dependence Status: Chronic Qualifiers: Nicotine product type: cigarettes Substance use status: uncomplicated Qualified Code(s): F17.210 - Nicotine dependence, cigarettes, uncomplicated (7) Opioid dependence on agonist therapy Status: Chronic - AMA Did Patient Leave Against Medical Advice: No (Instructed to follow up with PCP within 1-2 weeks or sooner)
== END 2019-03-12 10:00 | disposition home or self-care (01) | DRG 773 ==
LOC: YASAS 15:33 → Y6N 18:06
PROVIDERS: ADMIT Allergy & Immunology; ATTEND Allergy & Immunology
PROC: HZ2ZZZZ Detoxification Services for Substance Abuse Treatment (ICD-10-PCS; principal; 2019-03-07)
DX: F10.230 Alcohol dependence with withdrawal, uncomplicated (principal); F11.20 Opioid dependence, uncomplicated; F17.210 Nicotine dependence, cigarettes, uncomplicated; F20.0 Paranoid schizophrenia; F19.24 Other psychoactive substance dependence with psychoactive substance-induced mood disorder; F19.282 Other psychoactive substance dependence with psychoactive substance-induced sleep disorder; I10 Essential (primary) hypertension; K21.9 Gastro-esophageal reflux disease without esophagitis; J45.20 Mild intermittent asthma, uncomplicated; E78.5 Hyperlipidemia, unspecified; K42.9 Umbilical hernia without obstruction or gangrene; Z68.31 Body mass index [BMI] 31.0-31.9, adult; Z86.69 Personal history of other diseases of the nervous system and sense organs; Z87.19 Personal history of other diseases of the digestive system
CPT/HCPCS: 36415; 80053; 85027; 86593

== ENCOUNTER 2019-05-19 15:06 | Inpatient (IN) | payer OTHER ==
[2019-05-19 16:48] VITALS: BMI 31.3
--- NOTE | 2019-05-19 17:52 | HP ---
CIWA Score Nausea/Vomitin (vomiting x 2) Muscle Tremors: 4-Moderate,w/Arms Extend Anxiety: 4-Mod. Anxious/Guarded Agitation: 4-Moderately Restless Paroxysmal Sweats: 2 Orientation: 0-Oriented Tacttile Disturbances: 0-None Auditory Disturbances: 0-None Visual Disturbances: 0-None Headache: 0-None Present CIWA-Ar Total Score: 16 - Admission Criteria OASAS Guidelines: Admission for Medically Managed Detox: Requires at least one of the followin. CIWA greater than 12 2. Seizures within the past 24 hours 3. Delirium tremens within the past 24 hours 4. Hallucinations within the past 24 hours 5. Acute intervention needed for co occurring medical disorder 6. Acute intervention needed for co occurring psychiatric disorder 7. Severe withdrawal that cannot be handled at a lower level of care (continued vomiting, continued diarrhea, abnormal vital signs) requiring intravenous medication and/or fluids 8. Admitting History and Physical - Past Medical History Cardiovascular: Yes: HTN, Hyperlipdemia Pulmonary: Yes: Asthma Gastrointestinal: Yes: GERD - Smoking History Smoking history: Current every day smoker Have you smoked in the past 12 months: Yes Aproximately how many cigarettes per day: 30 - Alcohol/Substance Use Hx Alcohol Use: Yes - Social History History of Recent Travel: No [facility] Chief Complaint: Alcohol withdrawal symptoms, on Methadone maintenance therapy Allergies/Adverse Reactions: Allergies Allergy/AdvReac Type Severity Reaction Status Date / Time No Known Allergies Allergy Verified 03/06/19 13:41 History of Present Illness: 63 years old male with a long history of alcohol dependence is seeking admission to detox. Patient has been admitted multiple times to [facility], last for the period 03/06/2019 - 03/12/2019. He reports that he relapsed a month after detox. He has medical history of hypertension, Pneumonia, bronchitis, obesity, hyperlipidemia, asthma, GERD, pancreatitis and Psych. history of Bipolar disorder, depression and schizophrenia. He denies suicidal ideation at this time. Patient reports that he is on 100mg methadone maintenance with [facility]. dose is yet to be confirmed by the nurse. Patient;s urine is positive for Opioid, methadone, Fentanyl and marijuana and his ALEXANDRA is 0.203. Patient is unemployed and reports that he lives alone in the [place]. He reports eye braille translator, alcohol related seizures and blackouts. He reports that the last blackout was 4 months ago. Exam Limitations: Intoxication - Ebola screening Have you traveled outside of the country in the last 21 days: No Have you had contact with anyone from an Ebola affected area: No Do you have a fever: No - Review of Systems Constitutional: Chills, Malaise EENT: reports: No Symptoms Reported Respiratory: reports: No Symptoms reported Cardiac: reports: No Symptoms Reported GI: reports: Diarrhea, Nausea, Poor Appetite, Poor Fluid Intake, Vomiting, Abdominal cramping : reports: No Symptoms Reported Musculoskeletal: reports: No Symptoms Reported Integumentary: reports: Dryness, Flushing Neuro: reports: Tremors Endocrine: reports: No Symptoms Reported Hematology: reports: No Symptoms Reported Psychiatric: reports: Mood/Affect Appropiate, Orientated x3, Anxious, Depressed Other Systems: Reviewed and Negative Patient History - Patient Medical History Hx Anemia: No Hx Asthma: Yes (Albuterol) Hx Chronic Obstructive Pulmonary Disease (COPD): No Hx Cancer: No Hx Cardiac Disorders: No Hx Congestive Heart Failure: No Hx Hypertension: Yes (Not on medication) Hx Hypercholesterolemia: Yes (Lipitor) Hx Pacemaker: No HX Cerebrovascular Accident: No Hx Seizures: Yes (Alcohol related seizures- Not on medication) Hx Dementia: No Hx Diabetes: No Hx Gastrointestinal Disorders: Yes (GERD- Noton medication) Hx Liver Disease: No Hx Genitourinary Disorders: No Hx Sexually Transmitted Disorders: No Hx Renal Disease (ESRD): No Hx Thyroid Disease: No Hx Human Immunodeficiency Virus (HIV): No (Last Tested: Approx. 2 Years ago.) Hx Hepatitis C: No (Last Tested: Approx. 2 Years ago.) Hx Depression: No Hx Suicide Attempt: Yes (Denies suicidal ideation at this time) Hx Bipolar Disorder: Yes (Takes Seroquel.) Hx Schizophrenia: Yes Other Medical History: Pancreatitis - Patient Surgical History Past Surgical History: Yes Hx Neurologic Surgery: No Hx Cataract Extraction: No Hx Cardiac Surgery: No Hx Lung Surgery: No Hx Breast Surgery: No Hx Breast Biopsy: No Hx Abdominal Surgery: No Hx Appendectomy: No Hx Cholecystectomy: No Hx Genitourinary Surgery: No Hx Section: No Hx Orthopedic Surgery: No Other Surgical History: bilateral inguinal hernia repair, AT AGE 22 Anesthesia Reaction: No - PPD History Previous Implant?: Yes Documented Results: Negative w/proof Implanted On Prior [facility] Admission?: Yes Date: 03/09/19 Results: 0 mm. PPD to be Administered?: No - Reproductive History Patient is a Female of Child Bearing Age (11 -55 yrs old): No (male) - Smoking Cessation Smoking history: Current every day smoker Have you smoked in the past 12 months: Yes Aproximately how many cigarettes per day: 7 Hx Chewing Tobacco Use: No Initiated information on smoking cessation: Yes 'Breaking Loose' booklet given: 05/19/19 - Substance & Tx. History Hx Alcohol Use: Yes Hx Substance Use: Yes Substance Use Type: Alcohol, Marijuana, Opiates Hx Substance Use Treatment: Yes ([facility]) - Substances abused Heroin Substance route: Inhalation Frequency: Daily Amount used: 3 bags Age of first use: 17 Date of last use: 03/05/19 Alcohol Substance route: Oral Frequency: Daily Amount used: 2 pints Age of first use: 14 Date of last use: 05/19/19 Admission Physical Exam [facility]HS - Vital Signs Vital Signs: Vital Signs - 24 hr 05/19/19 05/19/19 16:41 17:27 Temperature 97.9 F 97.9 F Pulse Rate 79 79 Respiratory 18 18 Rate Blood Pressure 119/65 119/65 - Physical General Appearance: Yes: Severe Distress HEENTM: Yes: Within Normal Limits Respiratory: Yes: Lungs Clear, Stridor Neck: Yes: Within Normal Limits Breast: Yes: Breast Exam Deferred Cardiology: Yes: Regular Rhythm, Regular Rate Abdominal: Yes: Protuberent Genitourinary: Yes: Within Normal Limits Back: Yes: Normal Inspection Musculoskeletal: Yes: Within Normal Limits Extremities: Yes: Tremors Neurological: Yes: Alert, Normal Mood/Affect Integumentary: Yes: Warm Lymphatic: Yes: Within Normal Limits - Diagnostic (1) Alcohol related seizure Current Visit: No Status: Chronic (2) Alcohol dependence with uncomplicated withdrawal Current Visit: Yes Status: Acute (3) Bronchitis Current Visit: Yes Status: Chronic (4) Pneumonia Current Visit: No Status: Resolved (5) Acid reflux Current Visit: Yes Status: Chronic Qualifiers: Esophagitis presence: esophagitis presence not specified Qualified Code(s) : K21.9 - Gastro-esophageal reflux disease without esophagitis (6) Asthma Current Visit: Yes Status: Chronic Qualifiers: Asthma severity: mild Asthma persistence: intermittent Asthma complication type: uncomplicated Qualified Code(s): J45.20 - Mild intermittent asthma, uncomplicated (7) HTN (hypertension) Current Visit: Yes Status: Chronic Qualifiers: (8) Hypercholesterolemia Current Visit: Yes Status: Chronic (9) Methadone maintenance therapy patient Current Visit: Yes Status: Chronic (10) Nicotine dependence Current Visit: Yes Status: Chronic Qualifiers: Nicotine product type: cigarettes Substance use status: uncomplicated Qualified Code(s): F17.210 - Nicotine dependence, cigarettes, uncomplicated (11) Obesity (BMI 30.0-34.9) Current Visit: Yes Status: Chronic Comment: BMI 31.3 (12) Schizophrenia Current Visit: Yes Status: Chronic Comment: Self reports. Patient is asymptomatic Cleared for Admission S - [facility] Level of Care: Medically Managed Detox Regimen/Protocol: Librium Claeared for Rehab Admission: No Breathalyzer - Breathalyzer Breathalyzer: 0.203 Urine Drug Screen - Test Device Lot number: [id number] Expiration date: 11/06/20 - Control Is test valid?: Yes - Results Drug screen NEGATIVE: No Urine drug screen results: THC-Marijuana, FEN-Fentanyl, MOP-Opiates, MTD- Methadone Inpatient Rehab Admission - Rehab Decision to Admit Inpatient rehab admission?: No
[2019-05-19] MEDS ORDERED: MAG HYDROX/AL HYDROX/SIMETH 30 ML UNIT-DOSE CUP PO PRN (18:22)
[2019-05-19] MEDS ORDERED: MAGNESIUM CITRATE 300 ML BOTTLE PO PRN (18:22)
[2019-05-19] MEDS ORDERED: NICOTINE POLACRILEX 2 MG GUM BUC PRN (18:22)
[2019-05-19] MEDS ORDERED: BISMUTH SUBSALICYLATE 524 MG/30 ML UD PO PRN (18:22)
[2019-05-19] MEDS ORDERED: ACETAMINOPHEN 325 MG TABLET (FP) PO PRN ×2 (18:22)
[2019-05-19] MEDS ORDERED: METHOCARBAMOL 500 MG TABLET PO PRN (18:22)
[2019-05-19] MEDS ORDERED: chlordiazePOXIDE HCL 25 MG CAPSULE PO PRN (18:22)
[2019-05-19] MEDS ORDERED: MAGNESIUM HYDROX 2400MG/30ML ORAL SUSPENSION 30 ML CUP PO PRN (18:22)
[2019-05-19] MEDS ORDERED: MENTHOL/PHENOL 1 EACH UD MM PRN (18:22)
[2019-05-19] MEDS ORDERED: IBUPROFEN 400 MG TABLET (FP) PO PRN (18:22)
[2019-05-19] MEDS ORDERED: hydrOXYzine PAMOATE 25 MG CAPSULE (FP) PO PRN (18:22)
[2019-05-19] MEDS ORDERED: ALBUTEROL SO4 8 GM HFA INHALER IH SCH (18:30)
[2019-05-19] MEDS: MELATONIN 5 MG TABLETS PO PRN (22:04)
[2019-05-19] MEDS: chlordiazePOXIDE HCL 25 MG CAPSULE PO SCH (22:04)
[2019-05-19] MEDS: THIAMINE HCL 100 MG TABLET (FP) PO SCH (22:04)
[2019-05-19] MEDS: ATORVASTATIN CA 40 MG TABLET (FP) PO SCH (22:04)
[2019-05-20] MEDS: chlordiazePOXIDE HCL 25 MG CAPSULE PO SCH ×4 (05:42→23:47)
--- NOTE | 2019-05-20 09:01 | EKG ---
Test Reason : Blood Pressure : / mmHG Vent. Rate : 071 BPM Atrial Rate : 071 BPM P-R Int : 172 ms QRS Dur : 094 ms QT Int : 388 ms P-R-T Axes : 076 074 061 degrees QTc Int : 421 ms NORMAL SINUS RHYTHM NORMAL ECG WHEN COMPARED WITH ECG OF 06-MAR-2019 20:26, NO SIGNIFICANT CHANGE WAS FOUND Confirmed by ANUP LOONEY MD ([id number]) on 05/20/2019 9:01:01 AM Referred By: Confirmed By:ANUP LOONEY MD
[2019-05-20] MEDS ORDERED: METHADONE HCL 10 MG TABLET PO ONE (09:50)
[2019-05-20 09:58] LABS: HEMATOCRIT 45.6 % (35.4-49); HEMOGLOBIN 15.1 GM/dL (11.7-16.9); MCH 33.8 pg (25.7-33.7); MCHC 33.2 g/dl (32.0-35.9); MEAN CELL VOLUME 101.9 fl (80-96); PLATELET COUNT 195 K/MM3 (134-434); RBC 4.48 M/mm3 (4.00-5.60); RDW 13.9 % (11.9-15.9); WHITE BLOOD COUNT 6.4 K/mm3 (4.0-10.0)
[2019-05-20] MEDS: PRENATAL VITAMINS W/ FOLIC ACID TABLET (FP) PO SCH (10:04)
[2019-05-20] MEDS: NICOTINE 14 MG/24 HOURS TOPICAL PATCH TD SCH (10:04)
[2019-05-20] MEDS: PANTOPRAZOLE 20 MG TABLET (FP) PO SCH (10:05)
[2019-05-20] MEDS ORDERED: METHADONE 80 MG, METHADONE 20 MG PO ONE (10:45)
[2019-05-20 10:51] LABS: ALBUMIN 3.8 g/dl (3.4-5.0); BILIRUBIN,TOTAL 0.8 mg/dL (0.2-1); BLOOD UREA NITROGEN 10.2 mg/dL (7-18); CALCIUM 8.7 mg/dL (8.5-10.1); CREATININE 0.7 mg/dL (0.55-1.3); POTASSIUM 3.8 mmol/L (3.5-5.1); TOT PROT 6.8 g/dl (6.4-8.2)
[2019-05-20] MEDS ORDERED: METHADONE HCL 10 MG TABLET ONE (11:05)
[2019-05-20] MEDS ORDERED: METHADONE HCL 40 MG DISPERSABLE TABLET ONE (11:06)
--- NOTE | 2019-05-20 11:34 | PN ---
S CIWA - CIWA Score Nausea/Vomitin-No Nausea/No Vomiting Muscle Tremors: 3 Anxiety: 3 Agitation: 3 Paroxysmal Sweats: 3 Orientation: 0-Oriented Tacttile Disturbances: 0-None Auditory Disturbances: 0-None Visual Disturbances: 0-None Headache: 0-None Present CIWA-Ar Total Score: 12 S Progress Note (SOAP) Subjective: sweats shakes interrupted sleep tired Objective: 05/20/19 11:29 Vital Signs Temperature 98.1 F 05/20/19 09:32 Pulse Rate 63 05/20/19 09:32 Respiratory Rate 16 05/20/19 09:32 Blood Pressure 128/77 05/20/19 09:32 O2 Sat by Pulse Oximetry (%) Laboratory Tests 05/20/19 05/20/19 07:15 07:15 WBC 6.4 RBC 4.48 Hgb 15.1 Hct 45.6 MCV 101.9 H MCH 33.8 H MCHC 33.2 RDW 13.9 Plt Count 195 MPV 9.0 Sodium 137 Potassium 3.8 Chloride 98 Carbon Dioxide 34 H Anion Gap 5 L BUN 10.2 Creatinine 0.7 Est GFR (CKD-EPI)AfAm 118.05 Est GFR (CKD-EPI)NonAf 101.85 Random Glucose 92 Calcium 8.7 Total Bilirubin 0.8 AST 162 H ALT 70 H Alkaline Phosphatase 72 Total Protein 6.8 Albumin 3.8 labs noted elevated ast/alt; d/c tylenol aaox3 ambulating no acute distress Assessment: 05/20/19 11:34 withdrawals Plan: continue detox increase fluids
[2019-05-20] MEDS ORDERED: ALBUTEROL SO4 8 GM HFA INHALER IH PRN (11:38)
[2019-05-20] MEDS ORDERED: ALBUTEROL SO4 2.5/IPRATROPIUM 0.5 INH SOL 3 ML VIAL.NEB. NEB PRN (14:10)
--- NOTE | 2019-05-20 14:21 | PN ---
[facility] Progress Note Note: Patient complained of congestion and coughing up green sputum. Reported that it has been going on for a couple weeks now Symptoms are getting worse not better H/o of asthma No acute distress at this time Lungs CTA Duo neb ordered prn Z-pack ordered for prophylaxis
[2019-05-20] MEDS ORDERED: AZITHROMYCIN 500 MG TABLET PO ONE (14:30)
--- NOTE | 2019-05-20 16:40 | CONSULT ---
[facility] Psychiatric Consult - Data Date of interview: 05/20/19 Admission source: [facility] Identifying data: Revisit to [facility] and admission to [address] [place] [address] for this 63 y/o AA male self-referred for detoxification. JOSELYN issues : alcohol, opioid, nicotine. Patient is , a father of six, domiciled, unemployed and supported on SSI benefits. Substance Abuse History: Discussed with patient. Details in current [facility] report as follows : Smoking history: Current every day smoker. Have you smoked in the past 12 months: Yes. Aproximately how many cigarettes per day: 7. Hx Chewing Tobacco Use: No. Initiated information on smoking cessation: Yes. 'Breaking Loose' booklet given: 05/19/19. - Substance & Tx. History. Hx Alcohol Use: Yes. Hx Substance Use: Yes. Substance Use Type: Alcohol, Marijuana, Opiates. Hx Substance Use Treatment: Yes ([facility]). - Substances abused. Heroin. Substance route: Inhalation. Frequency: Daily. Amount used: 3 bags. Age of first use: 17. Date of last use: 03/05/19. Alcohol. Substance route: Oral. Frequency: Daily. Amount used: 2 pints. Age of first use: 14. Date of last use: 05/19/19 Medical History: Medical profile is remarkable for bronchial asthma, dyslipidemia, antecedent of pancreatitis and withdrawal-related seizures, GERD, hypertension and history of bilateral inguinal herniorraphy. Psychiatric History: Patient presents with an extensive history of mental illness. Diagnosed with Paranoid Schizophrenia (age 18). Background of multiple psychiatric hospitalizations ([facility], [facility], [facility]. Mr Chase is followed at [facility] in the [place], [place] (medication management : zoloft 100 mg/day + seroquel 400 mg/hs + buspar 10 mg/bid). Currently, the patient is also on methadone maintenance (100 mg/day) at the [facility] MMTP program in [facility]. Patient denies history of suicide attempts. Physical/Sexual Abuse/Trauma History: Not discussed. Patient denies. Additional Comment: Urine drug screen results: THC-Marijuana, FEN-Fentanyl, MOP- Opiates, MTD-Methadone. Noted. Mental Status Exam - Mental Status Exam Alert and Oriented to: Time, Place, Person Cognitive Function: Good Patient Appearance: Well Groomed Mood: Hopeful, Euthymic Affect: Appropriate, Normal Range Patient Behavior: Fatigued, Appropriate, Cooperative Speech Pattern: Clear Voice Loudness: Normal Thought Process: Intact, Goal Oriented Thought Disorder: Not Present Hallucinations: Denies Suicidal Ideation: Denies Homicidal Ideation: Denies Insight/Judgement: Poor Sleep: Poorly, Difficulty falling asleep Appetite: Good Muscle strength/Tone: Normal Gait/Station: Normal Psychiatric Findings - Problem List ([place] 1, 2,3) (1) Alcohol dependence with uncomplicated withdrawal Current Visit: Yes Status: Acute (2) Opioid dependence on agonist therapy Current Visit: Yes Status: Chronic (3) Cannabis dependence Current Visit: Yes Status: Chronic (4) Nicotine dependence Current Visit: Yes Status: Chronic Qualifiers: Nicotine product type: cigarettes Substance use status: uncomplicated Qualified Code(s): F17.210 - Nicotine dependence, cigarettes, uncomplicated (5) Schizophrenia Current Visit: Yes Status: Chronic Comment: As per history. (6) Insomnia Current Visit: Yes Status: Chronic - Initial Treatment Plan Initial Treatment Plan: Psychoeducation. Sleep hygiene. Detoxification. AA meetings. Support. Resumed : buspar 10 mg po bid + seroquel 200 mg po hs ( reduced as a caution against oversedation due to drug-drug interactions). Side effects/benefits are discussed with patient. Mr Chase is in agreement with this plan of care. Observation.
[2019-05-20] MEDS: ATORVASTATIN CA 40 MG TABLET (FP) PO SCH (21:55)
[2019-05-20] MEDS: QUEtiapine FUMARATE 200 MG TABLET PO SCH (21:56)
[2019-05-20] MEDS: busPIRone HCL 10 MG TABLET (FP) PO SCH (21:56)
[2019-05-20] MEDS: THIAMINE HCL 100 MG TABLET (FP) PO SCH (23:47)
[2019-05-21] MEDS ORDERED: METHADONE HCL 10 MG TABLET ONE (04:16)
[2019-05-21] MEDS ORDERED: METHADONE HCL 40 MG DISPERSABLE TABLET ONE (04:16)
[2019-05-21] MEDS: METHADONE 80 MG, METHADONE 20 MG PO SCH (05:30)
[2019-05-21] MEDS: chlordiazePOXIDE HCL 25 MG CAPSULE PO SCH ×4 (05:31→22:03)
[2019-05-21] MEDS ORDERED: METHADONE HCL 40 MG DISPERSABLE TABLET PO SCH (06:00)
[2019-05-21] MEDS: PRENATAL VITAMINS W/ FOLIC ACID TABLET (FP) PO SCH (10:15)
[2019-05-21] MEDS: PANTOPRAZOLE 20 MG TABLET (FP) PO SCH (10:15)
[2019-05-21] MEDS: NICOTINE 14 MG/24 HOURS TOPICAL PATCH TD SCH (10:15)
[2019-05-21] MEDS: busPIRone HCL 10 MG TABLET (FP) PO SCH ×2 (10:15→22:03)
[2019-05-21] MEDS: AZITHROMYCIN 500 MG TABLET PO SCH (10:17)
[2019-05-21] MEDS ORDERED: ALBUTEROL SO4 8 GM HFA INHALER IH PRN (14:49)
--- NOTE | 2019-05-21 14:49 | PN ---
[facility] CIWA - CIWA Score Nausea/Vomitin-Mild Nausea/No Vomiting Muscle Tremors: 2 Anxiety: 2 Agitation: 2 Paroxysmal Sweats: 2 Orientation: 0-Oriented Tacttile Disturbances: 0-None Auditory Disturbances: 0-None Visual Disturbances: 0-None Headache: 0-None Present CIWA-Ar Total Score: 9 [facility] Progress Note (SOAP) Subjective: Tremor Objective: 05/21/19 14:46 Last Vital Signs Temp Pulse Resp BP Pulse Ox 99.5 F 73 18 147/84 05/21/19 09:30 05/21/19 09:30 05/21/19 09:30 05/21/19 09:30 Elevated b/p: has htn, not on medication Laboratory Tests 05/20/19 05/20/19 05/20/19 07:15 07:15 07:15 WBC 6.4 RBC 4.48 Hgb 15.1 Hct 45.6 MCV 101.9 H MCH 33.8 H MCHC 33.2 RDW 13.9 Plt Count 195 MPV 9.0 Sodium 137 Potassium 3.8 Chloride 98 Carbon Dioxide 34 H Anion Gap 5 L BUN 10.2 Creatinine 0.7 Est GFR (CKD-EPI)AfAm 118.05 Est GFR (CKD-EPI)NonAf 101.85 Random Glucose 92 Calcium 8.7 Total Bilirubin 0.8 AST 162 H ALT 70 H Alkaline Phosphatase 72 Total Protein 6.8 Albumin 3.8 RPR Titer Nonreactive Labs reviewed: AST 162 (high), ALT (high) Assessment: 05/21/19 14:47 Withdrawal sxs Noted with HTN and transaminitis Plan: Continue detox Encouraged PO water intake HTN: start clonidine prn, monitor b/p, consider initiating routine antihypertensive if warranted, follow up with PCP for management Transaminitis: most likely from alcoholism, repeat AST, ALT
[2019-05-21] MEDS ORDERED: cloNIDine HCL 0.1 MG TABLET PO PRN (14:51)
[2019-05-21] MEDS: ATORVASTATIN CA 40 MG TABLET (FP) PO SCH (22:03)
[2019-05-21] MEDS: THIAMINE HCL 100 MG TABLET (FP) PO SCH (22:03)
[2019-05-21] MEDS: QUEtiapine FUMARATE 200 MG TABLET PO SCH (22:03)
[2019-05-22] MEDS ORDERED: chlordiazePOXIDE HCL 10 MG CAPSULE PO PRN
[2019-05-22] MEDS ORDERED: METHADONE HCL 10 MG TABLET ONE (03:36)
[2019-05-22] MEDS ORDERED: METHADONE HCL 40 MG DISPERSABLE TABLET ONE (03:37)
[2019-05-22] MEDS: chlordiazePOXIDE HCL 10 MG CAPSULE PO SCH ×4 (06:09→22:12)
[2019-05-22] MEDS: METHADONE 80 MG, METHADONE 20 MG PO SCH (06:09)
[2019-05-22 10:04] LABS: SGOT/AST 69 U/L (15-37); SGPT/ALT 54 U/L (13-61)
[2019-05-22] MEDS: PRENATAL VITAMINS W/ FOLIC ACID TABLET (FP) PO SCH (10:11)
[2019-05-22] MEDS: PANTOPRAZOLE 20 MG TABLET (FP) PO SCH (10:11)
[2019-05-22] MEDS: AZITHROMYCIN 500 MG TABLET PO SCH (10:11)
[2019-05-22] MEDS: busPIRone HCL 10 MG TABLET (FP) PO SCH ×2 (10:12→22:12)
[2019-05-22] MEDS: NICOTINE 14 MG/24 HOURS TOPICAL PATCH TD SCH (10:12)
--- NOTE | 2019-05-22 10:58 | PN ---
[facility] CIWA - CIWA Score Nausea/Vomitin-No Nausea/No Vomiting Muscle Tremors: 2 Anxiety: 1-Mildly Anxious Agitation: 2 Paroxysmal Sweats: 2 Orientation: 0-Oriented Tacttile Disturbances: 0-None Auditory Disturbances: 0-None Visual Disturbances: 0-None Headache: 0-None Present CIWA-Ar Total Score: 7 S Progress Note (SOAP) Subjective: sweats tired Objective: 05/22/19 10:57 Vital Signs Temperature 97.2 F L 05/22/19 05:00 Pulse Rate 62 05/22/19 05:00 Respiratory Rate 05/22/19 05:00 Blood Pressure 125/64 05/22/19 05:00 O2 Sat by Pulse Oximetry (%) aaox3 ambulating no acute distress Assessment: 05/22/19 10:57 mild withdrawals Plan: continue detox increase fluids
[2019-05-22] MEDS ORDERED: BUDESONIDE/FORMETEROL FUMARATE 80/4.5 mcg INHALER IH ONE (15:06)
[2019-05-22] MEDS: THIAMINE HCL 100 MG TABLET (FP) PO SCH (22:12)
[2019-05-22] MEDS: ATORVASTATIN CA 40 MG TABLET (FP) PO SCH (22:12)
[2019-05-22] MEDS: BUDESONIDE/FORMETEROL FUMARATE 80/4.5 mcg INHALER IH SCH (22:12)
[2019-05-22] MEDS: QUEtiapine FUMARATE 200 MG TABLET PO SCH (22:12)
[2019-05-22] MEDS: MELATONIN 5 MG TABLETS PO PRN (22:13)
[2019-05-23] MEDS ORDERED: METHADONE HCL 10 MG TABLET ONE (04:01)
[2019-05-23] MEDS ORDERED: METHADONE HCL 40 MG DISPERSABLE TABLET ONE (04:02)
[2019-05-23] MEDS: chlordiazePOXIDE HCL 10 MG CAPSULE PO SCH ×2 (06:31→17:32)
[2019-05-23] MEDS: METHADONE 80 MG, METHADONE 20 MG PO SCH (06:31)
[2019-05-23] MEDS ORDERED: AZITHROMYCIN 250 MG TABLET PO SCH (10:00)
[2019-05-23] MEDS: NICOTINE 14 MG/24 HOURS TOPICAL PATCH TD SCH (10:09)
[2019-05-23] MEDS: PANTOPRAZOLE 20 MG TABLET (FP) PO SCH (10:09)
[2019-05-23] MEDS: PRENATAL VITAMINS W/ FOLIC ACID TABLET (FP) PO SCH (10:09)
[2019-05-23] MEDS: busPIRone HCL 10 MG TABLET (FP) PO SCH ×2 (10:09→22:04)
[2019-05-23] MEDS: BUDESONIDE/FORMETEROL FUMARATE 80/4.5 mcg INHALER IH SCH ×2 (10:10→22:04)
--- NOTE | 2019-05-23 10:52 | PN ---
[facility] CIWA - CIWA Score Nausea/Vomitin-No Nausea/No Vomiting Muscle Tremors: 2 Anxiety: 0-No Anxiety, at Ease Agitation: 0-Normal Activity Paroxysmal Sweats: No Perspiration Orientation: 0-Oriented Tacttile Disturbances: 0-None Auditory Disturbances: 0-None Visual Disturbances: 0-None Headache: 0-None Present CIWA-Ar Total Score: 2 [facility] Progress Note (SOAP) Subjective: sleepy tired Objective: 05/23/19 10:51 Vital Signs Temperature 97.5 F L 05/23/19 05:00 Pulse Rate 60 05/23/19 05:00 Respiratory Rate 18 05/23/19 05:00 Blood Pressure 91/52 L 05/23/19 05:00 O2 Sat by Pulse Oximetry (%) Laboratory Tests 05/20/19 05/20/19 05/20/19 07:15 07:15 07:15 WBC 6.4 RBC 4.48 Hgb 15.1 Hct 45.6 MCV 101.9 H MCH 33.8 H MCHC 33.2 RDW 13.9 Plt Count 195 MPV 9.0 Sodium 137 Potassium 3.8 Chloride 98 Carbon Dioxide 34 H Anion Gap 5 L BUN 10.2 Creatinine 0.7 Est GFR (CKD-EPI)AfAm 118.05 Est GFR (CKD-EPI)NonAf 101.85 Random Glucose 92 Calcium 8.7 Total Bilirubin 0.8 AST 162 H ALT 70 H Alkaline Phosphatase 72 Total Protein 6.8 Albumin 3.8 RPR Titer Nonreactive 05/22/19 08:00 WBC RBC Hgb Hct MCV MCH MCHC RDW Plt Count MPV Sodium Potassium Chloride Carbon Dioxide Anion Gap BUN Creatinine Est GFR (CKD-EPI)AfAm Est GFR (CKD-EPI)NonAf Random Glucose Calcium Total Bilirubin AST 69 H ALT 54 Alkaline Phosphatase Total Protein Albumin RPR Titer labs noted liver enzymes decreased aaox3 ambulating no acute distress Assessment: 05/23/19 10:52 mild withdrawals Plan: continue detox d/c in am
[2019-05-23] MEDS: QUEtiapine FUMARATE 200 MG TABLET PO SCH (22:04)
[2019-05-23] MEDS: ATORVASTATIN CA 40 MG TABLET (FP) PO SCH (22:04)
[2019-05-23] MEDS: THIAMINE HCL 100 MG TABLET (FP) PO SCH (22:04)
[2019-05-23] MEDS: MELATONIN 5 MG TABLETS PO PRN (22:05)
[2019-05-24] MEDS ORDERED: METHADONE HCL 40 MG DISPERSABLE TABLET ONE (03:41)
[2019-05-24] MEDS ORDERED: METHADONE HCL 10 MG TABLET ONE (03:41)
[2019-05-24] MEDS ORDERED: chlordiazePOXIDE HCL 10 MG CAPSULE PO ONE (05:00)
[2019-05-24] MEDS: METHADONE 80 MG, METHADONE 20 MG PO SCH (06:55)
--- NOTE | 2019-05-24 08:55 | DS ---
[facility] Detox Discharge Summary Admission Date: 05/19/19 Discharge Date: 05/24/19 - History Present History: Alcohol Dependence, Cannabis Dependence, MMTP - Physical Exam Results Vital Signs: Vital Signs Temperature 97.7 F 05/23/19 21:46 Pulse Rate 69 05/23/19 21:46 Respiratory Rate 18 05/24/19 03:30 Blood Pressure 127/74 05/23/19 21:46 O2 Sat by Pulse Oximetry (%) Pertinent Admission Physical Exam Findings: Vital Signs Temperature 97.7 F 05/23/19 21:46 Pulse Rate 69 05/23/19 21:46 Respiratory Rate 18 05/24/19 03:30 Blood Pressure 127/74 05/23/19 21:46 O2 Sat by Pulse Oximetry (%) Laboratory Tests 05/20/19 05/20/19 05/20/19 07:15 07:15 07:15 WBC 6.4 RBC 4.48 Hgb 15.1 Hct 45.6 MCV 101.9 H MCH 33.8 H MCHC 33.2 RDW 13.9 Plt Count 195 MPV 9.0 Sodium 137 Potassium 3.8 Chloride 98 Carbon Dioxide 34 H Anion Gap 5 L BUN 10.2 Creatinine 0.7 Est GFR (CKD-EPI)AfAm 118.05 Est GFR (CKD-EPI)NonAf 101.85 Random Glucose 92 Calcium 8.7 Total Bilirubin 0.8 AST 162 H ALT 70 H Alkaline Phosphatase 72 Total Protein 6.8 Albumin 3.8 RPR Titer Nonreactive 05/22/19 08:00 WBC RBC Hgb Hct MCV MCH MCHC RDW Plt Count MPV Sodium Potassium Chloride Carbon Dioxide Anion Gap BUN Creatinine Est GFR (CKD-EPI)AfAm Est GFR (CKD-EPI)NonAf Random Glucose Calcium Total Bilirubin AST 69 H ALT 54 Alkaline Phosphatase Total Protein Albumin RPR Titer aaox3 ambulating no acute distress - Treatment Hospital Course: Detox Protocol Followed, Detoxed Safely, Responded well, Discharged Condition Good, Rehab Referral Accepted Patient has Accepted a Rehab Referral to: referred to inpatient rehab - Medication Discharge Medications: Ambulatory Orders Quetiapine Fumarate [Seroquel -] 400 mg PO HS #30 tablet 09/22/17 Albuterol Sulfate Inhaler - [Ventolin HFA Inhaler -] 2 inh NEB PRN 03/06/19 Atorvastatin Ca [Lipitor] 40 mg PO HS 03/07/19 Buspirone HCl [Buspar -] 10 mg PO BID 03/07/19 Fluticasone/Vilanterol [Breo Ellipta 100-25 Mcg INH] 1 each IH DAILY 03/07/19 Folic Acid - 1 mg PO DAILY tablet 03/07/19 Hydroxyzine HCl 50 mg PO BID 03/07/19 Multivitamins [Multivit ([facility] Formulary)] 1 tab PO DAILY tab 03/07/19 Omeprazole 20 mg PO DAILY 03/07/19 Thiamine HCl [Vitamin B1 -] 100 mg PO DAILY tablet 03/07/19 Varenicline Tartrate [Chantix] 1 each PO DAILY 03/07/19 - Diagnosis (1) Alcohol dependence with uncomplicated withdrawal Current Visit: Yes Status: Chronic (2) Acid reflux Current Visit: Yes Status: Chronic Qualifiers: Esophagitis presence: without esophagitis Qualified Code(s): K21.9 - Gastro -esophageal reflux disease without esophagitis (3) Asthma Current Visit: Yes Status: Chronic Qualifiers: Asthma severity: mild Asthma persistence: intermittent Asthma complication type: uncomplicated Qualified Code(s): J45.20 - Mild intermittent asthma, uncomplicated (4) Bronchitis Current Visit: Yes Status: Chronic (5) Cannabis dependence Current Visit: Yes Status: Chronic (6) HTN (hypertension) Current Visit: Yes Status: Chronic Qualifiers: Hypertension type: essential hypertension (7) Hypercholesterolemia Current Visit: Yes Status: Chronic (8) Insomnia Current Visit: Yes Status: Chronic (9) Methadone maintenance therapy patient Current Visit: Yes Status: Chronic (10) Nicotine dependence Current Visit: Yes Status: Chronic Qualifiers: Nicotine product type: cigarettes Substance use status: uncomplicated Qualified Code(s): F17.210 - Nicotine dependence, cigarettes, uncomplicated (11) Obesity (BMI 30.0-34.9) Current Visit: Yes Status: Chronic (12) Opioid dependence on agonist therapy Current Visit: Yes Status: Chronic (13) Schizophrenia Current Visit: Yes Status: Chronic (14) Drug-induced mood disorder Current Visit: No Status: Acute (15) Substance induced mood disorder Current Visit: No Status: Acute (16) Substance-induced sleep disorder Current Visit: No Status: Acute (17) Bronchial asthma Current Visit: No Status: Chronic (18) History of bipolar disorder Current Visit: No Status: Chronic (19) Opioid dependence on agonist therapy Current Visit: No Status: Chronic (20) Paranoid schizophrenia Current Visit: No Status: Chronic (21) Umbilical hernia Current Visit: No Status: Chronic Qualifiers: Obstruction and gangrene presence: without obstruction or gangrene Qualified Code(s): K42.9 - Umbilical hernia without obstruction or gangrene (22) History of schizophrenia Current Visit: No Status: Suspected - AMA Did Patient Leave Against Medical Advice: No
[2019-05-24] MEDS: PANTOPRAZOLE 20 MG TABLET (FP) PO SCH (09:53)
[2019-05-24] MEDS: busPIRone HCL 10 MG TABLET (FP) PO SCH (09:53)
[2019-05-24] MEDS: PRENATAL VITAMINS W/ FOLIC ACID TABLET (FP) PO SCH (09:53)
[2019-05-24] MEDS: BUDESONIDE/FORMETEROL FUMARATE 80/4.5 mcg INHALER IH SCH (09:53)
[2019-05-24] MEDS: NICOTINE 14 MG/24 HOURS TOPICAL PATCH TD SCH (09:56)
[2019-05-24 12:10] VITALS: BP 143/79; PULSE 89; TEMP 98.2
== END 2019-05-24 11:26 | disposition home or self-care (01) | DRG 773 ==
LOC: YASAS 15:06 → Y6N 18:41
PROVIDERS: ADMIT Allergy & Immunology; ATTEND Allergy & Immunology
PROC: HZ2ZZZZ Detoxification Services for Substance Abuse Treatment (ICD-10-PCS; principal; 2019-05-19)
DX: F10.230 Alcohol dependence with withdrawal, uncomplicated (principal); F10.220 Alcohol dependence with intoxication, uncomplicated; F11.20 Opioid dependence, uncomplicated; F12.20 Cannabis dependence, uncomplicated; F17.210 Nicotine dependence, cigarettes, uncomplicated; F20.0 Paranoid schizophrenia; F25.9 Schizoaffective disorder, unspecified; F19.24 Other psychoactive substance dependence with psychoactive substance-induced mood disorder; F19.282 Other psychoactive substance dependence with psychoactive substance-induced sleep disorder; I10 Essential (primary) hypertension; E78.5 Hyperlipidemia, unspecified; G47.00 Insomnia, unspecified; J40 Bronchitis, not specified as acute or chronic; J45.20 Mild intermittent asthma, uncomplicated; R74.0 Nonspecific elevation of levels of transaminase and lactic acid dehydrogenase [LDH]; K21.9 Gastro-esophageal reflux disease without esophagitis; K42.9 Umbilical hernia without obstruction or gangrene; E66.9 Obesity, unspecified; Z68.31 Body mass index [BMI] 31.0-31.9, adult; Z86.69 Personal history of other diseases of the nervous system and sense organs; Z91.5 Personal history of self-harm
CPT/HCPCS: 36415; 80053; 84450; 84460; 85027; 86593; 93005; 93010; 94640